=== PATIENT | male | born 1990 | race Caucasian/White ===

== ENCOUNTER 2020-02-26 11:14 | Emergency (ER) | payer SELFPAY ==
--- NOTE | 2020-02-26 12:04 | RAD REPORT ---
EXAM DESCRIPTION: RAD - Chest Pa And Lat (2 Views) - 02/26/2020 11:51 am CLINICAL HISTORY: DYSPNEA Chest pain. COMPARISON: No comparisons FINDINGS: The lungs are clear. The heart is upper limit of normal in size. No displaced fractures. IMPRESSION: No acute finding suspected.
[2020-02-26 12:24] LABS: Absolute Lymphocytes (CBC) 1.3 K/uL (0.7-4.9); Basophils % 0.6 % (0-1.3); Hematocrit 45.1 % (39.6-49.0); Lymphocytes % 15.8 % (15.3-44.8); MPV 8.8 fL (7.6-11.3); RBC Red Blood Cell Count 5.66 M/uL (4.33-5.43)
[2020-02-26 12:46] LABS: BUN Blood Urea Nitrogen 15 mg/dL (7-18); Bicarbonate 32 mmol/L (21-32); Glucose Level 98 mg/dL (74-106); Sodium Level 141 mmol/L (136-145)
[2020-02-26 12:47] LABS: Potassium 2.8 mmol/L (3.5-5.1)
[2020-02-26] MEDS ORDERED: POTASSIUM 25 MEQ EFFERV TAB ONE (13:39)
[2020-02-26] MEDS ORDERED: KCL 20 MEQ/100 mL IVPB 20 MEQ/100 ML BAG IV ONE (13:40)
[2020-02-26] MEDS ORDERED: NA CHLORIDE 0.9% 1,000 ML ONE (13:40)
[2020-02-26] MEDS ORDERED: cloNIDine HCL 0.1 MG TAB ONE (13:55)
--- NOTE | 2020-02-26 14:41 | ER ---
Nurse's Notes [facility] Name: Jameel Patel Age: 29 yrs Sex: Male : 1990 Arrival Date: 02/26/2020 Time: 11:19 Bed 20 Private MD: Randy Bermudez Diagnosis: Essential (primary) hypertension;Hypokalemia Presentation: 02/25 11:23 Chief complaint: "My whole body has been cramped up for the last 2 days.". Coronavirus hb screen: Proceed with normal triage. Ebola Screen: No symptoms or risks identified at this time. Initial Sepsis Screen: Does the patient meet any 2 criteria? No. Patient's initial sepsis screen is negative. Does the patient have a suspected source of infection? No. Patient's initial sepsis screen is negative. Risk Assessment: Do you want to hurt yourself or someone else? Patient reports no desire to harm self or others. Onset of symptoms was February 24, 2020. 11:23 Method Of Arrival: Ambulatory hb 11:23 Acuity: PAT 3 hb Historical: - Allergies: 11:29 No Known Allergies; hb - Home Meds: 11:28 metoprolol tartrate 100 mg Oral tab 1 tab once daily [Active]; hb - PMHx: 11:28 Hypertension; hb - PSHx: 11:29 Aneurysm; hb - Immunization history:: Adult Immunizations up to date. - Social history:: Smoking status: Patient denies any tobacco usage or history of. Screenin:58 Abuse screen: Denies threats or abuse. Denies injuries from another. Nutritional ph screening: No deficits noted. Tuberculosis screening: No symptoms or risk factors identified. Fall Risk None identified. Assessment: 12:20 General: Appears in no apparent distress. comfortable, obese, well groomed, Behavior is ph calm, cooperative, appropriate for age, Denies fever, feeling ill. Pain: Complains of pain in buttocks, right arm, left arm, right leg and left leg Quality of pain is described as crampy, Is intermittent. Neuro: Level of Consciousness is awake, alert, obeys commands, Oriented to person, place, time, situation. Cardiovascular: Denies chest pain, lightheadedness, shortness of breath. Respiratory: Airway is patent Respiratory effort is even, unlabored, Respiratory pattern is regular, symmetrical, Denies cough, shortness of breath. GI: Patient currently denies abdominal pain, diarrhea, nausea, vomiting. Derm: Skin is intact, is healthy with good turgor, Skin is pink, warm \\T\\ dry. Musculoskeletal: Circulation, motion, and sensation intact. Range of motion: intact in all extremities. 14:00 Reassessment: Patient appears in no apparent distress at this time. Patient and/or ph family updated on plan of care and expected duration. Pain level reassessed. Patient is alert, oriented x 3, equal unlabored respirations, skin warm/dry/pink. 15:00 Reassessment: Patient appears in no apparent distress at this time. Patient and/or ph family updated on plan of care and expected duration. Pain level reassessed. Patient is alert, oriented x 3, equal unlabored respirations, skin warm/dry/pink. D/C pending completion of IV potassium. Vital Signs: 11:24 BP 191 / 135; Pulse 74; Resp 20; Temp 98(TE); Pulse Ox 96% ; Weight 197.31 kg; Height 6 hb ft. (182.88 cm); Pain 5/10; 12:44 BP 194 / 111; Pulse 79; Resp 18; Pulse Ox 98% on R/A; ph 14:00 BP 198 / 123; Pulse 82; Resp 18; Pulse Ox 98% on R/A; ph 15:00 BP 176 / 111; Pulse 78; Resp 18; Pulse Ox 98% on R/A; ph 11:24 Body Mass Index 59.00 (197.31 kg, 182.88 cm) hb ED Course: 11:19 Patient arrived in ED. mr 11:19 [facility] De Le[facility]-C [facility]. kb 11:19 Priyank Forte MD is Attending Physician. kb 11:19 Randy eBrmudez is Private Physician. mr 11:24 Triage completed. hb 11:29 Arm band placed on. hb 11:43 Graciela Graham, JUANY is Primary Nurse. ph 11:49 Chest Pa And Lat (2 Views) XRAY In Process Unspecified. EDMS 11:59 Patient has correct armband on for positive identification. Bed in low position. Call ph light in reach. Side rails up X 1. Pulse ox on. NIBP on. Door closed. Noise minimized. Warm blanket given. 12:15 Initial lab(s) drawn, by me, sent to lab. Inserted saline lock: 20 gauge in right jp3 forearm, using aseptic technique. Blood collected. 12:15 Patient maintains SpO2 saturation greater than 95% on room air. jp3 15:03 No provider procedures requiring assistance completed. ph Administered Medications: 13:45 Drug: Potassium Effervescent Tablet 50 mEq Route: PO; ph 14:00 Follow up: Response: No adverse reaction ph 13:45 Drug: NS 0.9% 1000 ml Route: IV; Rate: 1000 ml; Site: right forearm; ph 15:30 Follow up: Response: No adverse reaction; IV Status: Completed infusion ph 13:46 Drug: Potassium Chloride 20 mEq Route: IV; Rate: 1 calculated rate; Site: right forearm;ph 15:30 Follow up: Response: No adverse reaction; IV Status: Completed infusion ph 13:57 Drug: cloNIDine 0.2 mg Route: PO; ph 14:45 Follow up: Response: No adverse reaction; Blood pressure is lowered ph Outcome: 14:40 Discharge ordered by . kb 15:37 Patient left the ED. bd Signatures: Dispatcher [employer] EDMS Ana De León, PET STYLIST-C PET STYLIST-CkRosario Sousa, Vicki mr Graciela Graham RN RN Jossie Malhotra, JUANY RN Terrell Alvarez 3
--- NOTE | 2020-02-26 14:41 | EDPHYS ---
Physician Documentation [facility] Name: Jameel Patel Age: 29 yrs Sex: Male : 1990 Arrival Date: 02/26/2020 Time: 11:19 Bed 20 Private MD: Randy Bermudez ED Physician Priyank Forte HPI: 02/25 14:38 This 29 yrs old Male presents to ER via Ambulatory with complaints of Body kb aches. 14:38 Pt reports muscle cramps that started this morning. States he drank a lot of water and kb took some potassium supplements, but it didn't improve. . Onset: The symptoms/episode began/occurred today. Severity of symptoms: At their worst the symptoms were moderate in the emergency department the symptoms are unchanged. The patient has experienced similar episodes in the past. The patient has not recently seen a physician. Pt is asymptomatic of BP. States 180/120-130 is normal for him. 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 Historical: - Allergies: 11:29 No Known Allergies; hb - Home Meds: 11:28 metoprolol tartrate 100 mg Oral tab 1 tab once daily [Active]; hb - PMHx: 11:28 Hypertension; hb - PSHx: 11:29 Aneurysm; hb - Immunization history:: Adult Immunizations up to date. - Social history:: Smoking status: Patient denies any tobacco usage or history of. ROS: 14:35 Constitutional: Negative for fever, chills, and weight loss, Neck: Negative for injury, kb pain, and swelling, Cardiovascular: Negative for chest pain, palpitations, and edema, Abdomen/GI: Negative for abdominal pain, nausea, vomiting, diarrhea, and constipation, Back: Negative for injury and pain, Skin: Negative for injury, rash, and discoloration, Neuro: Negative for headache, weakness, numbness, tingling, and seizure. 14:35 Respiratory: Positive for shortness of breath, on exertion. Negative for cough, dyspnea on exertion, hemoptysis, orthopnea, pleurisy, sputum production, wheezing. 14:35 MS/extremity: Positive for muscle cramps. Exam: 14:35 Constitutional: This is a well developed, well nourished patient who is awake, alert, kb and in no acute distress. Head/Face: Normocephalic, atraumatic. ENT: Nares patent. No nasal discharge, no septal abnormalities noted. Tympanic membranes are normal and external auditory canals are clear. Oropharynx with no redness, swelling, or masses, exudates, or evidence of obstruction, uvula midline. Mucous membranes moist. Neck: Trachea midline, no thyromegaly or masses palpated, and no cervical lymphadenopathy. Supple, full range of motion without nuchal rigidity, or vertebral point tenderness. No Meningismus. Chest/axilla: Normal chest wall appearance and motion. Nontender with no deformity. No lesions are appreciated. Cardiovascular: Regular rate and rhythm with a normal S1 and S2. No gallops, murmurs, or rubs. Normal PMI, no JVD. No pulse deficits. Abdomen/GI: Soft, non-tender, with normal bowel sounds. No distension or tympany. No guarding or rebound. No evidence of tenderness throughout. Back: No spinal tenderness. No costovertebral tenderness. Full range of motion. Skin: Warm, dry with normal turgor. Normal color with no rashes, no lesions, and no evidence of cellulitis. MS/ Extremity: Pulses equal, no cyanosis. Neurovascular intact. Full, normal range of motion. Neuro: Awake and alert, GCS 15, oriented to person, place, time, and situation. Cranial nerves II-XII grossly intact. Motor strength 5/5 in all extremities. Sensory grossly intact. Cerebellar exam normal. Normal gait. 14:35 Respiratory: mild respiratory distress is noted, Respirations: labored breathing, that is mild, Breath sounds: are clear throughout. Vital Signs: 11:24 BP 191 / 135; Pulse 74; Resp 20; Temp 98(TE); Pulse Ox 96% ; Weight 197.31 kg; Height 6 hb ft. (182.88 cm); Pain 5/10; 12:44 BP 194 / 111; Pulse 79; Resp 18; Pulse Ox 98% on R/A; ph 14:00 BP 198 / 123; Pulse 82; Resp 18; Pulse Ox 98% on R/A; ph 15:00 BP 176 / 111; Pulse 78; Resp 18; Pulse Ox 98% on R/A; ph 11:24 Body Mass Index 59.00 (197.31 kg, 182.88 cm) hb MDM: 11:30 Patient medically screened. kb 14:37 Data reviewed: vital signs, nurses notes. Data interpreted: Pulse oximetry: on room air kb is 98 %. Interpretation: normal. Counseling: I had a detailed discussion with the patient and/or guardian regarding: the historical points, exam findings, and any diagnostic results supporting the discharge/admit diagnosis, lab results, the need for outpatient follow up, a family practitioner, to return to the emergency department if symptoms worsen or persist or if there are any questions or concerns that arise at home. 14:41 ED course: Pt did not c/o shortness of breath, but appeared to be short of breath so I kb asked him about it. States he had to walk down stairs and then walk when he got here so he got winded. 02/25 11:29 Order name: CBC with Diff; Complete Time: 12:47 kb 02/25 11:29 Order name: Basic Metabolic Panel; Complete Time: 12:49 kb 02/25 11:29 Order name: Chest Pa And Lat (2 Views) XRAY; Complete Time: 12:10 kb 02/25 11:29 Order name: EKG; Complete Time: 11:31 kb 02/25 11:29 Order name: EKG - Nurse/Tech; Complete Time: 11:58 kb 02/25 11:29 Order name: IV Start; Complete Time: 12:21 kb Administered Medications: 13:45 Drug: Potassium Effervescent Tablet 50 mEq Route: PO; ph 14:00 Follow up: Response: No adverse reaction ph 13:45 Drug: NS 0.9% 1000 ml Route: IV; Rate: 1000 ml; Site: right forearm; ph 15:30 Follow up: Response: No adverse reaction; IV Status: Completed infusion ph 13:46 Drug: Potassium Chloride 20 mEq Route: IV; Rate: 1 calculated rate; Site: right forearm;ph 15:30 Follow up: Response: No adverse reaction; IV Status: Completed infusion ph 13:57 Drug: cloNIDine 0.2 mg Route: PO; ph 14:45 Follow up: Response: No adverse reaction; Blood pressure is lowered ph Disposition: 19:10 Co-signature as Attending Physician, Priyank Forte MD Available for consultation in ps1 the ED. . Disposition: 02/26/20 14:40 Discharged to Home. Impression: Essential (primary) hypertension, Hypokalemia. - Condition is Stable. - Discharge Instructions: Hypertension, [place], Hypokalemia. - Medication Reconciliation Form, Thank You Letter, Antibiotic Education, Prescription Opioid Use, Work release form form. - Follow up: Emergency Department; When: As needed; Reason: Worsening of condition. Follow up: Private Physician; When: 2 - 3 days; Reason: Recheck today's complaints, Continuance of care, Re-evaluation by your physician. Signatures: Dispatcher [employer] EDMS Ana De León, PHARMACY COORDINATOR-C PHARMACY COORDINATOR-Ckpatricia Clemente RosarioGraciela Willett, RN RN Jossie Anderson, JUANY RN Priyank Forte MD MD ps1 Corrections: (The following items were deleted from the chart) 15:37 14:40 02/26/2020 14:40 Discharged to Home. Impression: Essential (primary) bd hypertension; Hypokalemia. Condition is Stable. Forms are Medication Reconciliation Form, Thank You Letter, Antibiotic Education, Prescription Opioid Use. Follow up: Emergency Department; When: As needed; Reason: Worsening of condition. Follow up: Private Physician; When: 2 - 3 days; Reason: Recheck today's complaints, Continuance of care, Re-evaluation by your physician. kb
[2020-02-26 16:18] VITALS: TEMP 98
[2020-02-26 16:25] VITALS: O2SAT 98
[2020-02-26 16:28] VITALS: BP 176/111
--- NOTE | 2020-02-27 16:20 | EKG ---
Test Date: 2020-02-26 Test Time: 11:58:47 Outpatient Receptionist: AIMEE MEASUREMENT RESULTS: Intervals: Rate: 82 MS: 192 QRSD: 132 QT: 406 QTc: 474 Heppner: P: 46 MS: 192 QRS: -37 T: 92 INTERPRETIVE STATEMENTS: Sinus rhythm with premature supraventricular complexes Left axis deviation Left ventricular hypertrophy with QRS widening and repolarization abnormality Abnormal ECG No previous ECG available for comparison Electronically Signed On 02-27-20 16:18:11 CDT by Martinez Goyal
== END 2020-02-26 15:37 | disposition home or self-care (01) ==
LOC: ER 11:14
DX: E87.6 Hypokalemia (principal); I10 Essential (primary) hypertension
CPT/HCPCS: 36415; 71046; 80048; 85025; 93005; 96365; 96366; 99284; J7030

== ENCOUNTER 2021-07-27 10:27 | Emergency (ER) | payer SELFPAY ==
[2021-07-27 11:30] LABS: BUN Blood Urea Nitrogen 11 mg/dL (7-18); Bicarbonate 32 mmol/L (21-32); Glucose Level 104 mg/dL (74-106); Magnesium 1.9 mg/dL (1.8-2.4); Sodium Level 139 mmol/L (136-145)
[2021-07-27 11:31] LABS: Absolute Lymphocytes (CBC) 1.4 K/uL (0.7-4.9); Basophils % 0.5 % (0-1.3); Hematocrit 43.7 % (39.6-49.0); Lymphocytes % 17.7 % (15.3-44.8); MPV 8.5 fL (7.6-11.3); RBC Red Blood Cell Count 5.47 M/uL (4.33-5.43)
[2021-07-27] MEDS ORDERED: CYCLOBENZAPRINE 10 MG TAB ONE (11:31)
[2021-07-27 11:32] LABS: Potassium 2.7 mmol/L (3.5-5.1)
[2021-07-27] MEDS ORDERED: POTASSIUM CL 40 MEQ in NA CHLORIDE 0.9% 1,000 ML IV ONE (12:00)
[2021-07-27] MEDS ORDERED: MAGNESIUM SULFATE 1 gm IVPB 1 GM/100 ML BAG IV ONE (12:24)
[2021-07-27] MEDS ORDERED: NA CHLORIDE 0.9% 500 ML ONE (12:29)
[2021-07-27] MEDS ORDERED: POTASSIUM CL SA 10 MEQ TAB PO ONE (13:18)
--- NOTE | 2021-07-27 13:31 | EDPHYS ---
Physician Documentation [facility] Name: Jameel Patel Age: 30 yrs Sex: Male : 1990 Arrival Date: 07/27/2021 Time: 10:29 Bed 6 Private MD: ED Physician Mando Durán HPI: 07/27 11:28 This 30 yrs old Male presents to ER via Ambulatory with complaints of Body kb Cramps. 11:29 Pt reports muscle cramps in legs that started Homero. States it feels the same as when kb his potassium has been low in the past. . Onset: The symptoms/episode began/occurred 4 day(s) ago. Severity of symptoms: At their worst the symptoms were moderate in the emergency department the symptoms are unchanged. The patient has experienced similar episodes in the past, several times. The patient has not recently seen a physician. Historical: - Allergies: 10:40 No Known Allergies; hb - Home Meds: 10:40 metoprolol tartrate 100 mg Oral tab 1 tab once daily [Active]; amlodipine oral hb [Active]; spironolactone Oral [Active]; Potassium Chloride Oral [Active]; - PMHx: 10:40 Hypertension; hb - Immunization history:: Immunization history: Client reports receiving the 2nd dose of the Covid vaccine. - Social history:: Smoking status: Patient reports use of chewing tobacco. ROS: 11:27 Constitutional: Negative for fever, chills, and weight loss. kb 11:27 MS/extremity: Positive for muscle cramps. 11:27 All other systems are negative. Exam: 11:27 Constitutional: This is a well developed, well nourished patient who is awake, alert, kb and in no acute distress. Head/Face: Normocephalic, atraumatic. ENT: Moist Mucous membranes Respiratory: Respirations even and unlabored. No increased work of breathing, no retractions or nasal flaring. Skin: Warm, dry with normal turgor. Normal color. MS/ Extremity: Pulses equal, no cyanosis. Neurovascular intact. Full, normal range of motion. Neuro: Awake and alert, GCS 15, oriented to person, place, time, and situation. Moves all extremities. Normal gait. Psych: Awake, alert, with orientation to person, place and time. Behavior, mood, and affect are within normal limits. Vital Signs: 10:39 BP 223 / 98; Pulse 93; Resp 24; Temp 98.3; Pulse Ox 95% on R/A; Weight 172.37 kg; hb Height 6 ft. (182.88 cm); Pain 8/10; 12:16 BP 197 / 124 LA (auto/lg); Pulse 73; Resp 21; Pulse Ox 100% on R/A; ap3 14:15 BP 163 / 97; Pulse 76; Pulse Ox 100% on R/A; ap3 10:39 Body Mass Index 51.54 (172.37 kg, 182.88 cm) hb MDM: 10:42 Patient medically screened. kb 11:26 Data reviewed: vital signs, nurses notes. Data interpreted: Pulse oximetry: on room air kb is 95 %. Interpretation: normal. 11:27 ED course: Pt is asymptomatic of BP. States his BP is always high and he needs to get kb his medications adjusted by PCP. 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 12:14 Counseling: I had a detailed discussion with the patient and/or guardian regarding: the kb historical points, exam findings, and any diagnostic results supporting the discharge/admit diagnosis, lab results, the need for outpatient follow up, a family practitioner, to return to the emergency department if symptoms worsen or persist or if there are any questions or concerns that arise at home. 17:29 Differential Diagnosis hypokalemia, muscle spasm. kb 07/27 10:42 Order name: CBC with Diff; Complete Time: 11:34 kb 07/27 10:42 Order name: Basic Metabolic Panel; Complete Time: 11:34 kb 07/27 10:42 Order name: Magnesium; Complete Time: 11:34 kb Administered Medications: 11:06 Drug: Flexeril (cyclobenzaprine) 10 mg Route: PO; ap3 14:15 Follow up: Response: No adverse reaction ap3 12:10 Drug: NS 0.9% with KCl 40 mEq/L 1000 ml Route: IV; Rate: 500 ml/hr; Site: right hand; ll1 13:02 Drug: Potassium Chloride 40 mEq Route: PO; ap3 14:15 Follow up: Response: No adverse reaction ap3 Disposition: 15:27 Co-signature as Attending Physician, Mando Durán MD I agree with the assessment and rn plan of care. Attestation: The patient's history, exam findings, diagnostics, and a summary of any interventions or procedures was reviewed in detail with Ana LILLY. Disposition Summary: 07/27/21 13:31 Discharge Ordered Location: Home kb Condition: Stable kb Diagnosis - Essential (primary) hypertension kb - Hypokalemia kb Followup: kb - With: Emergency Department - When: As needed - Reason: Worsening of condition Followup: kb - With: Private Physician - When: 2 - 3 days - Reason: Recheck today's complaints, Continuance of care, Re-evaluation by your physician Discharge Instructions: - Discharge Summary Sheet kb - Hypertension, Adult, [id number] kb - Hypokalemia kb - Managing Your Hypertension kb Forms: - Medication Reconciliation Form kb - Thank You Letter kb - Antibiotic Education kb - Prescription Opioid Use kb - Work release form ap3 Signatures: Dispatcher [employer] EDAna Jose FNP-C FNP-Mando Coyle MD MD rn Baxter, Heather RN JUANY Bridgette Khan RN RN ap3 Rajni Crawford RN RN ll1
--- NOTE | 2021-07-27 13:31 | ER ---
Nurse's Notes [facility] Name: Jameel Patel Age: 30 yrs Sex: Male : 1990 Arrival Date: 07/27/2021 Time: 10:29 Bed 6 Private MD: Diagnosis: Essential (primary) hypertension;Hypokalemia Presentation: 07/27 10:39 Chief complaint: Bilateral leg cramping x 2 days. Coronavirus screen: At this time, the hb client does not indicate any symptoms associated with coronavirus-19. Ebola Screen: No symptoms or risks identified at this time. Initial Sepsis Screen: Does the patient meet any 2 criteria? No. Patient's initial sepsis screen is negative. Does the patient have a suspected source of infection? No. Patient's initial sepsis screen is negative. Risk Assessment: Do you want to hurt yourself or someone else? Patient reports no desire to harm self or others. Onset of symptoms was July 26, 2021. 10:39 Method Of Arrival: Ambulatory hb 10:39 Acuity: PAT 3 hb Historical: - Allergies: 10:40 No Known Allergies; hb - Home Meds: 10:40 metoprolol tartrate 100 mg Oral tab 1 tab once daily [Active]; amlodipine oral hb [Active]; spironolactone Oral [Active]; Potassium Chloride Oral [Active]; - PMHx: 10:40 Hypertension; hb - Immunization history:: Immunization history: Client reports receiving the 2nd dose of the Covid vaccine. - Social history:: Smoking status: Patient reports use of chewing tobacco. Screenin:51 Abuse screen: Denies threats or abuse. Nutritional screening: No deficits noted. ap3 Tuberculosis screening: No symptoms or risk factors identified. Fall Risk No fall in past 12 months (0 pts). No secondary diagnosis (0 pts). IV access (20 points). Ambulatory Aid- Crutches/Cane/Walker (15 pts). Gait- Weak (10 pts.). Mental Status- Oriented to own ability (0 pts). Total Peters Fall Scale indicates Low Risk Score (25-44 pts). Fall prevention measures have been instituted. Side Rails Up X 2 Frequent Obs/Assesments occuring Family Present and informed to notify staff if they need to leave bedside As available Patient and Family Educated on Fall Prevention Program and strategies. Assessment: 10:50 General: Appears in no apparent distress. comfortable, Behavior is calm, cooperative, ap3 appropriate for age. Pain: Denies pain. Neuro: Level of Consciousness is awake, alert, obeys commands, Oriented to person, place, time, situation, Appropriate for age Moves all extremities. Cardiovascular: Capillary refill < 3 seconds Patient's skin is warm and dry. Respiratory: Airway is patent Respiratory effort is even, unlabored, Respiratory pattern is regular, symmetrical. Musculoskeletal: Reports off and on cramping in legs and upper body. 13:06 Reassessment: Patient and/or family updated on plan of care and expected duration. Pain ap3 level reassessed. Patient is alert, oriented x 3, equal unlabored respirations, skin warm/dry/pink. Vital Signs: 10:39 BP 223 / 98; Pulse 93; Resp 24; Temp 98.3; Pulse Ox 95% on R/A; Weight 172.37 kg; hb Height 6 ft. (182.88 cm); Pain 8/10; 12:16 BP 197 / 124 LA (auto/lg); Pulse 73; Resp 21; Pulse Ox 100% on R/A; ap3 14:15 BP 163 / 97; Pulse 76; Pulse Ox 100% on R/A; ap3 10:39 Body Mass Index 51.54 (172.37 kg, 182.88 cm) hb ED Course: 10:29 Patient arrived in ED. mr 10:35 Sarthak Ana, VIJAYA [facility]. kb 10:35 Mando Durán MD is Attending Physician. kb 10:40 Triage completed. hb 10:40 Arm band placed on. hb 10:50 Bridgette Khan, JUANY is Primary Nurse. ap3 10:51 Patient has correct armband on for positive identification. Call light in reach. Side ap3 rails up X 1. Adult w/ patient. efficiency manager on. Pulse ox on. NIBP on. Door closed. Noise minimized. 11:04 Inserted saline lock: 20 gauge in right hand, using aseptic technique. ap3 14:16 No provider procedures requiring assistance completed. IV discontinued, intact, ap3 bleeding controlled, No redness/swelling at site. Pressure dressing applied. Administered Medications: 11:06 Drug: Flexeril (cyclobenzaprine) 10 mg Route: PO; ap3 14:15 Follow up: Response: No adverse reaction ap3 12:10 Drug: NS 0.9% with KCl 40 mEq/L 1000 ml Route: IV; Rate: 500 ml/hr; Site: right hand; ll1 13:02 Drug: Potassium Chloride 40 mEq Route: PO; ap3 14:15 Follow up: Response: No adverse reaction ap3 Outcome: 13:31 Discharge ordered by MD. guillen 14:16 Discharged to home ambulatory. ap3 14:16 Condition: good 14:16 Discharge instructions given to patient, Instructed on discharge instructions, follow up and referral plans. Demonstrated understanding of instructions, follow-up care. 14:16 Patient left the ED. ap3 Signatures: Ana De León, VIJAYA UTILITY OPERATOR-Vicki Jones mr Jossie Anderson RN RN hb Prokisch, Amanda, RN RN ap3 Rajni Crawford RN RN ll1
[2021-07-27 14:29] VITALS: TEMP 98.3
[2021-07-27 14:31] VITALS: O2SAT 100
[2021-07-27 14:32] VITALS: BP 163/97
== END 2021-07-27 14:16 | disposition home or self-care (01) ==
LOC: ER 10:27
DX: E87.6 Hypokalemia (principal); I10 Essential (primary) hypertension; F17.220 Nicotine dependence, chewing tobacco, uncomplicated
CPT/HCPCS: 36415; 80048; 83735; 85025; 99284; J3475; J3480; J7030; J7040

== ENCOUNTER 2021-10-12 21:56 | Inpatient (IN) | payer SELFPAY ==
--- OUTSIDE RECORDS SUMMARY | 2021-10-12 21:59 | XMS REPORT | Continuity of Care Document ---
:1990 Author Organization [facility] t Address [address] Dutta [address] [place] [id number] Care Team Providers Name Role Phone Unavailable Unavailable Unavailable Problems This patient has no known problems. Allergies, Adverse Reactions, Alerts This patient has no known allergies or adverse reactions. Medications This patient has no known medications. Procedures This patient has no known procedures. Results This patient has no known results.
[2021-10-12 23:02] LABS: Absolute Lymphocytes (CBC) 0.7 K/uL (0.7-4.9); Protime INR 1.04
[2021-10-12] MEDS ORDERED: ASPIRIN 81 MG CHEWABLE TABLET ONE ×2 (23:11→23:14)
[2021-10-12 23:20] LABS: Basophils % 0.4 % (0-1.3); Hematocrit 43.7 % (39.6-49.0); Lymphocytes % 11.3 % (15.3-44.8); RBC Red Blood Cell Count 5.41 M/uL (4.33-5.43)
[2021-10-12] MEDS ORDERED: METOPROLOL TAR 50 MG TAB ONE (23:41)
[2021-10-12 23:48] LABS: Albumin 4.4 g/dL (3.4-5.0); Bilirubin Direct 0.2 mg/dL (0-0.2); Bilirubin Total 0.8 mg/dL (0.2-1.0); Magnesium 2.1 mg/dL (1.8-2.4); Protein, Total 8.8 g/dL (6.4-8.2); Troponin (Emerg Dept Use Only) 0.14 ng/mL (0.0-0.045)
[2021-10-12 23:49] LABS: Potassium 2.7 mmol/L (3.5-5.1)
[2021-10-12] MEDS ORDERED: METOPROLOL TARTRATE 5 MG/5 ML INJ IV ONE (23:50)
[2021-10-13] MEDS ORDERED: POTASSIUM 25 MEQ EFFERV TAB ONE (00:03)
[2021-10-13] MEDS ORDERED: ENOXAPARIN 100 MG/ML SYR SQ ONE (00:04)
[2021-10-13] MEDS ORDERED: KCL 20 MEQ/100 mL IVPB 100 ML IV ONE (00:04)
--- NOTE | 2021-10-13 00:04 | EDPHYS ---
Physician Documentation [facility] Name: Jameel Patel Age: 30 yrs Sex: Male : 1990 Arrival Date: 10/12/2021 Time: 22:00 Bed 16 Private MD: ED Physician Mehdi Fernandez HPI: 10/12 22:59 This 30 yrs old Male presents to ER via Ambulatory with complaints of Chest pm1 Pain > 30 y/o. 22:59 The patient or guardian reports chest pain that is located primarily in the mid-sternal pm1 area. The pain does not radiate. Associated signs and symptoms: Pertinent positives: shortness of breath, occasional cough, Pertinent negatives: abdominal pain, diaphoresis, dizziness, headache, nausea, vomiting. The chest pain is described as discomfort. Duration: The patient or guardian reports multiple episodes, that have now resolved. Modifying factors: The symptoms are alleviated by rest, the symptoms are aggravated by activity. Severity of pain: in the emergency department the pain has improved. The patient has not experienced similar symptoms in the past. The patient has not recently seen a physician. Patient presenting to the ER with complaints of chest pain started last night at work. Located in the midsternal area without radiation. His chest pain and shortness of breath is exacerbated by light activity, walking, and relieved with rest. Patient reports this chest pain and shortness of breath are worse today with exertion than yesterday. Symptoms all relieved with rest. 22:59 Patient's brother at age 33 from [place]. pm1 Historical: - Home Meds: 22:20 Spironolactone Oral [Active]; Potassium Chloride Oral [Active]; amlodipine oral kd3 [Active]; metoprolol tartrate 100 mg Oral tab 1 tab once daily [Active]; - PMHx: 22:20 Hypertension; kd3 - Immunization history:: Adult Immunizations up to date, Client reports receiving the Pepito \\T\\ Pepito single-dose vaccine. Note received in January 2021. - Social history:: Smoking status: Patient reports the use of cigarette tobacco products, denies chronic smoking, but will smoke occasionally, Patient reports use of chewing tobacco. ROS: 22:59 Constitutional: Negative for fever, chills, and weight loss. pm1 22:59 Abdomen/GI: Negative for abdominal pain, nausea, vomiting, diarrhea, and constipation, Back: Negative for injury and pain, MS/Extremity: Negative for injury and deformity, Skin: Negative for injury, rash, and discoloration, Neuro: Negative for headache, weakness, numbness, tingling, and seizure. 22:59 Cardiovascular: Positive for chest pain, with exertion, Negative for palpitations. 22:59 Respiratory: Positive for shortness of breath, on exertion. 22:59 All other systems are negative. Exam: 22:59 Constitutional: This is a well developed, well nourished patient who is awake, alert, pm1 and in no acute distress. Head/Face: Normocephalic, atraumatic. 22:59 Back: No spinal tenderness. No costovertebral tenderness. Full range of motion. Skin: Warm, dry with normal turgor. Normal color with no rashes, no lesions, and no evidence of cellulitis. MS/ Extremity: Pulses equal, no cyanosis. Neurovascular intact. Full, normal range of motion. 22:59 Eyes: Exam is negative for acute changes, Extraocular movements: no acute changes, Conjunctiva: no acute changes, no injection, Sclera: no acute changes, icterus, is not appreciated. 22:59 ENT: Exam is negative for acute changes, Mouth: no acute changes, Lips: normal, moist, Oral mucosa: normal, pink and intact, moist. 22:59 Chest/axilla: Exam negative for acute changes, Inspection: normal, Palpation: is normal. 22:59 Cardiovascular: Exam negative for acute changes, Rate: normal, Rhythm: regular, Pulses: no pulse deficits are appreciated, Heart sounds: normal. 22:59 Respiratory: Exam negative for acute changes, respiratory distress, shortness of breath, Breath sounds: are clear throughout. 22:59 Abdomen/GI: Inspection: obese Palpation: abdomen is soft and non-tender, in all quadrants. 22:59 Neuro: Exam negative for acute changes, Orientation: is normal, Mentation: is normal, Motor: is normal, moves all fours. Vital Signs: 22:10 BP 172 / 98; Pulse 98; Resp 18; Temp 99.2; Pulse Ox 98% on R/A; Pain 5/10; kd3 23:30 BP 195 / 131; Pulse 93; Resp 17; Pulse Ox 100% on R/A; kd3 23:57 Weight 165.56 kg; kd3 10/13 00:31 BP 147 / 100; Pulse 86; Resp 16; Pulse Ox 100% on R/A; kd3 01:27 BP 161 / 99; Pulse 75; Resp 18; Pulse Ox 99% on R/A; kd3 MDM: 10/12 22:24 Patient medically screened. pm1 10/13 00:00 ED course: CT chest PE protocol due to patient presented to ER with chest pain and pm1 shortness of breath with exertion, elevated troponin, elevated D-dimer. 00:15 Data reviewed: vital signs. Data interpreted: Pulse oximetry: on room air is 100 %. pm1 Interpretation: normal. 10/12 22:50 Order name: Basic Metabolic Panel pm1 10/12 22:50 Order name: CBC with Diff; Complete Time: 23:26 pm1 10/12 22:50 Order name: LFT's; Complete Time: 23:50 pm1 10/12 22:50 Order name: Magnesium; Complete Time: 23:50 pm1 10/12 22:50 Order name: NT PRO-BNP; Complete Time: 23:50 pm1 10/12 22:50 Order name: PT-INR; Complete Time: 00:16 pm1 10/12 22:50 Order name: Troponin (emerg Dept Use Only); Complete Time: 23:50 pm1 10/12 22:50 Order name: XRAY Chest (1 view) pm1 10/12 22:50 Order name: COVID-19/FLU A+B (Document "Date of Onset" if Symptomatic); Complete Time: pm1 00:24 10/12 22:50 Order name: Basic Metabolic Panel; Complete Time: 23:50 EDMS 10/12 23:50 Order name: D-Dimer; Complete Time: 00:16 EDMS 10/12 23:58 Order name: CT Chest For PE Angio pm1 10/12 22:50 Order name: EKG; Complete Time: 22:51 pm1 10/12 22:50 Order name: Cardiac monitoring; Complete Time: 22:52 pm1 10/12 22:50 Order name: EKG - Nurse/Tech; Complete Time: 22:52 pm1 10/12 22:50 Order name: IV Saline Lock; Complete Time: 23:28 pm1 10/12 22:50 Order name: Labs collected and sent; Complete Time: 23:09 pm1 10/12 22:50 Order name: O2 Per Protocol; Complete Time: 22:52 pm1 10/12 22:50 Order name: O2 Sat Monitoring; Complete Time: 22:52 pm1 Administered Medications: 10/12 23:29 Drug: Aspirin Chewable Tablet 324 mg Route: PO; kd3 23:46 Drug: Metoprolol TARTRATE 50 mg Route: PO; kd3 10/13 00:26 Drug: Potassium Effervescent Tablet 50 mEq Route: PO; kd3 00:27 Drug: Lopressor (metoprolol) 5 mg Route: IVP; Site: right antecubital; kd3 00:27 Drug: Lovenox (enoxaparin) 1 mg/kg Route: Sub-Q; Site: left lower abdomen; kd3 00:45 Drug: Potassium Chloride 20 mEq Route: IV; Rate: calculated rate; Site: right kd3 antecubital; Disposition: 02:19 Co-signature as Attending Physician, Mehdi Fernandez MD I agree with the assessment and kdr plan of care. Disposition Summary: 10/13/21 00:03 Hospitalization Ordered Hospitalization Status: Inpatient Admission pm1 Provider: Jose G Durán pm1 Location: Telemetry/MedSur (Inpatient) pm1 Condition: Stable pm1 Problem: new pm1 Symptoms: have improved pm1 Bed/Room Type: Standard pm1 Room Assignment: [facility](10/13/21 00:27) Diagnosis - NSTEMI pm1 - Coronavirus infection, unspecified pm1 Forms: - Medication Reconciliation Form pm1 - SBAR form pm1 Signatures: Dispatcher [employer] [facility] Michelle Pulliam RN RN mw Rittger, Kevin, MD MD kdr Marinas, Patrick, NP QUALITY ASSURANCE PROJECT MANAGER pm1 Maine Keenan RN RN kd3 Corrections: (The following items were deleted from the chart) 10/12 23:50 23:28 D-DIMER+COAG.LAB.BRZ ordered. [facility] 10/13 00:27 00:03 pm1 neli
--- NOTE | 2021-10-13 00:04 | ER ---
Nurse's Notes [facility] Name: Jameel Patel Age: 30 yrs Sex: Male : 1990 Arrival Date: 10/12/2021 Time: 22:00 Bed 16 Private MD: Diagnosis: NSTEMI;Coronavirus infection, unspecified Presentation: 10/12 22:10 Chief complaint: Patient states: pt states he has non radiating chest pain with kd3 inspiration and nausea pt states that he "struggles to breathe when he ambulates". he denies direct contact with sick persons but he does work with the public. Coronavirus screen: chills, difficulty breathing, fatigue, nausea. Ebola Screen: Patient negative for fever greater than or equal to 101.5 degrees Fahrenheit, and additional compatible Ebola Virus Disease symptoms Patient denies exposure to infectious person. Patient denies travel to an Ebola-affected area in the 21 days before illness onset. No symptoms or risks identified at this time. Initial Sepsis Screen: Does the patient meet any 2 criteria? No. Patient's initial sepsis screen is negative. Does the patient have a suspected source of infection? No. Patient's initial sepsis screen is negative. Risk Assessment: Do you want to hurt yourself or someone else? Patient reports no desire to harm self or others. Onset of symptoms was October 11, 2021. 22:10 Method Of Arrival: Ambulatory kd3 22:25 Acuity: PAT 3 kd3 Triage Assessment: 22:20 General: Appears in no apparent distress. Behavior is calm, cooperative, appropriate kd3 for age. Pain: Complains of pain in chest. Cardiovascular: Reports chest pain. Respiratory: Reports shortness of breath on exertion since yesterday. 22:20 Neuro: No deficits noted. Level of Consciousness is awake, alert, obeys commands, kd3 Oriented to person, place, time, situation, Appropriate for age. GI: Reports diarrhea. : No deficits noted. Derm: No deficits noted. Musculoskeletal: No deficits noted. Historical: - Home Meds: 22:20 Spironolactone Oral [Active]; Potassium Chloride Oral [Active]; amlodipine oral kd3 [Active]; metoprolol tartrate 100 mg Oral tab 1 tab once daily [Active]; - PMHx: 22:20 Hypertension; kd3 - Immunization history:: Adult Immunizations up to date, Client reports receiving the Pepito \\T\\ Pepito single-dose vaccine. Note received in January 2021. - Social history:: Smoking status: Patient reports the use of cigarette tobacco products, denies chronic smoking, but will smoke occasionally, Patient reports use of chewing tobacco. Screenin:24 Abuse screen: Denies threats or abuse. Denies injuries from another. Nutritional kd3 screening: No deficits noted. Tuberculosis screening: No symptoms or risk factors identified. Fall Risk IV access (20 points). Assessment: 22:25 Pain: Pain does not radiate. Pain began 1 day ago. kd3 23:29 Reassessment: No changes from previously documented assessment. Patient is alert, kd3 oriented x 3, equal unlabored respirations, skin warm/dry/pink. Vital Signs: 22:10 BP 172 / 98; Pulse 98; Resp 18; Temp 99.2; Pulse Ox 98% on R/A; Pain 5/10; kd3 23:30 BP 195 / 131; Pulse 93; Resp 17; Pulse Ox 100% on R/A; kd3 23:57 Weight 165.56 kg; kd3 12 00:31 BP 147 / 100; Pulse 86; Resp 16; Pulse Ox 100% on R/A; kd3 01:27 BP 161 / 99; Pulse 75; Resp 18; Pulse Ox 99% on R/A; kd3 ED Course: 10/12 22:00 Patient arrived in ED. bp1 22:02 Maine Keenan RN is Primary Nurse. kd3 22:12 Myke Flores NP is PHCP. pm1 22:12 Mehdi Fernandez MD is Attending Physician. pm1 22:20 Arm band placed on right wrist. kd3 22:24 Patient has correct armband on for positive identification. Bed in low position. Call 3 light in reach. monitoring engineer on. Pulse ox on. NIBP on. 22:24 Patient maintains SpO2 saturation greater than 95% on room air. kd3 22:25 Triage completed. kd3 22:54 Missed attempt(s): 22 gauge in right hand. 24 gauge in right antecubital area. Bleeding ds4 controlled, band aid applied, catheter tip intact. 23:10 COVID-19/FLU A+B (Document "Date of Onset" if Symptomatic) Sent. kd3 23:36 XRAY Chest (1 view) In Process Unspecified. EDMS 23:56 Notified Nurse Practitioner and/or Physician Machine Farmworker of a critical lab result(s), lp1 D-Dimer 795. 10/13 00:03 Jose G Durán MD is Hospitalizing Provider. pm1 Administered Medications: 10/12 23:29 Drug: Aspirin Chewable Tablet 324 mg Route: PO; kd3 23:46 Drug: Metoprolol TARTRATE 50 mg Route: PO; kd3 10/13 00:26 Drug: Potassium Effervescent Tablet 50 mEq Route: PO; kd3 00:27 Drug: Lopressor (metoprolol) 5 mg Route: IVP; Site: right antecubital; kd3 00:27 Drug: Lovenox (enoxaparin) 1 mg/kg Route: Sub-Q; Site: left lower abdomen; kd3 00:45 Drug: Potassium Chloride 20 mEq Route: IV; Rate: calculated rate; Site: right kd3 antecubital; Outcome: 00:03 Decision to Hospitalize by Provider. pm1 02:17 Patient left the ED. ds4 Signatures: Dispatcher [employer] EDMS Shayla Valencia RN RN lp1 Kush Richards ds4 Myke Flores NP DRILLER OPERATOR pm1 Sharee Stevens Kyli, RN RN kd3 Corrections: (The following items were deleted from the chart) 10/12 23:50 23:46 D-DIMER+COAG.LAB.BRZ drawn and sent. kd3 EDMS
[2021-10-13] MEDS ORDERED: ENOXAPARIN 60 MG/0.6 ML SQ ONE (00:05)
[2021-10-13 00:19] LABS: SARS-COV-2 RT PCR POSITIVE (NEGATIVE)
[2021-10-13] MEDS ORDERED: NA CHLORIDE 0.9% 250 ML ONE (00:36)
--- NOTE | 2021-10-13 00:39 | P.HP ---
Certification for Inpatient Patient admitted to: Inpatient With expected LOS: >2 Midnights Patient will require the following post-hospital care: None Practitioner: I am a practitioner with admitting privileges, knowledge of patient current condition, hospital course, and medical plan of care. Services: Services provided to patient in accordance with Admission requirements found in Title 42 Section 412.3 of the Code of Federal Regulations <Dave Amezquita - Last Filed: 10/13/21 00:38> Patient History Date of Service: 10/13/21 Primary Care Provider: Dr. Montesinos Reason for admission: NSTEMI History of Present Illness: 30-year-old male with history of hypertension presents emergency depa rtment for dyspnea on exertion and chest pain. Patient reports that he is noted increasing shortness of breath with exertion over the course of last few months significantly worse this evening along with having some substernal nonradiating pressure-like chest pain that started yesterday. Patient was evaluated in the emergency department labs were significant for potassium 2.7 troponin 0.14 BNP 1 114, EKG with frequent PACs/PVCs and occasional runs of SVT but no ST elevation. Patient given full dose Lovenox, aspirin, beta-liane in the ER and emergency department provider wishes to admit for further evaluation and management. - Past Medical/Surgical History -: Hypertension -: Brain aneurysm with coiling Psychosocial/ Personal History: Patient sells cell phones, lives at home with family - Family History Father -: Heart disease Brother -: Heart disease - Social History Smoking Status: Never smoker Alcohol use: No CD- Drugs: No Caffeine use: Yes Place of Residence: Home <Dave Amezquita - Last Filed: 10/13/21 00:38> Date of Service: 10/13/21 <Jose G Durán - Last Filed: 10/13/21 12:54> Allergies No Known Allergies Allergy (Verified 10/13/21 02:09) Review of Systems 10-point ROS is otherwise unremarkable Respiratory: SOB with Excertion, As per HPI Cardiovascular: Chest Pain <Dave Amezquita - Last Filed: 10/13/21 00:38> Physical Examination - Physical Exam General: Alert, In no apparent distress, Obese HEENT: Atraumatic, PERRLA, Mucous membr. moist/pink, EOMI, Sclerae nonicteric Neck: Supple, 2+ carotid pulse no bruit, No LAD, Without JVD or thyroid abnormality Respiratory: Clear to auscultation bilaterally, Diminished Cardiovascular: Regular rate/rhythm, Irregular heart rate/rhythm (Sinus rhythm with frequent PAC/PVC and occasional runs of SVT up to 150) Gastrointestinal: Normal bowel sounds, No tenderness Musculoskeletal: No tenderness Integumentary: No rashes Neurological: Normal speech, Normal strength at 5/5 x4 extr, Normal tone, Normal affect Lymphatics: No axilla or inguinal lymphadenopathy - Studies Laboratory Data (last 24 hrs) 10/12/21 22:45: PT 12.0, INR 1.04 10/12/21 22:45: WBC 6.50, Hgb 14.9, Hct 43.7, Plt Count 256 10/12/21 22:45: Sodium 138, Potassium 2.7 L*, BUN 11, Creatinine 1.08, Glucose 87, Magnesium 2.1, Total Bilirubin 0.8, AST 47 H, ALT 74, Alkaline Phosphatase 49 <Dave Amezquita - Last Filed: 10/13/21 00:38> - Studies Laboratory Data (last 24 hrs) 10/12/21 22:45: PT 12.0, INR 1.04 10/12/21 22:45: WBC 6.50, Hgb 14.9, Hct 43.7, Plt Count 256 10/12/21 22:45: Sodium 138, Potassium 2.7 L*, BUN 11, Creatinine 1.08, Glucose 87, Magnesium 2.1, Total Bilirubin 0.8, AST 47 H, ALT 74, Alkaline Phosphatase 49 <Jose G Durán - Last Filed: 10/13/21 12:54> Assessment and Plan - Plan Assessment: NSTEMI Uncontrolled primary hypertension Hypokalemia COVID-19 positivevaccinated with [facility] Plan: NSTEMI: Monitor on telemetry, trend troponins, obtain echocardiogram, cardiology consult continue with aspirin, beta-liane, ARB, statin therapy. Appreciate further input from cardiology, patient is n.p.o. also on full dose Lovenox. Uncontrolled primary hypertension: Patient reports taking metoprolol, spironolactone and amlodipine at home, unsure of doses have initiated therapy with metoprolol 50 mg p.o. twice daily, spironolactone 50 mg daily and amlodipine 10 mg p.o. daily. As needed hydralazine as well, may need to adjust doses once verified. Hypokalemia: Protocol in place, replaced in the emergency department. COVID-19 positivevaccinated with [facility] Pepito: Patient on room air at this time, afebrile. Will obtain CRP level and continue to monitor. DVT PPX: Full dose Lovenox Code status: Full code Discharge Plan: Home Plan to discharge in: 48 Hours - Advance Directives Does patient have a Living Will: No Does patient have a Durable POA for Healthcare: No - Code Status/Comfort Care Code Status Assessed: Yes (Full code) Critical Care: No Time Spent Managing Pts Care (In Minutes): 55 <Dave Amezquita - Last Filed: 10/13/21 00:38> - Plan Patient seen and examined on rounds this morning Denies any chest pain/pressure currently. Stable on room air. hasn't gotten out of bed Troponin increased to 0.15. On therapeutic Lovenox Covid positive Cardiology consulted Echocardiogram nuclear stress test ordered per cardiology recommendations <Jose G Durán - Last Filed: 10/13/21 12:54>
[2021-10-13] MEDS ORDERED: ACETAMINOPHEN 500 MG TAB PO PRN (02:11)
[2021-10-13] MEDS ORDERED: ONDANSETRON 4 MG/2 ML VIAL IV PRN (02:11)
[2021-10-13 03:01] VITALS: BMI 49.5
[2021-10-13 03:59] LABS: Absolute Lymphocytes (CBC) 0.9 K/uL (0.7-4.9); Basophils % 0.3 % (0-1.3); Hematocrit 40.1 % (39.6-49.0); Lymphocytes % 14.6 % (15.3-44.8); MPV 9.1 fL (7.6-11.3)
[2021-10-13 04:15] LABS: ALT/SGPT 65 U/L (12-78); AST/SGOT 37 U/L (15-37); Albumin 3.7 g/dL (3.4-5.0); Alkaline Phosphatase 41 U/L (45-117); BUN Blood Urea Nitrogen 11 mg/dL (7-18); Bicarbonate 30 mmol/L (21-32); Bilirubin Total 0.8 mg/dL (0.2-1.0); Glucose Level 93 mg/dL (74-106); HDL Cholesterol 34 mg/dL (40-60); LDL Cholesterol, Calculated 98 (<130); Magnesium 1.9 mg/dL (1.8-2.4); Potassium 3.2 mmol/L (3.5-5.1); Protein, Total 7.4 g/dL (6.4-8.2); Sodium Level 138 mmol/L (136-145); Troponin I 0.15 ng/mL (0.0-0.045)
[2021-10-13] MEDS: HYDRALAZINE HCL 20 MG/ML VIAL IV PRN ×3 (04:16→22:35)
[2021-10-13] MEDS ORDERED: POTASSIUM CL SA 10 MEQ TAB PO ONE ×2 (05:21→15:00)
--- NOTE | 2021-10-13 07:35 | EKG ---
Test Date: 2021-10-12 Test Time: 22:10:30 Java Consultant: SABIHA MEASUREMENT RESULTS: Intervals: Rate: 96 TN: 180 QRSD: 118 QT: 404 QTc: 510 [place]: P: 67 TN: 180 QRS: -40 T: 60 INTERPRETIVE STATEMENTS: Sinus rhythm with premature atrial complexes with aberrant conduction Possible Left atrial enlargement Left axis deviation Left ventricular hypertrophy with QRS widening and repolarization abnormality Prolonged QT Abnormal ECG Compared to ECG 02/26/2020 11:58:47 Aberrant conduction of supraventricular beat(s) now present Prolonged QT interval now present Electronically Signed On 10-13-21 07:34:14 BUILDING SUPERINTENDENT by Martinez Goyal
--- NOTE | 2021-10-13 08:29 | RAD REPORT ---
EXAM DESCRIPTION: Uriel Single View10/12/2021 11:36 pm CLINICAL HISTORY: Chest pain COMPARISON: 2019 FINDINGS: The lungs appear clear of acute infiltrate. The heart is mildly to moderately enlarged IMPRESSION: No acute abnormalities displayed
[2021-10-13] MEDS: BENZONATATE 100 MG CAP PO PRN ×2 (08:38→17:24)
[2021-10-13] MEDS: ASPIRIN EC 81 MG TAB PO SCH (08:38)
[2021-10-13] MEDS: SPIRONOLACTONE 25 MG TABLET PO SCH (08:38)
[2021-10-13] MEDS: AMLODIPINE 10 MG TAB PO SCH (08:39)
[2021-10-13 08:56] LABS: C-Reactive Protein 11.4 mg/L (<3.00); Ferritin 137.3 ng/mL (26-388)
[2021-10-13] MEDS ORDERED: METOPROLOL TAR 50 MG TAB PO SCH (09:00)
[2021-10-13 11:57] VITALS: O2SAT 100
--- NOTE | 2021-10-13 11:57 | CON ---
Date of Consultation: 10/13/2021 Reason For Consultation: Chest pain, shortness of breath. History Of Present Illness: A 30-year-old male with history of hypertension, brain aneurysm coiling, presented with chest pain and shortness of breath on exertion, started yesterday and shortness of br eath is worsening. Pain is substernal. No radiation. No relieving or exacerbating factors. Evalua tion by bedside, appears to be comfortable with a little shortness of breath and mild orthopnea. Past Medical History: Hypertension and brain aneurysm, status post coiling. Medications: Refer to reconciliation sheet for detailed list. Allergies: NO KNOWN DRUG ALLERGIES. Family History: Significant for coronary artery disease. Brother of heart attack at age 30. Social History: He is an ex-smoker. Does not drink or use any drugs. Review of Systems: All systems reviewed and they were negative except for what mentioned in HPI. Physical Examination: Vital Signs: Reviewed. Head and Neck: Pupils are equal, reactive to light. Intact eye movements. No JVD. No cervical lym phadenopathy. Neck: Supple. Thyroid is not enlarged. Lungs: Clear to auscultation bilaterally. No rhonchi, rales, or crackles. No accessory muscle use. Heart: Regular rate and rhythm. No extra sounds. Abdomen: Soft, nontender. Bowel sounds positive. No organomegaly. No masses or hernia. No rigidi ty or rebound. Extremities: No edema, clubbing, or cyanosis. Intact pulses. Skin: No rash. Neurologic: Alert, awake, oriented x3. No acute focal deficits appreciated. Investigations: White blood cell count is 5.9, hemoglobin is 13.5. Sodium 138, potassium 3.2, creat inine 0.15. NT-proBNP is 1114. Echos were normal ejection fraction. Assessment And Recommendations: 1.Hypertensive crisis with acute congestive heart failure symptoms due to uncontrolled malignant hyp ertension. Continue the current medications and replace metoprolol with Coreg start at 12.5 mg twice a day and adjust further as needed. Continue Norvasc and spironolactone and plan to add lisinopril. Titrate up as needed. 2.Borderline elevated troponin and diastolic heart failure exacerbation due to hypertensive emergenc y and there were reports about possibility of COVID being positive. Thus, the patient has confirmed COVID-19 and then at this point, I recommend blood pressure control, aspirin and anticoagulation and we will plan for a nuclear stress test to further evaluate for cardiac ischemia. If COVID is negativ e, then I would recommend to go directly to coronary angiogram. SR/MODL Voice ID: [id number] Report ID: [id number]
[2021-10-13] MEDS ORDERED: lisinopriL 10 MG TAB PO ONE (12:57)
[2021-10-13 13:30] LABS: Urine Appearance CLEAR (Clear); Urine Bilirubin NEGATIVE (Negative); Urine Blood NEGATIVE (Negative); Urine Color YELLOW (Yellow); Urine Glucose NEGATIVE (Negative); Urine Protein TRACE (Negative); Urine Specific Gravity 1.015 (1.005-1.030)
--- NOTE | 2021-10-13 13:40 | ECHO ---
HEIGHT: 6 ft 0 in WEIGHT: 365 lb 0 oz DATE OF STUDY: 10/13/[address]: Jose G Durán MD 2-DIMENSIONAL: YES M.MODE: YES DOPPLER: YES COLOR FLOW: YES TDS: PORTABLE: DEFINITY: BUBBLE STUDY: DIAGNOSIS: NON ST ELEVATION MYOCARDIAL INFARCTION, DYSPNEA ON EXERTION, ELEVATED BLOOD PRESSURE CARDIAC HISTORY: CATHERIZATION: NO SURGERY: NO PROSTHETIC VALVE: NO PACEMAKER: NO MEASUREMENTS (cm) DIASTOLIC (NORMALS) SYSTOLIC (NORMALS) IVSd 1.5 (0.6-1.2) LA Diam 3.3 (1.9-4.0) LVEF 58% LVIDd 7.1 (3.5-5.7) LVIDs 4.9 (2.0-3.5) %FS 31% LVPWd 1.6 (0.6-1.2) Ao Diam 3.5 (2.0-3.7) 2 DIMENSIONAL ASSESSMENT: RIGHT ATRIUM: LEFT ATRIUM: RIGHT VENTRICLE: LEFT VENTRICLE: TRICUSPID VALVE: MITRAL VALVE: PULMONIC VALVE: AORTIC VALVE: PERICARDIAL EFFUSION: AORTIC ROOT: LEFT VENTRICULAR WALL MOTION: DOPPLER/COLOR FLOW: COMMENTS: NORMAL 2-DIMENSIONAL ECHOCARDIOGRAM WITH DOPPLER. NO WALL MOTION ABNORMALITY. NO EFFUSION. TECHNOLOGIST: MARVIN DE LA CRUZ
[2021-10-13 13:48] LABS: Urine Microscopic Reflex ORDER UMIC
[2021-10-13 13:59] LABS: Urine Bacteria NONE SEEN /HPF (NONE SEEN); Urine RBC <5 /HPF (NONE SEEN)
--- NOTE | 2021-10-13 14:36 | RAD REPORT ---
EXAM DESCRIPTION: CT - Chest For Pe Angio - 10/13/2021 6:43 am CLINICAL HISTORY: 30 years, Male, CHEST PAIN COMPARISON: None TECHNIQUE: Multiple transaxial tomograms of the chest were obtained from the lung apices through the lung bases utilizing 2 mm slice thickness at 2 mm interval reconstruction after the administration o f large bolus of IV contrast for complete opacification of the pulmonary arteries. Subsequent 3-D maximum intensity projection images were generated in the coronal and sagittal plane f or review. This exam was performed according to our departmental dose-optimization protocol, which includes auto mated exposure control, adjustment of the mA and/or kV according to patient size and/or use of iterat huey reconstruction technique. FINDINGS: The lungs parenchyma demonstrate to be clear. No masses, nodules and/or consolidations are identified. The trachea mainstem bronchus demonstrate to be normal. There is no significant perica rdial or pleural effusions. The thoracic aorta demonstrate to be unremarkable. The heart is increased in size. No evidence for ri ght ventricular strain. There is very minimal coronary artery calcification. There is no significant mediastinal and/or hilar lymphadenopathy. The axillary regions demonstrate to be clear. Pulmonary arteries demonstrate to be within normal limits. There is suboptimal opacification of the p ulmonary arteries due to time of enhancement. No significant major intraluminal defect could be seen within the central pulmonary arteries. The bone windows demonstrate no significant skeletal lesions . The visualized portions of the upper abdomen demonstrate to be unremarkable. IMPRESSION: Suboptimal opacification of the pulmonary arteries due to time of enhancement. No signif icant major intraluminal defect could be seen within the central pulmonary arteries. Cardiomegaly. Electronically signed by: Osmin Coyle MD 10/13/2021 1:57 AM PAINTER ROUGH Due to temporary technical issues with the PACS/Fluency reporting system, reports are being signed by the in house radiologists without review as a courtesy to insure prompt reporting. The interpreting radiologist is fully responsible for the content of the report.
[2021-10-13] MEDS ORDERED: carvediloL 12.5 MG TAB PO SCH (18:00)
[2021-10-13] MEDS ORDERED: ATORVASTATIN 40 MG TAB PO SCH (21:00)
[2021-10-14 04:10] LABS: Absolute Lymphocytes (CBC) 1.3 K/uL (0.7-4.9); Basophils % 0.6 % (0-1.3); Hematocrit 41.2 % (39.6-49.0); Lymphocytes % 27.3 % (15.3-44.8); MPV 8.8 fL (7.6-11.3); RBC Red Blood Cell Count 5.08 M/uL (4.33-5.43)
[2021-10-14 04:24] LABS: ALT/SGPT 53 U/L (12-78); AST/SGOT 30 U/L (15-37); Albumin 3.5 g/dL (3.4-5.0); Alkaline Phosphatase 36 U/L (45-117); BUN Blood Urea Nitrogen 11 mg/dL (7-18); Bicarbonate 27 mmol/L (21-32); Bilirubin Total 0.8 mg/dL (0.2-1.0); Glucose Level 98 mg/dL (74-106); Magnesium 2.2 mg/dL (1.8-2.4); Sodium Level 137 mmol/L (136-145)
[2021-10-14 04:25] LABS: Potassium 2.9 mmol/L (3.5-5.1)
[2021-10-14] MEDS ORDERED: POTASSIUM CL SA 10 MEQ TAB PO ONE ×2 (04:50→07:30)
[2021-10-14] MEDS ORDERED: REGADENOSON 0.4 MG/5 ML SYR IV ONE ×2 (08:24→08:30)
[2021-10-14] MEDS ORDERED: carvediloL 12.5 MG TAB PO SCH (09:00)
[2021-10-14] MEDS ORDERED: lisinopriL 10 MG TAB PO SCH (09:00)
--- NOTE | 2021-10-14 09:31 | RAD REPORT ---
EXAM DESCRIPTION: NM - Rest Stress Cardiac Imaging - 10/14/2021 9:05 am CLINICAL HISTORY: nuclear stress per Dr. Torres Chest pain. COMPARISON: Chest For Pe Angio dated 10/13/2021 TECHNIQUE: The patient was administered approximately 10mCi of Tc 99m Sestamibi prior to resting SPE CT imaging of the heart. The patient was then administered approximately 30 mCi of Tc 99m Sestamibi f ollowing exercise or pharmacologic stress. Multiplanar SPECT images were reviewed. FINDINGS: There is an overall increased size of the left ventricular cavity. There is diminished rad iopharmaceutical accumulation seen particularly along the lateral wall with the rest and stress, sugg esting prior infarction. No definitive stress-induced ischemia defect. The end diastolic volume is 291 ml, the end systolic volume is 205 ml, and the ejection fraction is 2 9 %. IMPRESSION: Enlarged left ventricular cavity on rest and stress with mildly diminished EF. Diminished radiopharmaceutical accumulation involving the lateral wall on both rest and stress sugges ts prior infarction. No stress-induced ischemia defect seen.
[2021-10-14] MEDS: SPIRONOLACTONE 25 MG TABLET PO SCH (09:39)
[2021-10-14] MEDS: ASPIRIN EC 81 MG TAB PO SCH (09:40)
[2021-10-14] MEDS: AMLODIPINE 10 MG TAB PO SCH (09:41)
[2021-10-14 11:48] VITALS: BP 142/75; TEMP 98.1
--- NOTE | 2021-10-14 12:51 | P.DS ---
Admission Date: 10/13/21 Discharge Date: 10/14/21 Primary Care Provider: Dr. Montesinos Disposition: ROUTINE DISCHARGE Discharge Condition: GOOD Reason for Admission: NSTEMI Consultations: Cardiology - Dr. Torres Procedures: CXR (10/12): IMPRESSION: No acute abnormalities displayed CTA Chest (10/12): FINDINGS: The lungs parenchyma demonstrate to be clear. No masses, nodules and/or consolidations are identified. The trachea mainstem bronchus demonstrate to be normal. There is no significant pericardial or pleural effusions. The thoracic aorta demonstrate to be unremarkable. The heart is increased in size. No evidence for right ventricular strain. There is very minimal coronary artery calcification. There is no significant mediastinal and/or hilar lymphadenopathy. The axillary regions demonstrate to be clear. Pulmonary arteries demonstrate to be within normal limits. There is suboptimal opacification of the pulmonary arteries due to time of enhancement. No significant major intraluminal defect could be seen within the central pulmonary arteries. The bone windows demonstrate no significant skeletal lesions. The visualized portions of the upper abdomen demonstrate to be unremarkable. IMPRESSION: Suboptimal opacification of the pulmonary arteries due to time of enhancement. No significant major intraluminal defect could be seen within the central pulmonary arteries. Cardiomegaly. Echo (10/13): normal 2D echo w/ doppler no wall motionn abnormality. no effusion Stress Test (10/14): FINDINGS: There is an overall increased size of the left ventricular cavity. There is diminished radiopharmaceutical accumulation seen particularly along the lateral wall with the rest and stress, suggesting prior infarction. No definitive stress-induced ischemia defect. The end diastolic volume is 291 ml, the end systolic volume is 205 ml, and the ejection fraction is 29 %. IMPRESSION: Enlarged left ventricular cavity on rest and stress with mildly diminished EF. Diminished radiopharmaceutical accumulation involving the lateral wall on both rest and stress suggests prior infarction. No stress-induced ischemia defect seen. Problem List NSTEMI Uncontrolled primary hypertension Hypokalemia COVID-19 positivevaccinated with AMVONET Brief History of Present Illness: 30-year-old male with history of hypertension presents emergency department for dyspnea on exertion and chest pain. Patient reports that he is noted increasing shortness of breath with exertion over the course of last few months significantly worse this evening along with having some substernal nonradiating pressure-like chest pain that started yesterday. Patient was evaluated in the emergency department labs were significant for potassium 2.7 troponin 0.14 BNP 1114, EKG with frequent PACs/PVCs and occasional runs of SVT but no ST elevation. Patient given full dose Lovenox, aspirin, beta-liane in the ER and emergency department provider wishes to admit for further evaluation and management. Hospital Course: Patient's troponin was trended and remained stable at 0.16. Cardiology was consulted, echocardiogram was obtained and normal. Cardiac stress test was performed, which noted EF 29%, the fixed possible defect. These results were reviewed with cardiology who felt these were more artifact/not true results, given his normal EF on echocardiogram. Patient's blood pressure medications were changed/increased. He had much improved and stable blood pressure over the last 24 hours. He is discharged with new prescriptions for his blood pressure medications as he was taking in the hospital. Throughout his hospitalization, patient was breathing comfortably on room air, with oxygen saturations greater than 97% Follow-up with cardiology in the next few weeks Vital Signs/Physical Exam: Temp Pulse Resp BP Pulse Ox 98.1 F 82 16 142/75 H 100 10/14/21 11:46 10/14/21 11:46 10/14/21 11:46 10/14/21 11:46 10/14/21 11:46 General: Alert, In no apparent distress, Oriented x3 HEENT: Mucous membr. moist/pink, Sclerae nonicteric Neck: Supple, No LAD Respiratory: Clear to auscultation bilaterally Cardiovascular: No edema, Regular rate/rhythm, No murmurs Gastrointestinal: Soft and benign, Non-distended, No tenderness Musculoskeletal: No erythema, No tenderness Integumentary: No rashes, No significant lesion Neurological: Normal speech, Normal strength at 5/5 x4 extr, Normal affect Laboratory Data at Discharge: WBC 4.60 K/uL (4.3-10.9) D 10/14/21 03:00 Hgb 14.0 g/dL (13.6-17.9) 10/14/21 03:00 Hct 41.2 % (39.6-49.0) 10/14/21 03:00 Plt Count 232 K/uL (152-406) 10/14/21 03:00 PT 12.0 SECONDS (9.5-12.5) 10/12/21 22:45 INR 1.04 10/12/21 22:45 Sodium 137 mmol/L (136-145) 10/14/21 03:00 Potassium 2.9 mmol/L (3.5-5.1) L* 10/14/21 03:00 BUN 11 mg/dL (7-18) 10/14/21 03:00 Creatinine 0.86 mg/dL (0.55-1.3) 10/14/21 03:00 Glucose 98 mg/dL (74-106) 10/14/21 03:00 Magnesium 2.2 mg/dL (1.8-2.4) 10/14/21 03:00 Total Bilirubin 0.8 mg/dL (0.2-1.0) 10/14/21 03:00 AST 30 U/L (15-37) 10/14/21 03:00 ALT 53 U/L (12-78) 10/14/21 03:00 Alkaline Phosphatase 36 U/L (45-117) L 10/14/21 03:00 Troponin I 0.16 ng/mL (0.0-0.045) H 10/13/21 13:04 Triglycerides 114 mg/dL (<150) 10/13/21 03:32 Cholesterol 155 mg/dL (<200) 10/13/21 03:32 HDL Cholesterol 34 mg/dL (40-60) L 10/13/21 03:32 Cholesterol/HDL Ratio 4.56 10/13/21 03:32 Home Medications: Potassium Chloride 20 meq PO BID 10/13/21 Amlodipine [Norvasc*] 10 mg PO DAILY 30 Days #30 tab 10/14/21 Spironolactone [Aldactone] 50 mg PO DAILY 30 Days #30 tablet 10/14/21 carvediloL [Coreg*] 12.5 mg PO BID 30 Days #60 tab 10/14/21 lisinopriL [Prinivil*] 10 mg PO DAILY 30 Days #30 tab 10/14/21 New Medications: Spironolactone [Aldactone] 50 mg PO DAILY 30 Days #30 tablet carvediloL [Coreg*] 12.5 mg PO BID 30 Days #60 tab Amlodipine [Norvasc*] 10 mg PO DAILY 30 Days #30 tab lisinopriL [Prinivil*] 10 mg PO DAILY 30 Days #30 tab Physician Discharge Instructions: You were found to be positive for COVID-19 and had mildly elevated troponin levels (cardiac enzyme). You underwent echocardiogram and a stress test per Cardiology recommendations. There were no acute findings for a heart attack or coronary artery disease. You were also noted to have severe high blood pressure which is likely the cause of your troponin being mildly elevated. Your blood pressure medications were increased and lisinopril was added. Continue new prescriptions. Follow up with your PCP within 1-2 weeks Follow up with Dr. Torers (Cardiology) in a few weeks. Recommend quarantining for 7 more days Diet: AHA Activity: Ad marlyn Followup: Randy Bermudez PA [Primary Care Provider] - Khurram Torres MD [ACTIVE - CAN ADMIT] - Time spent managing pt's care (in minutes): 45
--- NOTE | 2021-10-15 11:35 | TREADMILL ---
70% H.R.: 132 85% H.R.: 161 90% H.R.: 170 100% H.R.: 189 DX: NON ST ELEVATION MYOCARDIAL INFARCTION Date of Study: 10/14/2021 Ht: 6' 0 " Wt: 365 lb 0 oz Consulting Physician: BARRY MEDICATIONS: NORVASC, LIPITOR, COREG, ASPIRIN, LOVENOX, LOPRESSOR HISTORY: HYPERTENSION, HIGH CHOLESTEROL PHYSICIAL EXAMINATION: RESTING B.P.: 116/89 RESTING H.R.: 129 RESTING EKG: NORMAL PROTOCOL: PHARMACOLOGIC EXERCISE TIME: 3:30 MAXIMUM HEART RATE: % OF PREDICTED B.P. AT PEAK STRESS: 110/73 H.R. AT 1 MINUTE POST EXERCISE: IMPRESSION: NO EKG CHANGES WITH LEXISCAN. TREADMILL STRESS TEST STARTED (HEART RATE 133). PATIENT DID NOT TOLERATE IT. LEXISCAN INJECTED. CARDIOLITE INJECTED (SEE NUCLEAR MEDICINE REPORT). NO CHEST PAIN. NO SUPRAVENTRICULAR TACHYCARDIA/ VENTRICULAR TACHYCARDIA. NO ARRHYTHMIAS. COMPAINTS OF SHORTNESS OF BREATH.
== END 2021-10-14 18:45 | disposition home or self-care (01) | DRG 177 ==
LOC: ER 21:56 → ERHOLD 10-13 00:26 → 4TH 10-13 01:35
PROVIDERS: ADMIT Hospitalist; ATTEND Hospitalist
DX: U07.1 COVID-19 (principal); I50.33 Acute on chronic diastolic (congestive) heart failure; I16.1 Hypertensive emergency; Z68.42 Body mass index [BMI] 45.0-49.9, adult; E66.9 Obesity, unspecified; I11.0 Hypertensive heart disease with heart failure; E87.6 Hypokalemia; F17.210 Nicotine dependence, cigarettes, uncomplicated; F17.220 Nicotine dependence, chewing tobacco, uncomplicated; Z79.899 Other long term (current) drug therapy
CPT/HCPCS: 0240U; 36415; 71045; 71275; 78452; 80048; 80053; 80061; 80076; 81003; 81015; 82728; 83735; 83880; 84132; 84439; 84443; 84484; 85025; 85379; 85610; 86140; 93005; 93017; 93306; 96372; 96374; 96375; 99285; A9500; J0360; J1650; J2785; J3480; J7050; Q9967

== ENCOUNTER 2022-07-06 23:28 | Emergency (ER) | payer OTHER, SELFPAY ==
[~2022-07-06 23:28] MED LIST: NA CHLORIDE 0.9% 1,000 ML ONE; RSI MEDICATION KIT IV ONE; propofoL 1,000 MG/100 ML VIAL IV ONE
[2022-07-06] MEDS ORDERED: ETOMIDATE 20 MG/10 ML VIAL IV ONE (23:29)
[2022-07-06] MEDS ORDERED: ROCURONIUM 50 MG/5 ML VIAL IV ONE (23:29)
[2022-07-06] MEDS ORDERED: EPINEPHrine 1 MG/10 ML SYR IV ONE (23:29)
[2022-07-06] MEDS ORDERED: SUCCINYLCHOLINE 20 MG/ML (10 ML) IV ONE (23:29)
--- OUTSIDE RECORDS SUMMARY | 2022-07-06 23:31 | XMS REPORT | Continuity of Care Document ---
:1990 Author Organization [facility] t Address [address] [place] [address] Care Team Providers Name Role Phone MARIXA CASTILLO Primary Care Physician Unavailable JAMIA CHI Attending Clinician Unavailable Jamia Chi MD Attending Clinician Problems Condition Condition Condition Status Onset Resolution Last Treating Co mments Source Name Details Category Date Date Treatment Clinician Date NSTEMI NSTEMI Disease Active Univers (non-ST (non-ST 3-18 ity of elevated elevated 00:00: [place] myocardial myocardial 00 Me dical infarction infarction Br anch ) ) Morbid Morbid Disease Active Univers obesity obesity 3-18 [place] of with body [place] mass index mass index 00 [place] dical of 50 or of 50 or Branch higher higher Allergies, Adverse Reactions, Alerts Allergy Allergy Status Severity Reaction(s) Onset Inactive Treating Comm ents Source Name Type Date Date Clinician NO KNOWN Drug Active Univers ALLERGIE Class ity of S [place] [facility] Social History Social Habit Start Date Stop Date Quantity Comments Source History of tobacco Snuff User Univer sity of use [place] [facility] History SDOH University o f Alcohol Frequency [place] edical Branch History SDNV University o f Alcohol Std Drinks [place] [facility] History SDNV University o f Alcohol Binge [place] [facility] Exposure to 2022-02-19 2022-03-01 Not sure University SARS-CoV-2 (event) 00:00:00 14:15:00 [facility] Alcohol intake 2022-03-01 2022-03-01 Current drinker Unive rsity of 00:00:00 00:00:00 of alcohol [facility] (finding) Branch Alcohol Comment 2022-01-08 2022-01-08 socially. Drink Univ ersity of 00:00:00 00:00:00 2-3 mixed drinks [place] Ma dical once a month. Branch Education 2022-01-08 2022-01-08 12 University of 00:00:00 00:00:00 [facility] Tobacco Comment 2022-01-08 2022-01-08 used about 17 Univer sity of 00:00:00 00:00:00 years [facility] Cigarettes smoked 2018-07-10 2018-07-10 Univers ity of current (pack per 00:00:00 00:00:00 [facility] ) - Reported Branch Cigarette 2018-07-10 2018-07-10 University of pack-years 00:00:00 00:00:00 [facility] Tobacco use and 2018-07-10 2018-07-10 Current user Univers ity of exposure 00:00:00 00:00:00 [facility] Sex Assigned At [birth year] Universit y of 00:00:00 00:00:00 [facility] Smoking Status Start Date Stop Date Source Former smoker 2018-07-10 00:00:00 2018-07-10 00:00:00 Universi ty of [facility] Medications Ordered Filled Start Stop Current Ordering Indication Dosage Frequency Signature Comments Components Source Medication Medication Date Date Medication? Clinician (SIG) Name Name amLODIPine 2021- No 10mg Take 10 mg Univers 10 mg 03-01 by mouth ity of tablet 14:51: 00:00 daily. [place] 58 :00 [facility] spironolact Yes 50mg Take 50 mg Univers one 03-01 by mouth ity of (ALDACTONE) 14:28[place]. [place] 50 mg 54 Medical tablet Branch carvediloL Yes [id number] 25mg Take 1 U nivers 25 mg 5-09 tablet by ity of tablet 00:00: mouth 2 [place] 00 (two) Medical times Branch daily with meals. amLODIPine Yes [id number] 10mg Take 1 U nivers 10 mg 5-09 tablet by ity of tablet 00:00: mouth [place] 00 daily. Medical Branch lisinopriL Yes [id number] 40mg Take 1 U nivers 40 mg 5-09 tablet by ity of tablet 00:00: mouth [place] 00 daily. Medical Branch aspirin 81 Yes [id number] 81mg Take 1 U nivers mg chewable 3-23 tablet by ity of tablet 00:00: mouth [place] 00 daily. Medical Branch lisinopriL 2021- No [id number] 40mg Take 1 Univers 40 mg 3-23 05-09 tablet by ity of tablet 00:00: 00:00 mouth [place] 00 :00 daily. Medical Branch KCL 20 mEq Yes [id number] 40meq Take 2 Univers tablet 3-22 tablets by ity of 00:00: mouth 2 [place] 00 (two) Medical times Branch daily. furosemide Yes [id number] 80mg Take 1 U nivers 80 mg 3-22 tablet by ity of tablet 00:00: mouth [place] 00 every Medical morning Branch and evening. carvediloL 2021- No [id number] 25mg Take 1 Univers 25 mg 3-22 05-09 tablet by ity of tablet 00:00: 00:00 mouth 2 [place] 00 :00 (two) Medical times Branch daily with meals. atorvastati 2021- No [id number] 40mg Take 1 Univers n 40 mg 3-22 05-09 tablet by ity of tablet 00:00: 00:00 mouth at [place] 00 :00 bedtime. Medical Branch Immunizations Ordered Filled Immunization Date Status Comments [facility] e Immunization Name Name Pneumococcal 2022-01-12 Completed [place] o f Polysaccharide, 00:00:00 [place] Med ical PPSV23 (PNEUMOVAX) Branch Vital Signs Vital Name Observation Time Observation Value Comments Source Systolic blood 2022-03-01 19:37:00 164 mm[Hg] Univer sity of pressure [facility] Diastolic blood 2022-03-01 19:37:00 105 mm[Hg] Unive rsity of pressure [facility] Heart rate 2022-03-01 19:37:00 75 /min [facility] Respiratory rate 2022-03-01 19:25:00 22 /min [facility] Body height 2022-03-01 19:25:00 182.9 cm [facility] Body weight 2022-03-01 19:25:00 190.42 kg [facility] BMI 2022-03-01 19:25:00 56.94 kg/m2 [facility] Oxygen saturation in 2022-03-01 19:25:00 95 /min [facility] Arterial blood by [facility] [place] Pulse oximetry Branch Procedures This patient has no known procedures. Encounters Start End Encounter Admission Attending Care Care Encounter Source Date/Time Date/Time Type Type Clinicians Facility Department ID 2022-03-15 2022-03-15 Outpatient R [facility] [id number] Univers 16:30:00 [facility]-04 2022-03-04 Outpatient R ALON [facility] [id number] Univers 08:15:00 08:15:00 JAMIA [id number] ity o f [facility] 2022-03-01 2022-03-01 [facility] [id number] Univers 14:20:00 15:01:31 Visit Jamia THOMAS [id number] [facility] [id number] Renee white PROFESSIO [id number] Ma dical NAL 059 Branch BUILDING Results This patient has no known results.
[2022-07-06] MEDS ORDERED: FUROSEMIDE 100 MG/10 ML VIAL IV ONE (23:50)
[2022-07-06] MEDS ORDERED: NITROGLYCERIN 1 GM PKT TD ONE (23:54)
[2022-07-07] MEDS ORDERED: NITROGLYCERIN/D5W 50 MG/250 ML BTL IV ONE (00:14)
[2022-07-07 00:15] LABS: Protime INR 1.14
[2022-07-07 00:20] LABS: Hematocrit 46.7 % (39.6-49.0); Lymphocytes % 36.8 % (15.3-44.8); MCV 81.4 fL (80-100); MPV 9.1 fL (7.6-11.3); RBC Red Blood Cell Count 5.74 M/uL (4.33-5.43)
[2022-07-07 00:59] LABS: Arterial Blood Carboxyhemoglob 0.8 % (0-1.5); Blood Gas Oxyhemoglobin 87.7 % (94-97); Blood O2 Saturation 89.4 % (92-98.5)
[2022-07-07 01:12] LABS: Potassium 2.6 mmol/L (3.5-5.1); Troponin High Sensitivity 464.4 pg/mL (<58.9)
[2022-07-07] MEDS ORDERED: ACETAMINOPHEN 650MG/RECT SUPP PR ONE (01:21)
[2022-07-07] MEDS ORDERED: KCL 20 MEQ/100 mL IVPB 100 ML IV ONE (01:27)
[2022-07-07] MEDS ORDERED: MIDAZOLAM HCL 2 MG/2 ML INJ ONE ×3 (01:38→02:34)
[2022-07-07 02:04] LABS: SARS-CoV-2 Antigen Rapid Res Negative (Negative)
[2022-07-07] MEDS ORDERED: FENTANYL CITR 100 MCG/2 ML ONE (03:12)
[2022-07-07] MEDS ORDERED: propofoL 1,000 MG/100 ML VIAL IV ONE ×2 (03:18→06:12)
--- NOTE | 2022-07-07 03:41 | EDPHYS ---
Physician Documentation [facility] Name: Jameel Patel Age: 31 yrs Sex: Male : 1990 Arrival Date: 07/06/2022 Time: 23:33 Bed 4 Private MD: ED Physician Mehdi Fernandez HPI: 07/07 03:44 This 31 yrs old Male presents to ER via EMS with complaints of Altered mental status kdr shortness of breath. 03:44 Patient was seen here for an NSTEMI approximately a year ago. Subsequently he followed kdr up with the physicians at [facility]. He had an echo which showed diminished cardiac function and was diagnosed with congestive heart failure. He may have been put on Lasix for period of time and then about 2 months ago was taken off the Lasix. Today he apparently was involved in some exertional activity and became acutely short of breath and collapsed. EMS brought the patient to the ED with nasal trumpet in place and bagging the patient.. Onset: The symptoms/episode began/occurred suddenly, today. Severity of symptoms: At their worst the symptoms were incapacitating in the emergency department the symptoms are unchanged. The patient has not experienced similar symptoms in the past. The patient has not recently seen a physician. Historical: - Allergies: 00:12 Unable to obtain; aa9 - Home Meds: 00:12 Unable to obtain [Active]; aa9 - PMHx: 00:12 Hypertension; aa9 - PSHx: 00:12 Unable to Obtain; aa9 - Social history:: Smoking status: unknown. ROS: 03:44 Constitutional: Unable to assess due to the patient's altered mental status and there kdr is no family present Eyes: Negative for injury, pain, redness, and discharge. 03:44 Unable to obtain ROS due to altered mental status, obtunded state. Exam: 03:44 Constitutional: This is a well developed, well nourished patient who is obtunded with kdr a nasal trumpet in place and being bagged by EMS and respiratory therapy Head/Face: Normocephalic, atraumatic. Eyes: Pupils equal round and reactive to light, extra-ocular motions intact. Lids and lashes normal. Conjunctiva and sclera are non-icteric and not injected. Cornea within normal limits. Periorbital areas with no swelling, redness, or edema. Neck: Trachea midline, no thyromegaly or masses palpated, and no cervical lymphadenopathy. Supple, full range of motion without nuchal rigidity, or vertebral point tenderness. No Meningismus. Chest/axilla: Normal chest wall appearance and motion. Nontender with no deformity. No lesions are appreciated. Cardiovascular: Regular rate and rhythm with a normal S1 and S2. No gallops, murmurs, or rubs. Normal PMI, no JVD. No pulse deficits. 03:44 Respiratory: severe repiratory distress is noted, Respirations: labored breathing, that is severe, Breath sounds: rales, that are mild. Vital Signs: 07/06 23:24 BP 162 / 129; Pulse 109; as6 23:30 BP 169 / 129; Pulse 109; Resp 26; Pulse Ox 97% on ETT ambu; aa 23:30 BP 203 / 174; Pulse 131; Resp 26; Pulse Ox 74% on 15% BVM; as6 23:35 BP 178 / 132; Pulse 59; Resp 13; Pulse Ox 62% on 15% BVM; as6 23:49 BP 228 / 169; Pulse 123; Resp 17; Pulse Ox 89% on 15% BVM; as6 23:52 BP 258 / 190; Pulse 124; Resp 25 A; Pulse Ox 81% on 100% FiO2 ETT vent; as6 07/07 00:00 BP 263 / 233; Pulse 122; Temp 100.3(C); Pulse Ox 91% on 100% FiO2 ETT vent; as6 00:09 BP 175 / 129; Pulse 111; Resp 19 A; Temp 100.3(C); Pulse Ox 91% on 100% FiO2 ETT vent; as6 00:30 BP 169 / 120; Pulse 145; Resp 22 A; Temp 100.2(C); Pulse Ox 83% on 100% FiO2 ETT vent; as6 00:44 BP 149 / 124; Pulse 138; Resp 43 A; Temp 100.2(C); Pulse Ox 87% on 100% FiO2 ETT vent; as6 00:51 BP 147 / 109; Pulse 95; Resp 19 A; Temp 100.1(C); Pulse Ox 92% on 100% FiO2 ETT vent; 00:53 Weight 181.44 kg; as6 01:02 BP 127 / 82; Pulse 90; Resp 25 A; Temp 100.1(C); Pulse Ox 94% on 100% FiO2 ETT vent; as6 01:08 BP 82 / 59; Pulse 93; Resp 25 A; Temp 100.1(C); Pulse Ox 88% on 100% FiO2 ETT vent; as6 01:20 BP 85 / 51; Pulse 87; Resp 22 A; Temp 100.0(C); Pulse Ox 97% on 100% FiO2 ETT vent; as6 01:34 BP 97 / 33; Pulse 88; Resp 25 A; Temp 99.8(C); Pulse Ox 100% on 100% FiO2 ETT vent; as6 01:43 BP 109 / 54; Pulse 93; Resp 19 A; Temp 99.7(C); Pulse Ox 88% on 100% FiO2 ETT vent; as6 01:54 BP 154 / 75; Pulse 87; Temp 99.2(C); Pulse Ox 96% on 100% FiO2 ETT vent; as6 02:00 BP 162 / 63; Pulse 87; Resp 14 A; Temp 99.2(C); Pulse Ox 96% on 100% FiO2 ETT vent; as6 02:10 BP 196 / 112; Pulse 98; Resp 30 A; Temp 99.6(C); Pulse Ox 93% on 100% FiO2 ETT vent; as6 02:17 BP 197 / 175; Pulse 94; Temp 100.0(C); Pulse Ox 88% on 100% FiO2 ETT vent; as6 02:46 BP 124 / 114; Pulse 133; Resp 37 A; Temp 101.9(C); Pulse Ox 72% on 100% FiO2 ETT vent; as6 02:50 BP 88 / 56; Pulse 135; Resp 16 A; Temp 102.1(C); Pulse Ox 69% on 100% FiO2 ETT vent; as6 02:55 BP 118 / 84; Pulse 123; Resp 50 A; Temp 102.1(C); Pulse Ox 74% on 100% FiO2 ETT vent; as6 03:00 BP 139 / 97; Pulse 125; Resp 27 A; Temp 102.2(C); Pulse Ox 76% on 100% FiO2 ETT vent; as6 03:06 BP 139 / 97; Pulse 110; Resp 25 A; Temp 100.2(C); Pulse Ox 82% on 100% FiO2 ETT vent; as6 03:12 BP 106 / 69; Pulse 99; Resp 16 A; Temp 102.2(C); Pulse Ox 92% on 100% FiO2 ETT vent; as6 03:16 BP 83 / 40; Pulse 96; Resp 25 A; Temp 102.2(C); Pulse Ox 90% on 100% FiO2 ETT vent; as6 03:20 BP 86 / 48; Pulse 93; Resp 25 A; Temp 102.2(C); Pulse Ox 91% on 100% FiO2 ETT vent; as6 03:25 BP 87 / 53; Pulse 91; Resp 25 A; Temp 102.2(C); Pulse Ox 93% on 100% FiO2 ETT vent; as6 03:30 BP 64 / 24; Pulse 91; Resp 24 A; Temp 102.2(C); Pulse Ox 94% on 100% FiO2 ETT vent; as6 03:35 BP 76 / 57; Pulse 90; Resp 25 A; Temp 102.2(C); Pulse Ox 94% on 100% FiO2 ETT vent; as6 03:45 BP 79 / 24; Pulse 93; Resp 22 A; Temp 102.2(C); Pulse Ox 92% on 100% FiO2 ETT vent; as6 03:55 BP 116 / 78; Pulse 98; Resp 27 A; Temp 102.2(C); Pulse Ox 85% on 100% FiO2 ETT vent; as6 04:10 BP 105 / 91; Pulse 92; Resp 25 A; Temp 101.8(C); Pulse Ox 95% on 100% FiO2 ETT vent; as6 04:30 BP 139 / 96; Pulse 90; Resp 24 A; Temp 101.7(C); Pulse Ox 98% on 100% FiO2 ETT vent; as6 04:45 BP 115 / 69; Pulse 89; Resp 25 A; Temp 100.6(C); Pulse Ox 99% on 100% FiO2 ETT vent; as6 05:00 BP 154 / 126; Pulse 84; Resp 16 S; Temp 100.8(C); Pulse Ox 26% on R/A; as6 05:12 BP 97 / 50; Pulse 114; Resp 25; Pulse Ox 80% ; as6 05:31 BP 112 / 68; Pulse 100; Pulse Ox 98% on 100% FiO2 ETT vent; as6 05:50 BP 106 / 55; Pulse 116; Pulse Ox 100% on 100% FiO2 ETT vent; as6 Procedures: 03:48 Intubation: Ventilated with 100% NRB prior to procedure. O2 saturation prior to kdr procedure was 90 %. Intubated orally using Dawson scope with 7.5 mm ETT. Successful on third attempt. Ventilated with Ambu bag. ventilator. Tube secured with ETT friedman Placement verified by CXR, CO2 detector with (+) color change, auscultating bilateral breath sounds, O2 saturation after procedure was 85 %. Patient tolerated well. 03:48 Central Line: the site was prepped with Betadine, in sterile fashion, a triple lumen kdr catheter was inserted, in the right femoral vein, in 1 attempts. placement was verified, by blood return, the site was dressed with using sterile technique, the patient tolerated the procedure, well. MDM: 03:40 Patient medically screened. kdr 03:48 Data reviewed: vital signs, nurses notes, lab test result(s), radiologic studies. kdr Counseling: I had a detailed discussion with the patient and/or guardian regarding: the historical points, exam findings, and any diagnostic results supporting the discharge/admit diagnosis, lab results, radiology results, the need to transfer to another facility. 03:48 ED course: The patient was intubated on the third attempt on arrival. Patient had kdr copious emesis in the oral airway. This made visualization of the vallecula and the cords initially difficult. He had waves of emesis requiring suction that only transiently cleared the fluid from the airway. His saturations did dip into the 20s for a minute or 2. He was able to be bagged back up to 60% to 80% in between attempts. Once the tube was passed, it remained in place. Proper placement was confirmed by auscultation and chest x-ray. In addition the CO2 detector immediately change color indicating appropriate placement. Due to the patient's pulmonary edema and hypertension patient was given Nitropaste and started on an IV nitroglycerin drip. The patient responded well to this and his blood pressure is normalized. Eventually, his pressure started to diminish. Given this new trend, a central line was placed in the right groin. It was passed on the first attempt. Patient tolerated well.. 07/06 23:50 Order name: Basic Metabolic Panel; Complete Time: 01:13 kdr 07/06 23:50 Order name: CBC with Diff; Complete Time: 00:49 kdr 07/06 23:50 Order name: D-Dimer; Complete Time: 00:49 kdr 07/06 23:50 Order name: NT PRO-BNP; Complete Time: 01:13 kdr 07/06 23:50 Order name: PT-INR; Complete Time: 00:49 kdr 07/06 23:50 Order name: Troponin HS; Complete Time: 01:13 kdr 07/06 23:50 Order name: XRAY Chest (1 view) [facility] 07/07 01:01 Order name: ABG Arterial Blood Gas; Complete Time: 01:04 EDLA 07/07 01:21 Order name: SARS RAPID; Complete Time: 03:53 as 07/07 02:04 Order name: Blood Culture Adult (2) la1 07/07 02:04 Order name: Lactate la1 07/07 03:07 Order name: Chest Single View XRAY as 07/07 04:20 Order name: ABG Arterial Blood Gas EDLA 07/07 05:11 Order name: Chest Single View XRAY as 07/06 23:50 Order name: EKG; Complete Time: 23:51 kdr 07/06 23:50 Order name: Cardiac monitoring; Complete Time: 23:58 [facility] 07/06 23:50 Order name: EKG - Nurse/Tech; Complete Time: 23:58 [facility] 07/06 23:50 Order name: IV Saline Lock; Complete Time: 23:58 kdr 07/06 23:50 Order name: Labs collected and sent; Complete Time: 23:58 [facility] 07/06 23:50 Order name: O2 Per Protocol; Complete Time: 23:58 kdr 07/06 23:50 Order name: O2 Sat Monitoring; Complete Time: 23:58 kdr 07/06 23:51 Order name: Mayer; Complete Time: 23:58 [facility] 07/07 07:05 Order name: EKG Electrocardiogram EDLA 07/07 07:05 Order name: EKG Electrocardiogram EDLA Administered Medications: 07/06 23:34 Drug: Etomidate 20 mg Route: IVP; Site: right hand; as6 07/07 06:55 Follow up: Response: No adverse reaction as07/06 23:34 Drug: Rocuronium 50 mg Route: IVP; Site: right hand; as07/07 07:00 Follow up: Response: No adverse reaction 07/06 23:42 Drug: Lasix (furosemide) 100 mg Route: IVP; Site: right hand; 07/07 06:54 Follow up: Response: No adverse reaction 07/06 23:45 Drug: Nitro-Bid (nitroglycerin) Ointment 2 % 2 inches Route: Transdermal; Site: as anterior chest wall; 07/07 01:08 Follow up: Response: Blood pressure is lowered as6 06:54 Follow up: Response: No adverse reaction 07/06 23:50 Drug: Propofol 5 mcg/kg/min {Note: starting rate 20. RASS +2.} Route: IV; Rate: as6 calculated rate; Site: right hand; 07/07 00:20 Follow up: Response: RASS: Restless (+1); Rate change 20 mcg/kg/min as6 00:30 Follow up: Response: RASS: Restless (+1); Rate change 30 mcg/kg/min as6 00:40 Follow up: Response: RASS: Restless (+1); Rate change 40 mcg/kg/min as6 00:50 Follow up: Response: RASS: Restless (+1); Rate change 50 mcg/kg/min as6 02:30 Follow up: Response: No adverse reaction; Blood pressure is lowered; IV Status: IV as6 converted to saline lock 03:30 Follow up: Response: RASS: Agitated (+2); Rate change 20 mcg/kg/min as6 07:06 Follow up: IV Status: Infusion continued upon transfer as6 00:29 Drug: Nitro Drip 5 mcg/min - (Nitroglycerin 50 mg, D5W 250 ml) Route: IV; Rate: 5 as6 mcg/min; Site: left hand; 00:35 Follow up: Response: No adverse reaction; Blood pressure is lowered; IV Status: Order as6 to discontinue infusion 01:23 Drug: Potassium Chloride 20 mEq Route: IV; Rate: calculated rate; Site: left hand; as6 03:30 Follow up: Response: No adverse reaction; IV Status: Completed infusion; IV Intake: as6 100ml 01:25 Drug: Tylenol Suppository 650 mg Route: IA; as6 07:08 Follow up: Response: No adverse reaction as6 01:29 Drug: NS 0.9% 500 ml Route: IV; Rate: bolus; Site: right hand; as6 07:11 Follow up: Response: No adverse reaction; IV Status: Completed infusion; IV Intake: as6 500ml 01:31 Drug: Midazolam 2 mg Route: IVP; Site: right hand; as6 07:11 Follow up: Response: RASS: Drowsy (-1) as6 01:50 Drug: Midazolam 2 mg Route: IVP; Site: right hand; as6 07:11 Follow up: Response: No adverse reaction as6 02:40 Drug: Midazolam 2 mg Route: IVP; Site: right hand; as6 07:09 Follow up: Response: No adverse reaction; RASS: Drowsy (-1) as6 02:55 Drug: fentaNYL (PF) 50 mcg Route: IVP; Site: left hand; as6 07:09 Follow up: Response: No adverse reaction as6 03:00 Drug: Succinylcholine 100 mg Route: IVP; Site: left hand; as6 07:08 Follow up: Response: No adverse reaction as6 03:48 Drug: Levophed (norepinephrine) 0.1 mcg/kg/min Route: IV; Rate: calculated rate; Site: as6 right femoral; 07:06 Follow up: IV Status: Infusion continued upon transfer as6 03:54 Drug: Zosyn (piperacillin-tazobactam) 3.375 grams Route: IVPB; Infused Over: 60 mins; as6 Site: right femoral; 07:10 Follow up: Response: No adverse reaction as6 07:10 Follow up: Response: No adverse reaction as6 05:10 Drug: Succinylcholine 100 mg Route: IVP; Site: right femoral; as6 07:15 Follow up: Response: No adverse reaction as6 05:10 Drug: Rocuronium 50 mg Route: IVP; Site: right femoral; as6 07:15 Follow up: Response: No adverse reaction as6 06:30 Drug: Rocuronium 50 mg Route: IVP; Site: right femoral; as6 07:15 Follow up: Response: No adverse reaction as6 06:53 Not Given (pt transfered before able to get med from ICU): Aspirin Suppository 300 mg as6 IA once Disposition Summary: 07/07/22 03:40 Transfer Ordered Transfer Location: [facility] kdr Reason: Higher level of care kdr Condition: Critical kdr Problem: new kdr Symptoms: have improved kdr Accepting Physician: [facility](07/07/22 07:07) tw2 Diagnosis - Hypertensive crisis, unspecified kdr - Acute pulmonary edema kdr - Heart failure, unspecified kdr - Subsequent non-ST elevation (NSTEMI) myocardial infarction kdr Forms: - Medication Reconciliation Form kdr - SBAR form kdr Critical care time excluding procedures: 03:48 Critical care time: Bedside Care: 60 minutes, Consultation: 15 minutes, Family kdr Intervention: 10 minutes. Total time: 85 minutes Signatures: Dispatcher [employer] EDJuliet Torres RN Mehdi Paulino MD MD kdr Dave Amezquita, SYSTEM VALIDATION ENGINEER-C SYSTEM VALIDATION ENGINEER-Cla1 Sandy Hi RN RN tw2 Sukumar Martinez RN RN as6 Shelly Wheeler RN RN aa9 Corrections: (The following items were deleted from the chart) 04:06 03:40 [facility] kdr kdr 07:07 04:06 [facility] kdr tw2
--- NOTE | 2022-07-07 03:41 | ER ---
Nurse's Notes [facility] Name: Jameel Patel Age: 31 yrs Sex: Male : 1990 Arrival Date: 07/06/2022 Time: 23:33 Bed 4 Private MD: Diagnosis: Hypertensive crisis, unspecified;Acute pulmonary edema;Heart failure, unspecified;Subsequent non-ST elevation (NSTEMI) myocardial infarction Presentation: 07/06 23:30 Initial Sepsis Screen: Does the patient meet any 2 criteria? Altered Mental Status. No. aa9 Patient's initial sepsis screen is negative. Does the patient have a suspected source of infection? No. Patient's initial sepsis screen is negative. Risk Assessment: Do you want to hurt yourself or someone else? Unable to obtain. Onset of symptoms is unknown. 23:59 Acuity: PAT 1 as6 07/07 00:00 Chief complaint: EMS states: called out for SOB, on arrival to ER pt was being bagged, aa9 nasal [address]. Coronavirus screen:. 00:00 Method Of Arrival: EMS: [facility] aa9 00:32 Ebola Screen: No symptoms or risks identified at this time. as6 Triage Assessment: 07/06 23:00 General: Appears distressed, obese, Behavior is unresponsive. Pain: Unable to use pain aa9 scale. Patient is unresponsive. Respiratory: Airway via nasal trumpet Trachea midline Respiratory effort is gasping. Historical: - Allergies: 07/07 00:12 Unable to obtain; aa9 - Home Meds: 00:12 Unable to obtain [Active]; aa9 - PMHx: 00:12 Hypertension; aa9 - PSHx: 00:12 Unable to Obtain; aa9 - Social history:: Smoking status: unknown. Screenin:33 Abuse screen: Denies threats or abuse. Denies injuries from another. Nutritional as6 screening: No deficits noted. Tuberculosis screening: No symptoms or risk factors identified. Fall Risk None identified. Assessment: 07/06 23:30 General: Appears distressed. General: Behavior is agitated. Pain: Denies pain. as6 Respiratory: Respiratory effort is labored, Respiratory pattern is agonal. Derm: Skin is diaphoretic. 23:50 Neuro: Ring Agitation-Sedation Scale (RASS): +2 Agitated. as6 07/07 00:51 Respiratory: Ventilator assessment: ET Tube: 7.5 at lip. Ventilator Mode: Assist as6 Control (AC) Respiratory Rate: 24 FiO2: 100%. PEEP: 15 HOB > 30 degrees. 01:35 General: at bedside. [place] [phone]. as 01:41 General: pt dx with CHF in December, . as 07:16 General:. as6 07:17 General: 0230 RASS +2, pt agitated, restless 0500 pt restless, combative, RASS +4, pt as6 pulled out ETT, OG tube, Dr. Fernandez re intubated pt with 7.5 tube, 25 at the lip, positive color change, osiel breath sounds, 16 fr OG tube reinserted . Vital Signs: 07/06 23:24 BP 162 / 129; Pulse 109; as6 23:30 BP 169 / 129; Pulse 109; Resp 26; Pulse Ox 97% on ETT ambu; aa9 23:30 BP 203 / 174; Pulse 131; Resp 26; Pulse Ox 74% on 15% BVM; as6 23:35 BP 178 / 132; Pulse 59; Resp 13; Pulse Ox 62% on 15% BVM; as6 23:49 BP 228 / 169; Pulse 123; Resp 17; Pulse Ox 89% on 15% BVM; as6 23:52 BP 258 / 190; Pulse 124; Resp 25 A; Pulse Ox 81% on 100% FiO2 ETT vent; 07/07 00:00 BP 263 / 233; Pulse 122; Temp 100.3(C); Pulse Ox 91% on 100% FiO2 ETT vent; 00:09 BP 175 / 129; Pulse 111; Resp 19 A; Temp 100.3(C); Pulse Ox 91% on 100% FiO2 ETT vent; as 00:30 BP 169 / 120; Pulse 145; Resp 22 A; Temp 100.2(C); Pulse Ox 83% on 100% FiO2 ETT vent; as 00:44 BP 149 / 124; Pulse 138; Resp 43 A; Temp 100.2(C); Pulse Ox 87% on 100% FiO2 ETT vent; 00:51 BP 147 / 109; Pulse 95; Resp 19 A; Temp 100.1(C); Pulse Ox 92% on 100% FiO2 ETT vent; as6 00:53 Weight 181.44 kg; as6 01:02 BP 127 / 82; Pulse 90; Resp 25 A; Temp 100.1(C); Pulse Ox 94% on 100% FiO2 ETT vent; as6 01:08 BP 82 / 59; Pulse 93; Resp 25 A; Temp 100.1(C); Pulse Ox 88% on 100% FiO2 ETT vent; as6 01:20 BP 85 / 51; Pulse 87; Resp 22 A; Temp 100.0(C); Pulse Ox 97% on 100% FiO2 ETT vent; as6 01:34 BP 97 / 33; Pulse 88; Resp 25 A; Temp 99.8(C); Pulse Ox 100% on 100% FiO2 ETT vent; :43 BP 109 / 54; Pulse 93; Resp 19 A; Temp 99.7(C); Pulse Ox 88% on 100% FiO2 ETT vent; :54 BP 154 / 75; Pulse 87; Temp 99.2(C); Pulse Ox 96% on 100% FiO2 ETT vent; 6 02:00 BP 162 / 63; Pulse 87; Resp 14 A; Temp 99.2(C); Pulse Ox 96% on 100% FiO2 ETT vent; 6 02:10 BP 196 / 112; Pulse 98; Resp 30 A; Temp 99.6(C); Pulse Ox 93% on 100% FiO2 ETT vent; 02:17 BP 197 / 175; Pulse 94; Temp 100.0(C); Pulse Ox 88% on 100% FiO2 ETT vent; 6 02:46 BP 124 / 114; Pulse 133; Resp 37 A; Temp 101.9(C); Pulse Ox 72% on 100% FiO2 ETT vent; as6 02:50 BP 88 / 56; Pulse 135; Resp 16 A; Temp 102.1(C); Pulse Ox 69% on 100% FiO2 ETT vent; as6 02:55 BP 118 / 84; Pulse 123; Resp 50 A; Temp 102.1(C); Pulse Ox 74% on 100% FiO2 ETT vent; 6 03:00 BP 139 / 97; Pulse 125; Resp 27 A; Temp 102.2(C); Pulse Ox 76% on 100% FiO2 ETT vent; as6 03:06 BP 139 / 97; Pulse 110; Resp 25 A; Temp 100.2(C); Pulse Ox 82% on 100% FiO2 ETT vent; as6 03:12 BP 106 / 69; Pulse 99; Resp 16 A; Temp 102.2(C); Pulse Ox 92% on 100% FiO2 ETT vent; as6 03:16 BP 83 / 40; Pulse 96; Resp 25 A; Temp 102.2(C); Pulse Ox 90% on 100% FiO2 ETT vent; as6 03:20 BP 86 / 48; Pulse 93; Resp 25 A; Temp 102.2(C); Pulse Ox 91% on 100% FiO2 ETT vent; as6 03:25 BP 87 / 53; Pulse 91; Resp 25 A; Temp 102.2(C); Pulse Ox 93% on 100% FiO2 ETT vent; as6 03:30 BP 64 / 24; Pulse 91; Resp 24 A; Temp 102.2(C); Pulse Ox 94% on 100% FiO2 ETT vent; as6 03:35 BP 76 / 57; Pulse 90; Resp 25 A; Temp 102.2(C); Pulse Ox 94% on 100% FiO2 ETT vent; as6 03:45 BP 79 / 24; Pulse 93; Resp 22 A; Temp 102.2(C); Pulse Ox 92% on 100% FiO2 ETT vent; as6 03:55 BP 116 / 78; Pulse 98; Resp 27 A; Temp 102.2(C); Pulse Ox 85% on 100% FiO2 ETT vent; as6 04:10 BP 105 / 91; Pulse 92; Resp 25 A; Temp 101.8(C); Pulse Ox 95% on 100% FiO2 ETT vent; as6 04:30 BP 139 / 96; Pulse 90; Resp 24 A; Temp 101.7(C); Pulse Ox 98% on 100% FiO2 ETT vent; as6 04:45 BP 115 / 69; Pulse 89; Resp 25 A; Temp 100.6(C); Pulse Ox 99% on 100% FiO2 ETT vent; as6 05:00 BP 154 / 126; Pulse 84; Resp 16 S; Temp 100.8(C); Pulse Ox 26% on R/A; as6 05:12 BP 97 / 50; Pulse 114; Resp 25; Pulse Ox 80% ; as6 05:31 BP 112 / 68; Pulse 100; Pulse Ox 98% on 100% FiO2 ETT vent; as6 05:50 BP 106 / 55; Pulse 116; Pulse Ox 100% on 100% FiO2 ETT vent; as6 ED Course: 07/06 23:33 Patient arrived in ED. wm 23:35 Inserted saline lock: 20 gauge in right hand, using aseptic technique. as6 23:40 Assisted provider with intubation using 7.5 mm ETT via oral route. ET tube secured at as6 27cm at the lips. Set up intubation tray. Intubated by Mehdi Fernandez MD Placement verified by CO2 detector w/ + color change, auscultating bilateral breath sounds, CXR, Patient tolerated well. 23:42 Inserted saline lock: 18 gauge in left hand, using aseptic technique. Blood collected. as6 23:42 Mayer cath inserted, using sterile technique, 16 Fr., by ED staff, balloon inflated, to as6 gravity drainage. 23:47 NGT: inserted 16 Fr. other oral verified placement of air over stomach, verified return as6 of gastric contents, Placement verified by X-ray, Patient tolerated well. 23:50 Mehdi Fernandez MD is Attending Physician. kdr 23:58 Sukumar Martinez, JUANY is Primary Nurse. as6 23:59 Triage completed. as6 0914 00:13 XRAY Chest (1 view) In Process Unspecified. EDMS 00:14 Arm band placed on. aa9 00:33 Bed in low position. Call light in reach. Side rails up X2. as6 03:20 Assisted provider with central line placement. Set up central line tray. Triple lumen as6 line placed in right femoral. Line placed by Mehdi Fernandez MD Placement verified by blood return, Dressed with Tegaderm, Patient tolerated well. 03:[address] [facility], since Pt's Doctors are there, spoke with Zuleyka. wm 03:45 Chest Single View XRAY In Process Unspecified. EDMS 04:[address] [facility] at capacity. wm 04:15 Initiated transfer to [facility], spoke with Sharif. wm 04:39 Patient transferred, IV remains in place. as6 04:47 Pt accepted for transfer by Dr. Maria Ines Bajwa per Sharif Araiza. wm 05:43 Chest Single View XRAY In Process Unspecified. EDMS Administered Medications: 07/06 23:34 Drug: Etomidate 20 mg Route: IVP; Site: right hand; 07/07 06:55 Follow up: Response: No adverse reaction as6 07/06 23:34 Drug: Rocuronium 50 mg Route: IVP; Site: right hand; 07/07 07:00 Follow up: Response: No adverse reaction 07/06 23:42 Drug: Lasix (furosemide) 100 mg Route: IVP; Site: right hand; 07/07 06:54 Follow up: Response: No adverse reaction 07/06 23:45 Drug: Nitro-Bid (nitroglycerin) Ointment 2 % 2 inches Route: Transdermal; Site: as6 anterior chest wall; 07/07 01:08 Follow up: Response: Blood pressure is lowered as6 06:54 Follow up: Response: No adverse reaction 07/06 23:50 Drug: Propofol 5 mcg/kg/min {Note: starting rate 20. RASS +2.} Route: IV; Rate: as6 calculated rate; Site: right hand; 07/07 00:20 Follow up: Response: RASS: Restless (+1); Rate change 20 mcg/kg/min as6 00:30 Follow up: Response: RASS: Restless (+1); Rate change 30 mcg/kg/min as6 00:40 Follow up: Response: RASS: Restless (+1); Rate change 40 mcg/kg/min as6 00:50 Follow up: Response: RASS: Restless (+1); Rate change 50 mcg/kg/min as6 02:30 Follow up: Response: No adverse reaction; Blood pressure is lowered; IV Status: IV as6 converted to saline lock 03:30 Follow up: Response: RASS: Agitated (+2); Rate change 20 mcg/kg/min as6 07:06 Follow up: IV Status: Infusion continued upon transfer as6 00:29 Drug: Nitro Drip 5 mcg/min - (Nitroglycerin 50 mg, D5W 250 ml) Route: IV; Rate: 5 as6 mcg/min; Site: left hand; 00:35 Follow up: Response: No adverse reaction; Blood pressure is lowered; IV Status: Order as6 to discontinue infusion 01:23 Drug: Potassium Chloride 20 mEq Route: IV; Rate: calculated rate; Site: left hand; as6 03:30 Follow up: Response: No adverse reaction; IV Status: Completed infusion; IV Intake: as6 100ml 01:25 Drug: Tylenol Suppository 650 mg Route: ND; as6 07:08 Follow up: Response: No adverse reaction as6 01:29 Drug: NS 0.9% 500 ml Route: IV; Rate: bolus; Site: right hand; as6 07:11 Follow up: Response: No adverse reaction; IV Status: Completed infusion; IV Intake: as6 500ml 01:31 Drug: Midazolam 2 mg Route: IVP; Site: right hand; as6 07:11 Follow up: Response: RASS: Drowsy (-1) as6 01:50 Drug: Midazolam 2 mg Route: IVP; Site: right hand; as6 07:11 Follow up: Response: No adverse reaction as6 02:40 Drug: Midazolam 2 mg Route: IVP; Site: right hand; as6 07:09 Follow up: Response: No adverse reaction; RASS: Drowsy (-1) as6 02:55 Drug: fentaNYL (PF) 50 mcg Route: IVP; Site: left hand; as6 07:09 Follow up: Response: No adverse reaction as6 03:00 Drug: Succinylcholine 100 mg Route: IVP; Site: left hand; as6 07:08 Follow up: Response: No adverse reaction as6 03:48 Drug: Levophed (norepinephrine) 0.1 mcg/kg/min Route: IV; Rate: calculated rate; Site: as6 right femoral; 07:06 Follow up: IV Status: Infusion continued upon transfer as6 03:54 Drug: Zosyn (piperacillin-tazobactam) 3.375 grams Route: IVPB; Infused Over: 60 mins; as6 Site: right femoral; 07:10 Follow up: Response: No adverse reaction as6 07:10 Follow up: Response: No adverse reaction as6 05:10 Drug: Succinylcholine 100 mg Route: IVP; Site: right femoral; as6 07:15 Follow up: Response: No adverse reaction as6 05:10 Drug: Rocuronium 50 mg Route: IVP; Site: right femoral; as6 07:15 Follow up: Response: No adverse reaction as6 06:30 Drug: Rocuronium 50 mg Route: IVP; Site: right femoral; as6 07:15 Follow up: Response: No adverse reaction as6 06:53 Not Given (pt transfered before able to get med from ICU): Aspirin Suppository 300 mg as6 ND once Medication: 04:39 VIS not applicable for this client. as6 Intake: 03:30 IV: 100ml; Total: 100ml. as6 07:11 IV: 500ml; Total: 600ml. as6 Output: 03:40 Urine: 2400ml (Mayer); Total: 2400ml. ll3 Outcome: 03:40 ER care complete, transfer ordered by . kdr 04:39 Transferred as6 04:39 critical 04:39 Instructed on the need for transfer. 07:07 Patient left the ED. tw2 Signatures: Dispatcher [employer] EDMS Mehdi Fernandez MD MD kdr Sandy Hi RN RN tw2 Iris Holbrook Ashby, RN RN as6 Bhavik Uribe RN RN ll3 Shelly Wheeler, JUANY RN aa9 Corrections: (The following items were deleted from the chart) 04:24 03:[address] [facility], spoke with Zuleyka mario 07:01 07:00 Response: RASS: Restless (+1); Rate change 40 mcg/kg/min as6 as6
[2022-07-07] MEDS ORDERED: NOREPINEPHRINE BITARTRATE/D5W 4 MG/250 ML BAG IV ONE (03:46)
[2022-07-07] MEDS ORDERED: NA CHLORIDE 0.9% 100 ML ONE (03:59)
[2022-07-07] MEDS ORDERED: PIPERACIL/TAZO 3.375 GM VIAL IV ONE (03:59)
[2022-07-07 04:20] LABS: Arterial Blood Carboxyhemoglob 1.2 % (0-1.5); Blood Gas Oxyhemoglobin 87.4 % (94-97); Blood O2 Saturation 89.5 % (92-98.5)
[2022-07-07] MEDS ORDERED: ROCURONIUM 50 MG/5 ML VIAL IV ONE ×2 (05:12→06:02)
[2022-07-07] MEDS ORDERED: NA CHLORIDE 0.9% 1,000 ML ONE (06:18)
--- NOTE | 2022-07-07 11:10 | RAD REPORT ---
EXAM DESCRIPTION: RAD - Chest Single View - 07/07/2022 5:41 am CLINICAL HISTORY: POST ETT COMPARISON: 07/07/2022. TECHNIQUE: XR CHEST 1 VIEW 07/07/2022 5:11 AM CDT FINDINGS: The heart is enlarged. There is extensive airspace disease throughout essentially the enti re right lung. There may be left basilar airspace disease. Difficult to exclude small pleural effusio ns. There is no pneumothorax. There are no acute osseous findings. Endotracheal tube tip is in the lo wer third of the trachea. NG tube tip is below the diaphragm. IMPRESSION: Improved aeration of the left lung. Electronically signed by: Anthony Curry MD 07/07/2022 6:44 AM CDT Due to temporary technical issues with the PACS/Fluency reporting system, reports are being signed by the in house radiologists without review as a courtesy to insure prompt reporting. The interpreting radiologist is fully responsible for the content of the report.
--- NOTE | 2022-07-07 11:14 | RAD REPORT ---
EXAM DESCRIPTION: RAD - Chest Single View - 07/07/2022 3:43 am CLINICAL HISTORY: 31 years Male, POST ETT COMPARISON: 07/07/2022 at 12:03 AM TECHNIQUE: Single portable x-ray view of the chest performed on 07/07/2022 at 3:33 AM FINDINGS: The lungs are well-expanded. There is ongoing moderate diffuse bilateral airspace disease worse in the right hemithorax similar when compared to the earlier study. Findings may be due to kelly a, ARDS or extensive multifocal pneumonia. There is no evidence of a pneumothorax. The cardiac silhouette is stable and is prominent. The mediastinal contours are normal. No acute osseous abnormality is identified. No acute soft tissue abnormalities are seen. Lines and tubes: The endotracheal tube terminates approximately 5.2 cm above the shaylee. The feedin g tube extends below the diaphragm. The tip is not confirmed on this study. There are multiple overly ing threat monitoring analyst leads. A defibrillator pad projects over the left hemithorax. Free air: None IMPRESSION: 1. Ongoing moderate diffuse bilateral airspace disease worse in the right hemithorax sim ilar when compared to the earlier study. Findings may be due to edema, ARDS or extensive multifocal p neumonia. 2. Life support lines and tubes present as described above. Electronically signed by: Edilia Olmos DO 07/07/2022 4:08 AM CDT Due to temporary technical issues with the PACS/Fluency reporting system, reports are being signed by the in house radiologists without review as a courtesy to insure prompt reporting. The interpreting radiologist is fully responsible for the content of the report.
--- NOTE | 2022-07-07 11:21 | RAD REPORT ---
EXAM DESCRIPTION: RAD - Chest Single View - 07/07/2022 12:11 am CLINICAL HISTORY: DYSPNEA COMPARISON: None. TECHNIQUE: AP Chest. FINDINGS: Endotracheal tube is in the mid trachea. Feeding tube extends into the left upper abdomen in the region of the stomach. There is marked cardiac enlargement. Diffuse airspace opacities through out the right lung are present. Left lung appears grossly clear although evaluation is limited due to external monitoring device. No pneumothorax or pleural fluid. Unremarkable soft tissues and bones. IMPRESSION: 1. Cardiomegaly. Diffuse right lung pneumonia and/or asymmetric edema. 2. Endotracheal tube and feeding tube are appropriately positioned. Electronically signed by: Alfreda Morales DO 07/07/2022 12:40 AM CDT Due to temporary technical issues with the PACS/Fluency reporting system, reports are being signed by the in house radiologists without review as a courtesy to insure prompt reporting. The interpreting radiologist is fully responsible for the content of the report.
--- NOTE | 2022-07-07 17:08 | EKG ---
Test Date: 2022-07-06 Test Time: 23:30:39 Business Job Titles: MEASUREMENT RESULTS: Intervals: Rate: 129 DC: 174 QRSD: 120 QT: 280 QTc: 410 [place]: P: 47 DC: 174 QRS: -26 T: 99 INTERPRETIVE STATEMENTS: Sinus tachycardia Left atrial enlargement Left ventricular hypertrophy with QRS widening and repolarization abnormality Cannot rule out Septal infarct, age undetermined Abnormal ECG Compared to ECG 07/06/2022 23:30:13 Myocardial infarct finding now present Atrial premature complex(es) no longer present Electronically Signed On 07-07-22 17:06:38 CDT by Martinez Goyal
--- NOTE | 2022-07-07 17:08 | EKG ---
Test Date: 2022-07-06 Test Time: 23:33:26 Athletic Agent: MEASUREMENT RESULTS: Intervals: Rate: 72 AL: 184 QRSD: 122 QT: 384 QTc: 420 [place]: P: -16 AL: 184 QRS: 8 T: 22 INTERPRETIVE STATEMENTS: Sinus rhythm with frequent premature ventricular complexes and premature atrial complexes Left ventricular hypertrophy with QRS widening and repolarization abnormality Abnormal ECG Compared to ECG 07/06/2022 23:30:13 Ventricular premature complex(es) now present Sinus tachycardia no longer present Atrial abnormality no longer present Electronically Signed On 07-07-22 17:06:38 CDT by Martinez Goyal
--- NOTE | 2022-07-07 17:08 | EKG ---
Test Date: 2022-07-06 Test Time: 23:30:13 Gis Programmer: MEASUREMENT RESULTS: Intervals: Rate: 138 HI: 176 QRSD: 118 QT: 274 QTc: 415 [place]: P: 43 HI: 176 QRS: -28 T: 103 INTERPRETIVE STATEMENTS: Sinus tachycardia with premature atrial complexes Left atrial enlargement Left ventricular hypertrophy with QRS widening and repolarization abnormality Abnormal ECG Compared to ECG 10/12/2021 22:10:30 Sinus rhythm no longer present Aberrant conduction of supraventricular beat(s) no longer present Left-axis deviation no longer present Prolonged QT interval no longer present Electronically Signed On 07-07-22 17:06:39 CDT by Martinez Goyal
[2022-07-07 21:58] VITALS: TEMP 100.8
[2022-07-07 22:39] VITALS: BP 106/55; O2SAT 100
== END 2022-07-07 07:07 | disposition short-term general hospital (02) ==
LOC: ER 23:28
DX: I16.9 Hypertensive crisis, unspecified (principal); I50.1 Left ventricular failure, unspecified; I22.2 Subsequent non-ST elevation (NSTEMI) myocardial infarction; I21.9 Acute myocardial infarction, unspecified
CPT/HCPCS: 31500; 36415; 51702; 71045; 80048; 82805; 83605; 83880; 84484; 85025; 85379; 85610; 87040; 87205; 87811; 93005; 94002; 99291; 99292; J0171; J0330; J2250; J2543; J2704; J3010; J3480; J7030

== ENCOUNTER 2022-07-20 19:47 | Inpatient (IN) | payer SELFPAY ==
--- OUTSIDE RECORDS SUMMARY | 2022-07-20 19:52 | XMS REPORT | Continuity of Care Document ---
:1990 Author Organization [facility] t Address [address] [place] [address] Care Team Providers Name Role Phone MARIXA CASTILLO Primary Care Physician Unavailable Garett AVELAR, Rabia Kirkland Attending Clinician Jose L AVELAR, Ramiro Reyes Attending Clinician Kolton AVELAR, Fabi Landeros Attending Clinician Jeremiah AVELAR, Cherelle Live Attending Clinician Alexia Sahu MD Attending Clinician Stan AVELAR, Maxine Lundberg Attending Clinician [phone] ALEXIA SAHU Attending Clinician Unavailable RABIA BAJWA Attending Clinician Unavailable LILIANA [facility] Attending Clinician Unavailable Conor AVELAR, Liliana Attending Clinician RABIA BAJWA Admitting Clinician Unavailable Problems Condition Condition Condition Status Onset Resolution Last Treating Co mments Source Name Details Category Date Date Treatment Clinician Date Shock Shock Disease Active [facility] patient financial counselor patient financial counselor 07-08 Delia kes y y [facility]:00: [facility] NSTEMI NSTEMI Disease Active Univers (non-ST (non-ST 3-18 ity of elevated elevated 00:00: [place] myocardial myocardial 00 Me dical infarction infarction [...] Active Univers ALLERGIE Class ity of S [facility] NO KNOWN [facility] Social [facility] Social Habit Start Date Stop Date Quantity Comments Source History of tobacco Snuff User Univer sity of use [facility] History SDID University o f Alcohol Frequency [facility] Branch History SDID University o f Alcohol Std Drinks [facility] History [facility] University o f Alcohol Binge [facility] al Branch Exposure to 2022-02-19 2022-03-01 Not sure University of SARS-CoV-2 (event) 00:00:00 14:15:00 [facility] Alcohol intake 2022-03-01 2022-03-01 Current drinker Unive rsity of 00:00:00 00:00:00 of alcohol [facility] (finding) Branch Alcohol Comment 2022-01-08 2022-01-08 socially. Drink Univ ersity of 00:00:00 00:00:00 2-3 mixed drinks [facility] dical once a month. Branch Education 2022-01-08 2022-01-08 12 University of 00:00:00 00:00:00 [facility] Tobacco Comment 2022-01-08 2022-01-08 used about 17 Univer sity of 00:00:00 00:00:00 years [facility] Cigarettes smoked 2018-07-10 2018-07-10 Univers ity of current (pack per 00:00:00 00:00:00 [facility] ) - Reported Branch Cigarette 2018-07-10 2018-07-10 University of pack-years 00:00:00 00:00:00 [facility] Tobacco use and 2018-07-10 2018-07-10 Current user Univers ity of exposure 00:00:00 00:00:00 [facility] Sex Assigned At [address] [address] Delia kes 00:00:00 00:00:00 Medical Center Smoking Status Start Date Stop Date Source Former smoker 2018-07-10 00:00:00 2018-07-10 00:00:00 [facility] Medications Ordered Filled Start Stop Current Ordering Indication Dosage Frequency Signature Comments Components Source Medication Medication Date Date Medication? Clinician (SIG) Name Name losartan 2022- Yes 50mg QD Take [address] [facility] (COZAAR) 50 07-15 tablet (50 L ukes MG tablet 00:00: 23:59 mg total) Me dical 00 :00 by mouth Center daily. spironolact 2022- Yes 25mg QD Take [address] [facility] one 07-15 tablet (25 [facility] (ALDACTONE) 00:00: 23:59 mg total) Medical 25 MG 00 :00 by mouth Center tablet daily. furosemide 2022- Yes 40mg Q.5D Take [address] [facility] (LASIX) 40 07-14 tablet (40 Delia kes MG tablet 00:00: 23:59 mg total) Me dical 00 :00 by mouth 2 Center (two) times daily. metoprolol 2022- Yes 100mg Q.5D Take [address] [facility] [address] succinate 07-14 tablet [facility] (TOPROL-XL) 00:00: 23:59 (100 mg Me dical 100 MG 24 00 :00 total) by Cente r hr tablet mouth 2 (two) times daily. clindamycin 2021- No 300mg Q.[id number] Take [address] [address] (CLEOCIN) 07-14 [id number] capsule [facility] 300 MG 00:00: 23:59 3D (300 mg Medical capsule 00 :00 total) by Center mouth 3 (three) times daily for 2 days. amLODIPine 2021- No 10mg Take 10 mg Univers 10 mg 03-01 05 by mouth ity of tablet 14:51: 00:00 daily. [place] 58 :00 [facility] spironolact Yes 50mg Take 50 mg Univers one 03-01 by mouth ity of (ALDACTONE) 14:28: [place]. [place] 50 mg 54 Medical tablet Branch carvediloL Yes [id number] 25mg Take 1 U nivers 25 mg 5-09 tablet by ity of tablet 00:00: mouth 2 [place] 00 (two) Medical times Branch daily with meals. amLODIPine Yes [id number] 10mg Take 1 U nivers 10 mg 5-09 tablet by ity of tablet 00:00: mouth [place] 00 daily. Medical Branch lisinopriL Yes [id number] 40mg Take 1 U nivers 40 mg 5-09 tablet by ity of tablet 00:00: mouth [place] 00 daily. Medical Branch aspirin 81 Yes [id number] 81mg Take 1 U nivers mg chewable 3-23 tablet by ity of tablet 00:00: mouth [place] 00 daily. Medical Branch lisinopriL 2021- No [id number] 40mg Take 1 Univers 40 mg 3-23 05-09 tablet by ity of tablet 00:00: 00:00 mouth [place] 00 :00 daily. Medical Branch KCL 20 mEq Yes [id number] 40meq Take 2 Univers tablet 3-22 tablets by ity of 00:00: mouth 2 [place] 00 (two) Medical times Branch daily. furosemide Yes [id number] 80mg Take 1 U nivers 80 mg 3-22 tablet by ity of tablet 00:00: mouth [place] 00 every Medical morning Branch and evening. carvediloL 2021- No [id number] 25mg Take 1 Univers 25 mg 3-22 05-09 tablet by ity of tablet 00:00: 00:00 mouth 2 [place] 00 :00 (two) Medical times Branch daily with meals. atorvastati 2021- No [id number] 40mg Take 1 Univers n 40 mg 3-22 05-09 tablet by ity of tablet 00:00: 00:00 mouth at [place] 00 :00 bedtime. Medical Branch Immunizations Ordered Filled Immunization Date Status Comments [facility] e Immunization Name Name Pneumococcal 2022-01-12 [facility] o f Polysaccharide, 00:00:00 [place] Med ical PPSV23 (PNEUMOVAX) Branch Vital Signs Vital Name Observation Time Observation Value Comments Source WEIGHT 2022-07-14 05:00:00 181.666 kg WEIGHT 2022-07-13 05:24:00 181.666 kg WEIGHT 2022-07-12 03:33:00 182.573 kg WEIGHT 2022-07-08 07:00:00 196 kg HEIGHT 2022-07-07 09:00:00 182.9 cm WEIGHT 2022-07-07 07:00:00 196 kg WEIGHT 2022-07-14 05:00:00 181.666 kg WEIGHT 2022-07-13 05:24:00 181.666 kg WEIGHT 2022-07-12 03:33:00 182.573 kg WEIGHT 2022-07-08 07:00:00 196 kg HEIGHT 2022-07-07 09:00:00 182.9 cm WEIGHT 2022-07-07 07:00:00 196 kg WEIGHT 2022-07-14 05:00:00 181.666 kg WEIGHT 2022-07-13 05:24:00 181.666 kg WEIGHT 2022-07-12 03:33:00 182.573 kg WEIGHT 2022-07-08 07:00:00 196 kg HEIGHT 2022-07-07 09:00:00 182.9 cm WEIGHT 2022-07-07 07:00:00 196 kg Systolic blood 2022-03-01 19:37:00 164 mm[Hg] Univer sity of pressure [facility] Diastolic blood 2022-03-01 19:37:00 105 mm[Hg] Unive rsity of [facility] Heart rate 2022-03-01 19:37:00 75 /min Universi ty [facility] Respiratory rate 2022-03-01 19:25:00 22 /min Univ ersity of [facility] Body height 2022-03-01 19:25:00 182.9 cm Universi ty [facility] Body weight 2022-03-01 19:25:00 190.42 kg Universi [facility] BMI 2022-03-01 19:25:00 56.94 kg/m2 [facility] Oxygen saturation in 2022-03-01 19:25:00 95 /min [facility] Arterial blood by [facility] Pulse oximetry Branch Heart rate 2022-07-14 12:29:00 76 /min [facility] Respiratory rate 2022-07-14 12:29:00 18 /min [place] Oxygen saturation in 2022-07-14 12:29:00 93 /min [facility] Arterial blood by Medical Ce nter Pulse oximetry Systolic blood 2022-07-14 07:23:00 148 mm[Hg] [facility] Diastolic blood 2022-07-14 07:23:00 82 mm[Hg] [facility] Body temperature 2022-07-14 07:23:00 37 Rosa [place] Body weight 2022-07-14 05:00:00 181.666 kg [facility] BMI 2022-07-14 05:00:00 54.32 kg/m2 [facility] Body height 2022-07-07 09:00:00 182.9 cm [facility] Procedures Procedure Date / Time Performed Performing Clinician [facility] BASIC METABOLIC PANEL (7) 2022-07-14 04:45:00 Rhianna Ackerman [facility] MAGNESIUM 2022-07-14 04:45:00 Sudhakar Montelongo [place] ECG 12-LEAD 2022-07-14 04:18:[address] [facility] ECG 12-LEAD 2022-07-14 04:18:16 Unknown, Hl7 Doctor [facility] SARS-COV2/RT-PCR ([facility] & 2022-07-13 23:31:00 [facility] ECG 12-LEAD 2022-07-13 05:16:34 [facility] 2022-07-13 05:16:34 Unknown, Hl7 Doctor [facility] BASIC METABOLIC PANEL (7) 2022-07-13 03:39:00 Rhianna Ackerman [facility] MAGNESIUM 2022-07-13 03:39:00 Sudhakar Montelongo [place] BASIC METABOLIC PANEL (7) 2022-07-12 17:49:00 Rhianna Ackerman [facility] BASIC METABOLIC PANEL (7) 2022-07-12 04:44:00 Rhianna Ackerman [facility] MAGNESIUM 2022-07-12 04:44:00 JeremiahCherelle gonzalescaryn [place] PHOSPHORUS 2022-07-12 04:44:00 Taye Danielsll Nickcaryn [place] APTT 2022-07-12 04:44:[address] [facility] ECG 12-LEAD 2022-07-12 04:32:[address] [facility] ECG 12-LEAD 2022-07-12 04:32:40 Unknown, Hl7 Doctor [facility] APTT 2022-07-11 22:31:[address] [facility] BASIC METABOLIC PANEL (7) 2022-07-11 16:23:00 Rhianna Ackerman [facility] APTT 2022-07-11 13:52:00 [facility] BASIC METABOLIC PANEL (7) 2022-07-11 06:32:00 Rhianna Ackerman [facility] CBC W/PLT COUNT & AUTO 2022-07-11 06:32:00 KoltonFabi solano C [facility] APTT 2022-07-11 06:32:[address] [facility] CBC W/PLT COUNT & AUTO 2022-07-11 06:32:00 KoltonFabi solanoif C [facility] APTT 2022-07-11 00:08:[address] [facility] BASIC METABOLIC PANEL (7) 2022-07-10 15:55:00 Rhianna Ackerman [facility] MAGNESIUM 2022-07-10 15:55:00 Rhianna Ackerman [place] APTT 2022-07-10 15:55:[address] [facility] POCT-GLUCOSE METER 2022-07-10 12:39:00 Fabi Hi [facility] APTT 2022-07-10 08:56:[address] [facility] POCT-GLUCOSE METER 2022-07-10 06:33:00 Ramiro Domingo Eric [place] POCT-GLUCOSE METER 2022-07-10 02:09:00 Ramiro Domingo [place] APTT 2022-07-10 02:03:[address] [facility] CBC W/PLT COUNT & AUTO 2022-07-10 02:02:00 Itzel [facility] PHOSPHORUS 2022-07-10 02:02:[address] [facility] HEPATIC FUNCTION PANEL 2022-07-10 02:02:00 Itzel [facility] MAGNESIUM 2022-07-10 02:02:[address] [facility] CALCIUM, IONIZED 2022-07-10 02:02:00 [facility] COMPREHENSIVE METABOLIC 2022-07-10 02:02:00 [facility] CBC W/PLT COUNT & AUTO 2022-07-10 02:02:00 Itzel [facility] US RENAL COMPLETE 2022-07-09 23:34:00 [facility] BASIC [facility]OLIC PANEL (7) 2022-07-09 20:17:00 Rhianna Ackerman CH, I [facility] MAGNESIUM 2022-07-09 20:17:[address] [facility] APTT 2022-07-09 18:53:[address] [facility] POCT-GLUCOSE METER 2022-07-09 12:10:00 Ramiro Domingo [place] STREP PNEUMONIAE ANTIGEN 2022-07-09 12:01:00 Rhianna Ackerman [place] MAGNESIUM 2022-07-09 12:01:[address] [facility] BASIC METABOLIC PANEL (7) 2022-07-09 12:01:00 Rhianna Ackerman CH, I [facility] APTT 2022-07-09 12:01:[address] [facility] POCT-GLUCOSE METER 2022-07-09 05:40:00 Ramiro Domingo [place] CBC W/PLT COUNT & AUTO 2022-07-09 04:05:00 Itzel [facility] DIFFERENTIAL [facility] CBC W/PLT COUNT & AUTO 2022-07-09 04:05:00 Itzel [facility] DIFFERENTIAL [facility] PHOSPHORUS 2022-07-09 04:05:[address] [facility] HEPATIC FUNCTION PANEL 2022-07-09 04:05:00 Itzel [facility] BLOOD GAS, ARTERIAL 2022-07-09 04:05:00 Itzel [facility] MAGNESIUM 2022-07-09 04:05:[address] [facility] CALCIUM, IONIZED 2022-07-09 04:05:00 [facility] CREATINE KINASE (CK) 2022-07-09 04:05:00 [facility] IRON, TIBC, % SAT. 2022-07-09 04:05:00 Rhianna Ackerman [facility] (WITHOUT FERRITIN) [facility] RETICULOC[facility] 2022-07-09 04:05:00 [facility] 2022-07-09 04:05:00 Rhianna Ackerman [place] APTT 2022-07-09 04:05:[address] [facility] XR CHEST 1 VIEW PORTABLE 2022-07-09 03:44:00 Rhianna Ackerman [facility] POCT-GLUCOSE METER 2022-07-09 02:19:00 Ramiro Domingo Eric [place] BASIC METABOLIC PANEL (7) 2022-07-09 00:54:00 Gustavo Kuldeep [facility] POCT-GLUCOSE METER 2022-07-08 23:31:00 Jose L Ramiro Reyes [place] BLOOD GAS, ARTERIAL 2022-07-08 21:18:00 Gustavo Kuldeep [facility] POCT-GLUCOSE METER 2022-07-08 21:09:00 Rabia Bajwa [place] MAGNESIUM 2022-07-08 19:38:[address] [facility] BASIC METABOLIC PANEL (7) 2022-07-08 19:38:00 Rhianna Ackerman [facility] APTT 2022-07-08 19:38:[address] [facility] POCT-GLUCOSE METER 2022-07-08 17:52:00 Rabia Bjawa [place] ALDOSTERONE/PLASMA RENIN 2022-07-08 16:36:00 Sudhakar Montelongo [facility] XR ABDOMEN / KUB 1 VIEW 2022-07-08 12:15:00 Rhianna Ackerman [place] POCT-GLUCOSE METER 2022-07-08 12:11:00 Rabia Bajwa [place] APTT 2022-07-08 12:07:[address] [facility] URINE CULTURE 2022-07-08 11:58:00 Liz Acosta [place] URINALYSIS W/ REFLEX 2022-07-08 11:58:00 Liz Acosta [facility] URINE CULTURE [facility] VENOUS DOPPLER LEGS 2022-07-08 11:31:00 [facility] 2022-07-08 09:55:[address] [facility] BASIC METABOLIC PANEL (7) 2022-07-08 09:55:00 Rhianna Ackerman [facility] CREATINE KINASE (CK) 2022-07-08 09:55:00 iLz Acosta [place] POCT-GLUCOSE METER 2022-07-08 09:16:00 Rabia Bajwa [place] PROCALCITONIN 2022-07-08 09:15:00 Ramiro Domingo [place] APTT 2022-07-08 06:17:00 [facility] HIGH SENSITIVITY TROPONIN 2022-07-08 04:56:[address] [facility] Capo, C [facility] I [facility] B-TYPE NATRIURETIC FACTOR 2022-07-08 04:56:00 Wetmaria [facility] Capo, C [facility] (BNP) [facility] CBC W/PLT COUNT & AUTO 2022-07-08 04:55:00 Itzel [facility] DIFFERENTIAL [facility] CBC W/PLT COUNT & AUTO 2022-07-08 04:55:00 Itzel [facility] PHOSPHORUS 2022-07-08 04:55:[address] [facility] HEPATIC FUNCTION PANEL 2022-07-08 04:55:00 Itzel [facility] VANCOMYCIN LEVEL, RANDOM 2022-07-08 04:55:00 Osmin Emery [place] MAGNESIUM 2022-07-08 04:55:[address] [facility] BASIC METABOLIC PANEL (7) 2022-07-08 04:55:00 Rhianna Ackerman [facility] TRIGLYCERIDES 2022-07-08 04:55:00 Rhianna Ackerman [place] BASIC METABOLIC PANEL (7) 2022-07-08 00:04:00 Beth Robbins [facility] APTT 2022-07-08 00:04:00 [facility] POCT-GLUCOSE METER 2022-07-07 23:40:00 Rabia Bajwa [place] BLOOD GAS, ARTERIAL 2022-07-07 22:16:00 Wettrevor [facility] MAGNESIUM 2022-07-07 19:43:00 [facility] APTT 2022-07-07 18:18:00 Rabia Bajwa [place] POCT-GLUCOSE METER 2022-07-07 17:57:00 Garett Bridgtonriddhi Kirkland [place] BLOOD GAS, ARTERIAL 2022-07-07 15:42:00 Itzel [facility] RESPIRATORY PANEL [facility] 2022-07-07 15:28:00 Itzel [facility] APTT 2022-07-07 15:28:00 [facility] BASIC METABOLIC PANEL (7) 2022-07-07 15:28:00 Beth Robbins [facility] HEMOGLOBIN A1C 2022-07-07 15:28:00 [facility] LIPID PANEL 2022-07-07 15:28:00 [facility] POCT-GLUCOSE METER 2022-07-07 12:32:00 [facility]tt [facility] BLOOD C[facility]URE 2022-07-07 11:25:[address] [facility] SPUTUM CULTURE + GRAM 2022-07-07 11:25:[address] [facility] STAIN [facility] 2D ECHO W/ DOPPLER 2022-07-07 11:18:17 Ngozi [facility] (CW[facility]PW[facility] BLOOD CULTURE 2022-07-07 11:08:[address] [facility] MRSA SCREEN 2022-07-07 10:10:[address] [facility] RAPID DRUG SCREEN, URINE 2022-07-07 08:57:00 Ngozi Robbinsolette [facility] ECG 12-LEAD 2022-07-07 08:29:[address] [facility] ECG 12-LEAD 2022-07-07 08:29:39 Unknown, Hl7 Doctor [facility] BLOOD GAS, VENOUS 2022-07-07 08:28:00 Rabia Bajwa [facility] CALCIUM, IONIZED 2022-07-07 08:21:00 Itzel [facility] CBC W/PLT COUNT & AUTO 2022-07-07 08:20:00 Itzel [facility] DIFFERENTIAL [facility] (CELLAVISION MANUAL DIFF) 2022-07-07 08:20:00 Beth Robbins [facility] COMPREHENSIVE METABOLIC 2022-07-07 08:20:00 Ngozi Robbinsolette [facility] PANEL [facility] CBC W/PLT COUNT & AUTO 2022-07-07 08:20:00 Itzel [facility] DIFFERENTIAL [facility] PROTHROMBIN TIME/INR 2022-07-07 08:20:00 Itzel [facility] B-TYPE NATRIURETIC FACTOR 2022-07-07 08:20:00 Beth Robbins [facility] (BNP) [facility] TSH/FREE T4 IF INDICATED 2022-07-07 08:20:00 Beth Robbins [facility] CORTISOL 2022-07-07 08:20:[address] [facility] HIGH SENSITIVITY TROPONIN 2022-07-07 08:20:00 Beth Robbins [facility] LACTIC ACID, VENOUS 2022-07-07 08:20:00 Itzel [facility] MAGNESIUM 2022-07-07 08:20:[address] [facility] PHOSPHORUS 2022-07-07 08:20:[address] [facility] XR ABDOMEN / KUB 1 VIEW 2022-07-07 08:10:[address] [facility] XR CHEST 1 VIEW PORTABLE 2022-07-07 08:09:[address] [facility] / BEDSIDE [facility] EKG-SCANNED 2022-07-07 00:00:00 Provider, Default St Gypsy es Scanning [facility] Plan of Care Planned Activity Planned Date Details Comments Source Future Scheduled 2025-07-[address] [facility] 00:00:00 (procedure) [code = Medical Center [id number]] Future Scheduled 2023-01-[address] [facility] Test 00:00:00 0-64 YRS (2 - PCV) Medical C enter [code = PNEUMOCOCCAL VACCINE 0-64 YRS (2 - PCV)] Future Scheduled 2022-06-24 INFLUENZA VACCINE (#1) [facility] 00:00:00 [code = INFLUENZA Medical Ce nter VACCINE (#1)] Future Scheduled 2021-10-[address] [facility] Test 00:00:00 (12+) [code = Medical Center DEPRESSION SCREENING (12+)] Future Scheduled 2008 DTAP/TDAP/TD VACCINES [facility] Test 00:00:00 (1 - Tdap) [code = Medical C enter DTAP/TDAP/TD VACCINES (1 - Tdap)] Future Scheduled 2007 HEPATITIS C SCREENING [facility] Test 00:00:00 [code = HEPATITIS C Medical Center SCREENING] Future Scheduled 1990-04-20 COVID-19 VACCINE (#1) [facility] Test 00:00:00 [code = COVID-[address] VACCINE (#1)] Encounters Start End Encounter Admission Attending Care Care Encounter Source Date/Time Date/Time Type Type Clinicians Facility Department ID 2022-07-07 2022-07-14 [facility] Rabia Bajwa [facility] [id number] 07:25:00 14:13:00 Encounter Ramiro Domingo [facility] Alexia Sahu Muhammad [facility] 2022-07-07 2022-07-14 Inpatient ER ASHLIE SAHU [facility] Med 2 [id number] [facility] 07:25:00 14:13:00 ALEXIA 2022-07-07 2022-07-07 [id number] 00:00:00 23:59:00 [facility] 2022-07-07 2022-07-07 Orders [facility] [id number] 00:00:00 00:00:00 Only [facility] 2022-03-15 2022-03-15 Outpatient R [facility] [id number] Univers 16:30:00 [facility]:30[facility] 2022-03-04 2022-03-04 [facility] [id number] Univers 08:15:00 08:15:00 LILIANA [id number] it o f [facility] 2022-03-01 2022-03-01 Office [facility] [id number] Univers 14:20:00 15:01:31 Visit Liliana THOMAS [id number] [facility] [place] [id number] Renee SAULIO [id number] Wy dical [facility] 059 [facility] Results Test Description Test Time Test Comments Results Result Comments Source SARS-CoV2/RT-PCR (Asymptomatic ONLY) 2022-07-14 12:35:41 Test Item Value Reference Range Interpretation Comme nts SARS-COV2/RT-PCR (test code = Negative Not Detected, 02995-0) Negative, See external report for linked test SARS-COV-2 PERFORMING LAB [facility] SANG (test code = 49427-3) GRACIA (test code = GRACIA) Negative result for this test determines that SARS-CoV-2 RNA was not present in the specimen above the Limit of Detection (LOD). However, Negative results do not preclude SARS-CoV-2 infection and should not be used as the sole basis for treatment or patient management decisions. Negative results must be combined with clinical observations, patient history, and epidemiological information. A false negative result may occur if a specimen is improperly collected, transported or handled. A false negative result should be considered if patient's recent exposures or clinical presentation indicate that COVID-19 (SARS-CoV-2) is likely and diagnostic tests for other causes of illness are negative. Re-testing should be considered in cases of suspected false negatives. The limit of detection for this assay is 800 copies/mL. This SARS CoV-2 test is a real-time RT-PCR test intended for the qualitative detection of nucleic acid from SARS-CoV-2 in a nasopharyngeal swab specimen collected from individuals suspected of COVID-19 by their healthcare provider. This test has not been Food and Drug Administration (FDA) cleared or approved. This is a modified version of an approved Emergency Use Authorization (EUA) and is in the process of review by the FDA. Once authorized by the FDA, the issued EUA will be effective until the declaration that circumstances exist justifying the authorization of the emergency use of in vitro diagnostic tests for detection and/or diagnosis of COVID-19 is terminated under Section 564(b)(2) of the Act or the EUA is revoked under Section 564(g) of the Act. Fact Sheet for Healthcare Providers:https://www.[employer]. [employer]/sites/default/files/produ ct/documents/Fact_Sheet_HC_Pr pwtmplc_Zwqa_FHEG-QsP-0.pdf Fact Sheet for Healthcare Patients:https://www.[employer] om/sites/default/files/produc t/documents/Fact_Sheet_Patien wo_Eohy_LDKT-MhO-8.pdf Performing Laboratory:[facility], [place] [id number] [place], [place] [address]ARS-COV2/RT-PCR ([facility])2022-07-14 12:35:41 Test Item Value Reference Range Interpretation Comments SARS-COV2/RT-PCR (test Negative Not Detected, Negative, code = [id number]) See external report for linked test SARS-COV-2 PERFORMING LAB [facility] SANG (test code = 3241127) Negative result for this test determines that SARS-CoV-2 RNA was not present in the specimen above the Limit of Detection (LOD). However, Negative results do not preclude SARS-CoV-2 infection and should not be used as the sole basis for treatment or patient management decisions. Negative results must be combined with clinical observations, patient history, and epidemiological information. A false negative result may occur if a specimen is improperly collected, transported or handled. A false negative result should be considered if patient's recent exposures or clinical presentation indicate that COVID-19 (SARS-CoV-2) is likely and diagnostic tests for other causes of illness are negative. Re-testing should be considered in cases of suspected false negatives.The limit of detection for this assay is 800 copies/mL.This SARS CoV-2 test is a real-time RT-PCR test intended for the qualitative detection of nucleic acid from SARS-CoV-2 in a nasopharyngeal swab specimen collected from individuals suspected of COVID-19 by their healthcare provider.This test has not been Food and Drug Administration (FDA) cleared or approved. This is a modified version of an approved Emergency Use Authorization (EUA) and is in the process of review by the FDA. Once authorized by the FDA, the issued EUA will be effective until the declaration that circumstances exist justifying the authorization of the emergency use ofin vitro diagnostic tests for detection and/or diagnosis of COVID-19 is terminated under Section 564(b)(2) of the Act or the EUA is revoked under Section 564(g) of the Act.Fact Sheet for Healthcare Prov iders:https://www.[employer]/sites/default/files/product/documents/Fact_Sheet_HC _Dqzdttpbu_Opkj_PAAS-AdH-8.pdfFact Sheet for Healthcare Patients:https://www.[employer]/sites/default/files/product/docume nts/Ejgt_Ohyke_Dnqmlomt_Arrd_XXKF-NkC-7.pdfPerforming Laboratory:[facility] [facility], [place], [place] [id number] 06:14:46 Test Item Value Reference Range Interpretation Comments MAGNESIUM (BEAKER) (test code = 1.8 mg/dL 1.6-2.6 627) Group Supervisor Yard ID - CHANTELL MBASIC METABOLIC [id number] 06:14:45 Test Item Value Reference Range Interpretation Comments SODIUM (BEAKER) 140 meq/L 136-145 (test code = 381) POTASSIUM 3.7 meq/L 3.5-5.1 (BEAKER) (test code = 379) CHLORIDE (BEAKER) 100 meq/L 98-107 (test code = 382) CO2 (BEAKER) 31 meq/L 22-29 H (test code = 355) BLOOD UREA 22 mg/dL 7-21 H NITROGEN (BEAKER) (test code = 354) CREATININE 1.00 mg/dL 0.57-1.25 (BEAKER) (test code = 358) GLUCOSE RANDOM 85 mg/dL 70-105 (BEAKER) (test code = 652) CALCIUM (BEAKER) 9.8 mg/dL 8.4-10.2 (test code = 697) EGFR (BEAKER) 104 Interpretatio n of eGFR (test code = mL/min/1.73 values Stage De scription 1092) sq m Result G1 Kelly l or high >=90 G2 Mildly decreased 60-89 G3a Mildl y to moderately 45-5 9 G3b Moderately to s everely 30-44 G4 Severl y decreased 15-29 G5 Kidney failure <15Reported eGF R is based on the CKD-EPI 2020 equation that d oes not use a race coefficientEsti mated GFR is not as accur ate as Creatinine Noelle lj in predicting glom erular filtration rate . Estimated GFR is not appl icable for dialysis patien ts Group Supervisor Yard ID - CHANTELL [id number] 04:40:16 Test Item Value Reference Range Interpretation Comments MAGNESIUM (BEAKER) (test code = 1.8 mg/dL 1.6-2.6 627) Group Supervisor Yard ID - DEBRA LBASIC METABOLIC [id number] 04:40:15 Test Item Value Reference Range Interpretation Comments SODIUM (BEAKER) 141 meq/L 136-145 (test code = 381) POTASSIUM 3.4 meq/L 3.5-5.1 L (BEAKER) (test code = 379) CHLORIDE (BEAKER) 98 meq/L 98-107 (test code = 382) CO2 (BEAKER) 31 meq/L 22-29 H (test code = 355) BLOOD UREA 23 mg/dL 7-21 H NITROGEN (BEAKER) (test code = 354) CREATININE 1.12 mg/dL 0.57-1.25 (BEAKER) (test code = 358) GLUCOSE RANDOM 90 mg/dL 70-105 (BEAKER) (test code = 652) CALCIUM (BEAKER) 10.1 mg/dL 8.4-10.2 (test code = 697) EGFR (BEAKER) 91 Interpretatio n of eGFR (test code = mL/min/1.73 values Stage De scription 1092) sq m Result G1 Kelly l or high >=90 G2 Mildly decreased 60-89 G3a Mildl y to moderately 45-5 9 G3b Moderately to s everely 30-44 G4 Severl y decreased 15-29 G5 Kidney failure <15Reported eGF R is based on the CKD-EPI 2021 equation that d oes not use a race coefficientEsti mated GFR is not as accur ate as Creatinine Noelle lj in predicting glom erular filtration rate . Estimated GFR is not appl icable for dialysis patien ts Group Supervisor Yard ID - PIAYA LBASIC METABOLIC [id number] 18:24:56 Test Item Value Reference Range Interpretation Comments SODIUM (BEAKER) 141 meq/L 136-145 (test code = 381) POTASSIUM 3.6 meq/L 3.5-5.1 Specimen slight ly (BEAKER) (test hemolyzed code = 379) CHLORIDE (BEAKER) 99 meq/L 98-107 (test code = 382) CO2 (BEAKER) 34 meq/L 22-29 H (test code = 355) BLOOD UREA 24 mg/dL 7-21 H NITROGEN (BEAKER) (test code = 354) CREATININE 1.12 mg/dL 0.57-1.25 Specimen slight ly (BEAKER) (test hemolyzed code = 358) GLUCOSE RANDOM 95 mg/dL 70-105 (BEAKER) (test code = 652) CALCIUM (BEAKER) 10.2 mg/dL 8.4-10.2 (test code = 697) EGFR (BEAKER) 91 Interpretati on of eGFR (test code = mL/min/1.73 values Stage De scription 1092) sq m Result G1 Kelly l or high >=90 G2 Mildly decreased 60-89 G3a Mildl y to moderately 45-5 9 G3b Moderately to s everely 30-44 G4 Severl y decreased 15-29 G5 Kidney failure <15Reported eGF R is based on the CKD-EPI 2021 equation that d oes not use a race coefficientEsti mated GFR is not as accur ate as Creatinine Noelle calhoun in predicting glom erular filtration rate . Estimated GFR is not appl icable for dialysis patien ts Group Supervisor Yard ID - BSBLOOD [id number] 14:00:43 Test Item Value Reference Range Interpretation Comments CULTURE (BEAKER) (test No growth in 5 days code = 1095) BLOOD [id number] 14:00:43 Test Item Value Reference Range Interpretation Comments CULTURE (BEAKER) (test No growth in 5 days code = 1095) [id number] 06:36:09 Test Item Value Reference Range Interpretation Comments PHOSPHORUS (BEAKER) (test code = 3.2 mg/dL 2.3-4.7 604) Group Supervisor Yard ID - DEBRA [id number] 06:36:08 Test Item Value Reference Range Interpretation Comments MAGNESIUM (BEAKER) (test code = 1.8 mg/dL 1.6-2.6 627) Group Supervisor Yard ID - PIFLO LBASIC METABOLIC [id number] 06:36:08 Test Item Value Reference Range Interpretation Comments SODIUM (BEAKER) 141 meq/L 136-145 (test code = 381) POTASSIUM 3.2 meq/L 3.5-5.1 L (BEAKER) (test code = 379) CHLORIDE (BEAKER) 101 meq/L 98-107 (test code = 382) CO2 (BEAKER) 30 meq/L 22-29 H (test code = 355) BLOOD UREA 24 mg/dL 7-21 H NITROGEN (BEAKER) (test code = 354) CREATININE 1.00 mg/dL 0.57-1.25 (BEAKER) (test code = 358) GLUCOSE RANDOM 89 mg/dL 70-105 (BEAKER) (test code = 652) CALCIUM (BEAKER) 9.5 mg/dL 8.4-10.2 (test code = 697) EGFR (BEAKER) 104 Interpretatio n of eGFR (test code = mL/min/1.73 values Stage De scription 1092) sq m Result G1 Kelly l or high >=90 G2 Mildly decreased 60-89 G3a Mildl y to moderately 45-5 9 G3b Moderately to s everely 30-44 G4 Severl y decreased 15-29 G5 Kidney failure <15Reported eGF R is based on the CKD-EPI 2020 equation that d oes not use a race coefficientEsti mated GFR is not as accur ate as Creatinine Noelle lj in predicting glom erular filtration rate . Estimated GFR is not appl icable for dialysis patien ts Group Supervisor Yard ID - DEBRA [id number] 05:58:26 Test Item Value Reference Range Interpretation Comments PARTIAL THROMBOPLASTIN TIME 63.6 seconds 22.5-36.0 H (BEAKER) (test code = 760) [id number] 22:53:06 Test Item Value Reference Range Interpretation Comments PARTIAL THROMBOPLASTIN TIME 62.1 seconds 22.5-36.0 H (BEAKER) (test code = 760) BASIC METABOLIC [id number] 16:52:18 Test Item Value Reference Range Interpretation Comments SODIUM (BEAKER) 140 meq/L 136-145 (test code = 381) POTASSIUM 3.7 meq/L 3.5-5.1 Specimen modera tely (BEAKER) (test hemolyzed code = 379) CHLORIDE (BEAKER) 101 meq/L 98-107 (test code = 382) CO2 (BEAKER) 28 meq/L 22-29 (test code = 355) BLOOD UREA 27 mg/dL 7-21 H NITROGEN (BEAKER) (test code = 354) CREATININE 1.27 mg/dL 0.57-1.25 H Specimen modera tely (BEAKER) (test hemolyzed code = 358) GLUCOSE RANDOM 91 mg/dL 70-105 (BEAKER) (test code = 652) CALCIUM (BEAKER) 9.6 mg/dL 8.4-10.2 (test code = 697) EGFR (BEAKER) 78 Interpretatio n of eGFR (test code = mL/min/1.73 values Stage De scription 1092) sq m Result G1 Kelly l or high >=90 G2 Mildly decreased 60-89 G3a Mildl y to moderately 45-5 9 G3b Moderately to s everely 30-44 G4 Severl y decreased 15-29 G5 Kidney failure <15Reported eGF R is based on the CKD-EPI 2021 equation that d oes not use a race coefficientEsti mated GFR is not as accur ate as Creatinine Noelle lj in predicting glom erular filtration rate . Estimated GFR is not appl icable for dialysis patien ts Group Supervisor Yard GAUTAM - DEBRA [id number] 14:11:31 Test Item Value Reference Range Interpretation Comments PARTIAL THROMBOPLASTIN TIME 84.6 seconds 22.5-36.0 H (BEAKER) (test code = 760) BASIC METABOLIC [id number] 07:39:08 Test Item Value Reference Range Interpretation Comments SODIUM (BEAKER) 143 meq/L 136-145 (test code = 381) POTASSIUM 3.5 meq/L 3.5-5.1 (BEAKER) (test code = 379) CHLORIDE (BEAKER) 102 meq/L 98-107 (test code = 382) CO2 (BEAKER) 30 meq/L 22-29 H (test code = 355) BLOOD UREA 29 mg/dL 7-21 H NITROGEN (BEAKER) (test code = 354) CREATININE 1.32 mg/dL 0.57-1.25 H (BEAKER) (test code = 358) GLUCOSE RANDOM 91 mg/dL 70-105 (BEAKER) (test code = 652) CALCIUM (BEAKER) 9.8 mg/dL 8.4-10.2 (test code = 697) EGFR (BEAKER) 74 Interpretatio n of eGFR (test code = mL/min/1.73 values Stage De scription 1092) sq m Result G1 Norm al or high >=90 G2 Mildly decreased 60-89 G3a Mildl y to moderately 45-5 9 G3b Moderately to s everely 30-44 G4 Severl y decreased 15-29 G5 Kidne y failure <15Reported eGF R is based on the CKD-EPI 2020 equation that d oes not use a race coefficientEsti mated GFR is not as accur ate as Creatinine Noelle calhoun in predicting glom erular filtration rate . Estimated GFR is not appl icable for dialysis patien ts Group Supervisor Yard ID - PIAYA [id number] 06:59:54 Test Item Value Reference Range Interpretation Comments PARTIAL THROMBOPLASTIN TIME 55.9 seconds 22.5-36.0 H (BEAKER) (test code = 760) CBC W/PLT COUNT & AUTO [id number] 06:40:27 Test Item Value Reference Range Interpretation Comments WHITE BLOOD CELL COUNT (BEAKER) 6.2 K/ L 3.5-10.5 (test code = 775) RED BLOOD CELL COUNT (BEAKER) 4.38 M/ L 4.63-6.08 L (test code = 761) HEMOGLOBIN (BEAKER) (test code = 11.7 GM/DL 13.7-17.5 L 410) HEMATOCRIT (BEAKER) (test code = 37.0 % 40.1-51.0 L 411) MEAN CORPUSCULAR VOLUME (BEAKER) 84.5 fL 79.0-92.2 (test code = 753) MEAN CORPUSCULAR HEMOGLOBIN 26.7 pg 25.7-32.2 (BEAKER) (test code = 751) MEAN CORPUSCULAR HEMOGLOBIN CONC 31.6 GM/DL 32.3-36.5 L (BEAKER) (test code = 752) RED CELL DISTRIBUTION WIDTH 14.9 % 11.6-14.4 H (BEAKER) (test code = 412) PLATELET COUNT (BEAKER) (test 228 K/CU MM 150-450 code = 756) MEAN PLATELET VOLUME (BEAKER) 10.1 fL 9.4-12.4 (test code = 754) NUCLEATED RED BLOOD CELLS 0 /100 WBC 0-0 (BEAKER) (test code = 413) NEUTROPHILS RELATIVE PERCENT 72 % (BEAKER) (test code = 429) LYMPHOCYTES RELATIVE PERCENT 17 % (BEAKER) (test code = 430) MONOCYTES RELATIVE PERCENT 6 % (BEAKER) (test code = 431) EOSINOPHILS RELATIVE PERCENT 4 % (BEAKER) (test code = 432) BASOPHILS RELATIVE PERCENT 0 % (BEAKER) (test code = 437) NEUTROPHILS ABSOLUTE COUNT 4.43 K/ L 1.78-5.38 (BEAKER) (test code = 670) LYMPHOCYTES ABSOLUTE COUNT 1.06 K/ L 1.32-3.57 L (BEAKER) (test code = 414) MONOCYTES ABSOLUTE COUNT (BEAKER) 0.36 K/ L 0.30-0.82 (test code = 415) EOSINOPHILS ABSOLUTE COUNT 0.27 K/ L 0.04-0.54 (BEAKER) (test code = 416) BASOPHILS ABSOLUTE COUNT (BEAKER) 0.02 K/ L 0.01-0.08 (test code = 417) IMMATURE GRANULOCYTES-RELATIVE 0 % 0-1 PERCENT (BEAKER) (test code = 2801) [id number] 00:37:51 Test Item Value Reference Range Interpretation Comments PARTIAL THROMBOPLASTIN TIME 50.4 seconds 22.5-36.0 H (BEAKER) (test code = 760) BASIC METABOLIC [id number] 16:30:38 Test Item Value Reference Range Interpretation Comments SODIUM (BEAKER) 141 meq/L 136-145 (test code = 381) POTASSIUM 3.1 meq/L 3.5-5.1 L (BEAKER) (test code = 379) CHLORIDE (BEAKER) 101 meq/L 98-107 (test code = 382) CO2 (BEAKER) 31 meq/L 22-29 H (test code = 355) BLOOD UREA 34 mg/dL 7-21 H NITROGEN (BEAKER) (test code = 354) CREATININE 1.48 mg/dL 0.57-1.25 H (BEAKER) (test code = 358) GLUCOSE RANDOM 86 mg/dL 70-105 (BEAKER) (test code = 652) CALCIUM (BEAKER) 9.5 mg/dL 8.4-10.2 (test code = 697) EGFR (BEAKER) 65 Interpretatio n of eGFR (test code = mL/min/1.73 values Stage De scription 1092) sq m Result G1 Kelly l or high >=90 G2 Mildly decreased 60-89 G3a Mildl y to moderately 45-5 9 G3b Moderately to s everely 30-44 G4 Severl y decreased 15-29 G5 Kidne y failure <15Reported eGF R is based on the CKD-EPI 2020 equation that d oes not use a race coefficientEsti mated GFR is not as accur ate as Creatinine Noelle calhoun in predicting glom erular filtration rate . Estimated GFR is not appl icable for dialysis patien ts Group Supervisor Yard ID - CHANTELL [id number] 16:30:38 Test Item Value Reference Range Interpretation Comments MAGNESIUM (BEAKER) (test code = 2.2 mg/dL 1.6-2.6 627) Group Supervisor Yard ID - CHANTELL [id number] 16:18:38 Test Item Value Reference Range Interpretation Comments PARTIAL THROMBOPLASTIN TIME 36.1 seconds 22.5-36.0 H (BEAKER) (test code = 760) POC-Glucose [id number] 12:50:28 Test Item Value Reference Range Interpretation Comments POC-Glucose Meter (test 107 mg/dL 70-110 : TE STED AT [facility] code = 1538) [address] [facility], [address]: Group Supervisor Yard/Techni kota ID = [id number] for NEHA (V), OXANA Lab Interpretation (test Normal code = 96248-5) [place] [id number] 12:50:28 Test Item Value Reference Range Interpretation Comments POC-GLUCOSE METER 107 mg/dL 70-110 : TESTED A T [facility] [address] (BEAKER) (test code = [facility], 1538) [address]: Group Supervisor Yard/Techni kota ID = [id number] for GO NZALEZ (V), OXANA Urine [id number] 10:15:05 Test Item Value Reference Range Interpretation Comments Result (test code = 6463-4) [facility] [id number] 09:54:43 Test Item Value Reference Interpretation Comments Range CULTURE (AKER) STAPHYLOCOCCUS A <1+ Staph ylococcus (test code = 1095) AUREUS aureus Clindamycin (test S code = 10) Erythromycin (test S code = 4) Linezolid (test code S = 40) Nitrofurantoin (test S code = 23) Oxacillin (test code S = 14) Rifampin (test code = S 43) Tetracycline (test S code = 2) Trimethoprim + S Sulfamethoxazole (test code = 47) Vancomycin (test code S = 13) GRAM STAIN RESULT 2+ WBCs ([facility]) (test code = 1123) GRAM STAIN RESULT No organisms seen (AKER) (test code = 155865) <1+ Normal respiratory [place] [id number] 09:27:05 Test Item Value Reference Range Interpretation Comments PARTIAL THROMBOPLASTIN TIME 43.1 seconds 22.5-36.0 H (AKER) (test code = 760) POCT-GLUCOSE [id number] 06:44:29 Test Item Value Reference Range Interpretation Comments POC-GLUCOSE METER 80 mg/dL 70-110 : [facility] (test code = [facility], 1538) [address]: Group Supervisor Yard/Techni kota ID = [id number] for Xiong , Randall U/S, RENAL, [id number] 04:24:00Reason for exam:->Acute kidney injury [facility] : 1990 Sex: MFINAL REPORT Renal ultrasound dated 07/09/2022 CLINICAL HISTORY: Acute kidney injury COMPARISON: None Comment: Real-time transabdominal renal ultrasound was performed. Right kidney measures 12.8 x 6.1 x 5.7 cm. Left kidney measures 11.1 x 6.6 x 5.7 cm. Right renal cortex measures 1.7 cm. Left renal cortex measures 1.5 cm. Renal parenchymal echogenicity: Normal No hydronephrosis, nephrolithiasis or solid mass is seen. No cyst is identified on either kidney. Doppler ultrasound demonstrates apatent main renal artery and vein bilaterally. A Mayer catheter decompresses the urinary bladder. Impression: Unremarkable ultrasound appearance of the kidneys. Signed: Sherif Trotterort Verified Date/Time: 07/10/2022 04:24:19 CBC W/PLT COUNT & AUTO DIFFERENTIAL 2022-07-10 02:59:20 Test Item Value Reference Range Interpretation Comments WHITE BLOOD CELL COUNT (BEAKER) 10.4 K/ L 3.5-10.5 (test code = 775) RED BLOOD CELL COUNT (BEAKER) 3.92 M/ L 4.63-6.08 L (test code = 761) HEMOGLOBIN (BEAKER) (test code = 10.5 GM/DL 13.7-17.5 L 410) HEMATOCRIT (BEAKER) (test code = 32.7 % 40.1-51.0 L 411) MEAN CORPUSCULAR VOLUME (BEAKER) 83.4 fL 79.0-92.2 (test code = 753) MEAN CORPUSCULAR HEMOGLOBIN 26.8 pg 25.7-32.2 (BEAKER) (test code = 751) MEAN CORPUSCULAR HEMOGLOBIN CONC 32.1 GM/DL 32.3-36.5 L (BEAKER) (test code = 752) RED CELL DISTRIBUTION WIDTH 15.2 % 11.6-14.4 H (BEAKER) (test code = 412) PLATELET COUNT (BEAKER) (test 202 K/CU MM 150-450 code = 756) MEAN PLATELET VOLUME (BEAKER) 10.7 fL 9.4-12.4 (test code = 754) NUCLEATED RED BLOOD CELLS 0 /100 WBC 0-0 (BEAKER) (test code = 413) NEUTROPHILS RELATIVE PERCENT 84 % (BEAKER) (test code = 429) LYMPHOCYTES RELATIVE PERCENT 10 % (BEAKER) (test code = 430) MONOCYTES RELATIVE PERCENT 4 % (BEAKER) (test code = 431) EOSINOPHILS RELATIVE PERCENT 2 % (BEAKER) (test code = 432) BASOPHILS RELATIVE PERCENT 0 % (BEAKER) (test code = 437) NEUTROPHILS ABSOLUTE COUNT 8.73 K/ L 1.78-5.38 H (BEAKER) (test code = 670) LYMPHOCYTES ABSOLUTE COUNT 0.98 K/ L 1.32-3.57 L (BEAKER) (test code = 414) MONOCYTES ABSOLUTE COUNT (BEAKER) 0.41 K/ L 0.30-0.82 (test code = 415) EOSINOPHILS ABSOLUTE COUNT 0.18 K/ L 0.04-0.54 (BEAKER) (test code = 416) BASOPHILS ABSOLUTE COUNT (BEAKER) 0.02 K/ L 0.01-0.08 (test code = 417) IMMATURE GRANULOCYTES-RELATIVE 0 % 0-1 PERCENT (BEAKER) (test code = 2801) [id number] 02:53:36 Test Item Value Reference Range Interpretation Comments PARTIAL THROMBOPLASTIN TIME 88.0 seconds 22.5-36.0 H (BEAKER) (test code = 760) HEPATIC FUNCTION [id number] 02:49:21 Test Item Value Reference Range Interpretation Comments TOTAL PROTEIN (BEAKER) (test code = 6.8 gm/dL 6.0-8.3 770) ALBUMIN (BEAKER) (test code = 1145) 3.4 g/dL 3.5-5.0 L BILIRUBIN TOTAL (BEAKER) (test code 1.6 mg/dL 0.2-1.2 H = 377) BILIRUBIN DIRECT (BEAKER) (test 0.9 mg/dL 0.1-0.5 H code = 706) ALKALINE PHOSPHATASE (BEAKER) (test 32 U/L 40-150 L code = 346) AST (SGOT) (BEAKER) (test code = 20 U/L 5-34 353) ALT (SGPT) (BEAKER) (test code = 21 U/L 6-55 347) Group Supervisor Yard ID - CHANTELL [id number] 02:49:20 Test Item Value Reference Range Interpretation Comments MAGNESIUM (BEAKER) (test code = 2.2 mg/dL 1.6-2.6 627) Group Supervisor Yard ID - CHANTELL [id number] 02:49:20 Test Item Value Reference Range Interpretation Comments PHOSPHORUS (BEAKER) (test code = 3.3 mg/dL 2.3-4.7 604) Group Supervisor Yard ID - CHANTELL MCOMPREHENSIVE METABOLIC [id number] 02:49:19 Test Item Value Reference Range Interpretation Comments TOTAL PROTEIN 6.8 gm/dL 6.0-8.3 (BEAKER) (test code = 770) ALBUMIN (BEAKER) 3.4 g/dL 3.5-5.0 L (test code = 1145) ALKALINE 32 U/L 40-150 L PHOSPHATASE (BEAKER) (test code = 346) BILIRUBIN TOTAL 1.6 mg/dL 0.2-1.2 H (BEAKER) (test code = 377) SODIUM (BEAKER) 144 meq/L 136-145 (test code = 381) POTASSIUM (BEAKER) 3.4 meq/L 3.5-5.1 L (test code = 379) CHLORIDE (BEAKER) 104 meq/L 98-107 (test code = 382) CO2 (BEAKER) (test 29 meq/L 22-29 code = 355) BLOOD UREA 39 mg/dL 7-21 H NITROGEN (BEAKER) (test code = 354) CREATININE 2.11 mg/dL 0.57-1.25 H (BEAKER) (test code = 358) GLUCOSE RANDOM 85 mg/dL 70-105 (BEAKER) (test code = 652) CALCIUM (BEAKER) 9.4 mg/dL 8.4-10.2 (test code = 697) AST (SGOT) 20 U/L 5-34 (BEAKER) (test code = 353) ALT (SGPT) 21 U/L 6-55 (BEAKER) (test code = 347) EGFR (BEAKER) 42 Interpretatio n of eGFR (test code = 1092) mL/min/1.[address] age Description sq m Result G1 Kelly l or high >=90 G2 Mildly decreased 60-89 G3a Mildl y to moderately 45-5 9 G3b Moderately to s everely 30-44 G4 Severl y decreased 15-29 G5 Kidney failure <15Reported eGF R is based on the CKD-EPI 2020 equation that d oes not use a race coefficientEsti mated GFR is not as accur ate as Creatinine Noelle lj in predicting glom erular filtration rate . Estimated GFR is not appl icable for dialysis patien ts Group Supervisor Yard ID - CHANTELL MCALCIUM, [id number] 02:25:03 Test Item Value Reference Range Interpretation Comments CALCIUM IONIZED (BEAKER) (test 1.11 mmol/L 1.12-1.27 L code = 698) PH, BLOOD (BEAKER) (test code = 7.40 1810) POCT-GLUCOSE [id number] 02:20:42 Test Item Value Reference Range Interpretation Comments POC-GLUCOSE METER 80 mg/dL 70-110 : TESTED A T [facility] 6720 (BEAKER) (test code = [facility], 1538) [address]: Group Supervisor Yard/Techni kota ID = [id number] for Randall Xiong BASIC METABOLIC [id number] 21:26:13 Test Item Value Reference Range Interpretation Comments SODIUM (BEAKER) 142 meq/L 136-145 (test code = 381) POTASSIUM 3.3 meq/L 3.5-5.1 L (BEAKER) (test code = 379) CHLORIDE (BEAKER) 105 meq/L 98-107 (test code = 382) CO2 (BEAKER) 27 meq/L 22-29 (test code = 355) BLOOD UREA 41 mg/dL 7-21 H NITROGEN (BEAKER) (test code = 354) CREATININE 2.43 mg/dL 0.57-1.25 H (BEAKER) (test code = 358) GLUCOSE RANDOM 78 mg/dL 70-105 (BEAKER) (test code = 652) CALCIUM (BEAKER) 9.1 mg/dL 8.4-10.2 (test code = 697) EGFR (BEAKER) 36 Interpretatio n of eGFR (test code = mL/min/1.73 values Stage De scription 1092) sq m Result G1 Kelly l or high >=90 G2 Mildly decreased 60-89 G3a Mildl y to moderately 45-5 9 G3b Moderately to s everely 30-44 G4 Severl y decreased 15-29 G5 Kidney failure <15Reported eGF R is based on the CKD-EPI 2020 equation that d oes not use a race coefficientEsti mated GFR is not as accur ate as Creatinine Noelle lj in predicting glom erular filtration rate . Estimated GFR is not appl icable for dialysis patien ts Group Supervisor Yard ID - [id number] 21:26:13 Test Item Value Reference Range Interpretation Comments MAGNESIUM (BEAKER) (test code = 2.1 mg/dL 1.6-2.6 627) Group Supervisor Yard ID - [id number] 19:31:13 Test Item Value Reference Range Interpretation Comments PARTIAL THROMBOPLASTIN TIME 53.9 seconds 22.5-36.0 H (BEAKER) (test code = 760) Strep pneumoniae [id number] 13:33:57 Test Item Value Reference Range Interpretation Comments Strep pneumoniae Presumptive negative Presumptive Antigen (test code = [place] [address]-6) pneumonia - see pneumococcal comment pneumonia - see comment, Presumptive negative for pneumococcal meningitis - see comment GRACIA (test code = GRACIA) Presumptive negative for pneumococcal pneumonia, suggesting no current or recent pneumococcal infection. Infection due to S. pneumoniae cannot be ruled out since the antigen present in the sample may be below the detection limit of the test. Lab Interpretation Normal (test code = 90510-2) [facility] [id number] 13:33:57 Test Item Value Reference Range Interpretation Comments STREP PNEUMONIAE Presumptive negative Presumptive negative ANTIGEN (BEAKER) for pneumococcal for pneumococcal (test code = 1615) pneumonia - see pneumonia - see comment commen Presumptive negative for pneumococcal pneumonia, suggesting no current or recent pneumococcal infection. Infection due to S. pneumoniae cannot be ruled out since the antigen present in the sample may be below the detection limit of the test. Legionella antigen, [id number] 13:33:19 Test Item Value Reference Range Interpretation Comments Legionella Urine Negative - see Negative for L. Antigen (test code comment pneumophi la = 61462-8) serogroup 1 ant igen, suggesting no r ecent or current infe ction with this serog roup. Legionellosis c annot be ruled out si nce other serogroup s and species may cau se disease. [facility]TIGEN, [id number] 13:33:19 Test Item Value Reference Range Interpretation Comments L. PNEUMOPHILA Negative - see Negative fo r L. SEROGP 1 UR AG comment pneumophila (BEAKER) (test code serogrou p 1 antigen, = 1156) suggesting no r ecent or current infe ction with this serog roup. Legionellosis c annot be ruled out si nce other serogroup s and species may cau se disease. BASIC METABOLIC [id number] 13:06:21 Test Item Value Reference Range Interpretation Comments SODIUM (BEAKER) 142 meq/L 136-145 (test code = 381) POTASSIUM 3.2 meq/L 3.5-5.1 L (BEAKER) (test code = 379) CHLORIDE (BEAKER) 106 meq/L 98-107 (test code = 382) CO2 (BEAKER) 27 meq/L 22-29 (test code = 355) BLOOD UREA 42 mg/dL 7-21 H NITROGEN (BEAKER) (test code = 354) CREATININE 2.87 mg/dL 0.57-1.25 H (BEAKER) (test code = 358) GLUCOSE RANDOM 98 mg/dL 70-105 (BEAKER) (test code = 652) CALCIUM (BEAKER) 8.8 mg/dL 8.4-10.2 (test code = 697) EGFR (BEAKER) 29 Interpretatio n of eGFR (test code = mL/min/1.73 values Stage De scription 1092) sq m Result G1 Kelly l or high >=90 G2 Mildly decreased 60-89 G3a Mildl y to moderately 45- 59 G3b Moderately to s everely 30-44 G4 Severl y decreased 15-29 G5 Kidney failure <15Reported eGF R is based on the CKD-EPI 2020 equation that d oes not use a race coefficientEsti mated GFR is not as accur ate as Creatinine Noelle calhoun in predicting glom erular filtration rate . Estimated GFR is not appl icable for dialysis patien ts Group Supervisor Yard ID - [id number] 12:45:51 Test Item Value Reference Range Interpretation Comments MAGNESIUM (BEAKER) (test code = 2.2 mg/dL 1.6-2.6 627) Group Supervisor Yard ID - [id number] 12:24:44 Test Item Value Reference Range Interpretation Comments PARTIAL THROMBOPLASTIN TIME 44.3 seconds 22.5-36.0 H (BEAKER) (test code = 760) MRSA [id number] 12:23:30 Test Item Value Reference Range Interpretation Comments Result (test code = 6463-4) No MRSA isolated [facility] [id number] 12:23:30 Test Item Value Reference Range Interpretation Comments CULTURE (BEAKER) (test code No MRSA isolated = 1095) POCT-GLUCOSE [id number] 12:21:28 Test Item Value Reference Range Interpretation Comments POC-GLUCOSE METER 96 mg/dL 70-110 : TESTED A T [facility] 6720 (BEAKER) (test code = HETAL Fontanez [facility], 1538) 17971: Group Supervisor Yard/Techni kota ID = [id number] for [place] oaeagle, [place] POCT-GLUCOSE [id number] 05:53:00 Test Item Value Reference Range Interpretation Comments POC-GLUCOSE METER 105 mg/dL 70-110 : TESTED A T [facility] 6720 (BEAKER) (test code [facility], = 1538) 20680: Group Supervisor Yard/Techni kota ID = [id number] for SUGU , SHEENAMOL IRON, TIBC, % SAT. (WITHOUT FERRITIN)2022-07-09 05:49:52 Test Item Value Reference Range Interpretation Comments IRON (BEAKER) (test code = 547) 12.0 ug/dL 40.0-160.0 L TOTAL IRON BINDING CAPACITY 194 ug/dL 250-450 L (BEAKER) (test code = 769) IRON % SATURATION (2) (BEAKER) 6 % 20-55 L (test code = 2590) Group Supervisor Yard ID - ASHLEY [id number] 05:31:42 Test Item Value Reference Range Interpretation Comments MAGNESIUM (BEAKER) (test code = 2.3 mg/dL 1.6-2.6 627) Group Supervisor Yard ID - ASHLEY [id number] 05:31:42 Test Item Value Reference Range Interpretation Comments PHOSPHORUS (BEAKER) (test code = 4.3 mg/dL 2.3-4.7 604) Group Supervisor Yard ID - ASHLEY WCREATINE KINASE (CK)2022-07-09 05:31:42 Test Item Value Reference Range Interpretation Comments CREATINE KINASE TOTAL (BEAKER) (test 147 U/L 29-200 code = 380) Group Supervisor Yard ID - ASHLEY WHEPATIC FUNCTION [id number] 05:31:41 Test Item Value Reference Range Interpretation Comments TOTAL PROTEIN (BEAKER) (test code = 6.5 gm/dL 6.0-8.3 770) ALBUMIN (BEAKER) (test code = 1145) 3.4 g/dL 3.5-5.0 L BILIRUBIN TOTAL (BEAKER) (test code 2.2 mg/dL 0.2-1.2 H = 377) BILIRUBIN DIRECT (BEAKER) (test 1.4 mg/dL 0.1-0.5 H code = 706) ALKALINE PHOSPHATASE (BEAKER) (test 30 U/L 40-150 L code = 346) AST (SGOT) (BEAKER) (test code = 17 U/L 5-34 353) ALT (SGPT) (BEAKER) (test code = 21 U/L 6-55 347) Group Supervisor Yard ID - ASHLEY [id number] 05:28:37 Test Item Value Reference Range Interpretation Comments FERRITIN (BEAKER) (test code = 349.00 ng/mL 5.00-275.00 H 361) Group Supervisor Yard ID - ASHLEY WRAD, CHEST, 1 VIEW, NON [id number] 05:03:00Reason for exam:->Eval tube placement and lungShould this be performed at the bedside?->[facility] : 1990 Sex: MFINAL REPORT RAD, CHEST, 1 VIEW, NON DEPT CLINICAL STATEMENT: Evaluate tube placement. COMPARISON: 07/07/2022. FINDINGS: Heart is moderately enlarged. Endotracheal tube and enteric tube are in place. Significant interval improvement in right lung airspace disease appears to prior study. No si gnificant pleural effusion. No pneumothorax. IMPRESSION: Significant interval improvement in right lung pneumonia. Enteric tube is in place with tip below the diaphragm. Signed: Bam Henao Verified Date/Time: 07/09/2022 05:03:56 [id number] 04:52:55 Test Item Value Reference Range Interpretation Comments PARTIAL THROMBOPLASTIN TIME 47.7 seconds 22.5-36.0 H (BEAKER) (test code = 760) CBC W/PLT COUNT & AUTO [id number] 04:43:05 Test Item Value Reference Range Interpretation Comments WHITE BLOOD CELL COUNT (BEAKER) 10.6 K/ L 3.5-10.5 H (test code = 775) RED BLOOD CELL COUNT (BEAKER) 4.06 M/ L 4.63-6.08 L (test code = 761) HEMOGLOBIN (BEAKER) (test code = 11.0 GM/DL 13.7-17.5 L 410) HEMATOCRIT (BEAKER) (test code = 32.8 % 40.1-51.0 L 411) MEAN CORPUSCULAR VOLUME (BEAKER) 80.8 fL 79.0-92.2 (test code = 753) MEAN CORPUSCULAR HEMOGLOBIN 27.1 pg 25.7-32.2 (BEAKER) (test code = 751) MEAN CORPUSCULAR HEMOGLOBIN CONC 33.5 GM/DL 32.3-36.5 (BEAKER) (test code = 752) RED CELL DISTRIBUTION WIDTH 15.3 % 11.6-14.4 H (BEAKER) (test code = 412) PLATELET COUNT (BEAKER) (test 196 K/CU MM 150-450 code = 756) MEAN PLATELET VOLUME (BEAKER) 10.9 fL 9.4-12.4 (test code = 754) NUCLEATED RED BLOOD CELLS 0 /100 WBC 0-0 (BEAKER) (test code = 413) NEUTROPHILS RELATIVE PERCENT 84 % (BEAKER) (test code = 429) LYMPHOCYTES RELATIVE PERCENT 11 % (BEAKER) (test code = 430) MONOCYTES RELATIVE PERCENT 4 % (BEAKER) (test code = 431) EOSINOPHILS RELATIVE PERCENT 1 % (BEAKER) (test code = 432) BASOPHILS RELATIVE PERCENT 0 % (BEAKER) (test code = 437) NEUTROPHILS ABSOLUTE COUNT 8.86 K/ L 1.78-5.38 H (BEAKER) (test code = 670) LYMPHOCYTES ABSOLUTE COUNT 1.11 K/ L 1.32-3.57 L (BEAKER) (test code = 414) MONOCYTES ABSOLUTE COUNT (BEAKER) 0.44 K/ L 0.30-0.82 (test code = 415) EOSINOPHILS ABSOLUTE COUNT 0.11 K/ L 0.04-0.54 (BEAKER) (test code = 416) BASOPHILS ABSOLUTE COUNT (BEAKER) 0.02 K/ L 0.01-0.08 (test code = 417) IMMATURE GRANULOCYTES-RELATIVE 0 % 0-1 PERCENT (BEAKER) (test code = 2801) CALCIUM, [id number] 04:29:10 Test Item Value Reference Range Interpretation Comments CALCIUM IONIZED (BEAKER) (test 1.07 mmol/L 1.12-1.27 L code = 698) PH, BLOOD (BEAKER) (test code = 7.46 1810) Blood gas, [id number] 04:29:05 Test Item Value Reference Range Interpretation Comments pH, Arterial (test code 7.45 7.35-7.45 = 2744-1) pCO2, Arterial (test 35 See_Comment [Autom ated code = 2019-) message] The system which generated this result transmitted reference range : 35 - 45 mm Hg. The reference range was not used to interpret this result as normal/abnormal . pO2, Arterial (test 138 See_Comment H [Automa kandice code = 2703-7) message] The system which generated this result transmitted reference range : 80 - 90 mm Hg. The reference range was not used to interpret this result as normal/abnormal . O2 Sat, Arterial (test 98.8 % 96.0-97.0 H code = 2708-6) HCO3, Arterial (test 23 mmol/L 21-29 code = 1960-4) Base Excess, Arterial -0.1 mmol/L -2.0-3.0 (test code = 1925-7) Patient Temperature 38.0 (test code = 8310-5) FIO2 (test code = 1819) 30 Lab Interpretation Abnormal (test code = 18554-2) [facility], [id number] 04:29:05 Test Item Value Reference Range Interpretation Comments PH ARTERIAL (BEAKER) (test code = 7.45 7.35-7.45 383) PCO2 ARTERIAL (BEAKER) (test code 35 mm Hg 35-45 = 384) PO2 ARTERIAL (BEAKER) (test code 138 mm Hg 80-90 H = 385) O2 SATURATION ARTERIAL (BEAKER) 98.8 % 96.0-97.0 H (test code = 386) HCO3 ARTERIAL (BEAKER) (test code 23 mmol/L 21-29 = 388) BASE EXCESS ARTERIAL (BEAKER) -0.1 mmol/L -2.0-3.0 (test code = 387) PATIENT TEMPERATURE (BEAKER) 38.0 (test code = 1818) FIO2 (BEAKER) (test code = 1819) 30.0 RETICULOCYTE [id number] 04:17:59 Test Item Value Reference Range Interpretation Comments RETICULOCYTE COUNT PCT (BEAKER) (test 0.9 % 0.5-1.8 code = 575) Group Supervisor Yard ID - 6000POCT-GLUCOSE [id number] 02:31:00 Test Item Value Reference Range Interpretation Comments POC-GLUCOSE METER 98 mg/dL 70-110 : [facility] (test code = [place], 1538) [address]: Group Supervisor Yard/Techni kota ID = [id number] for JOSE ALEJANDRO LEON BASIC METABOLIC [id number] 01:52:57 Test Item Value Reference Range Interpretation Comments SODIUM (BEAKER) 139 meq/L 136-145 (test code = 381) POTASSIUM 3.4 meq/L 3.5-5.1 L (BEAKER) (test code = 379) CHLORIDE (BEAKER) 105 meq/L 98-107 (test code = 382) CO2 (BEAKER) 23 meq/L 22-29 (test code = 355) BLOOD UREA 44 mg/dL 7-21 H NITROGEN (BEAKER) (test code = 354) CREATININE 3.58 mg/dL 0.57-1.25 H (BEAKER) (test code = 358) GLUCOSE RANDOM 98 mg/dL 70-105 (BEAKER) (test code = 652) CALCIUM (BEAKER) 8.8 mg/dL 8.4-10.2 (test code = 697) EGFR (BEAKER) 22 Interpretatio n of eGFR (test code = mL/min/1.73 values Stage De scription 1092) sq m Result G1 Kelly l or high >=90 G2 Mildly decreased 60-89 G3a Mildl y to moderately 45-5 9 G3b Moderately to s everely 30-44 G4 Severl y decreased 15-29 G5 Kidney failure <15Reported eGF R is based on the CKD-EPI 2020 equation that d oes not use a race coefficientEsti mated GFR is not as accur ate as Creatinine Noelle lj in predicting glom erular filtration rate . Estimated GFR is not appl icable for dialysis patien ts Group Supervisor Yard ID - BSPOCT-GLUCOSE [id number] 23:42:58 Test Item Value Reference Range Interpretation Comments POC-GLUCOSE METER 95 mg/dL 70-110 : TESTED A T [facility] 6720 (BEAKER) (test code = HETAL Fontanez [facility], 1538) 89963: Group Supervisor Yard/Techni kota ID = [id number] for SUGU , SHEENAMOL BLOOD GAS, [id number] 21:33:04 Test Item Value Reference Range Interpretation Comments PH ARTERIAL (BEAKER) (test code = 7.45 7.35-7.45 383) PCO2 ARTERIAL (BEAKER) (test code 36 mm Hg 35-45 = 384) PO2 ARTERIAL (BEAKER) (test code = 152 mm Hg 80-90 H 385) O2 SATURATION ARTERIAL (BEAKER) 99.0 % 96.0-97.0 H (test code = 386) HCO3 ARTERIAL (BEAKER) (test code 24 mmol/L 21-29 = 388) BASE EXCESS ARTERIAL (BEAKER) 1.0 mmol/L -2.0-3.0 (test code = 387) PATIENT TEMPERATURE (BEAKER) (test 38.6 code = 1818) FIO2 (BEAKER) (test code = 1819) 35.0 POCT-GLUCOSE [id number] 21:21:21 Test Item Value Reference Range Interpretation Comments POC-GLUCOSE METER 90 mg/dL 70-110 : TESTED A T [facility] 6720 (BEAKER) (test code = [place], 1538) [address]: Group Supervisor Yard/Techni kota ID = [id number] for CORKY LEONMOL BASIC METABOLIC [id number] 20:11:42 Test Item Value Reference Range Interpretation Comments SODIUM (BEAKER) 138 meq/L 136-145 (test code = 381) POTASSIUM 5.6 meq/L 3.5-5.1 H (BEAKER) (test code = 379) CHLORIDE (BEAKER) 105 meq/L 98-107 (test code = 382) CO2 (BEAKER) 23 meq/L 22-29 (test code = 355) BLOOD UREA 41 mg/dL 7-21 H NITROGEN (BEAKER) (test code = 354) CREATININE 3.48 mg/dL 0.57-1.25 H (BEAKER) (test code = 358) GLUCOSE RANDOM 93 mg/dL 70-105 (BEAKER) (test code = 652) CALCIUM (BEAKER) 8.2 mg/dL 8.4-10.2 L (test code = 697) EGFR (BEAKER) 23 Interpretatio n of eGFR (test code = mL/min/1.73 values Stage De scription 1092) sq m Result G1 Kelly l or high >=90 G2 Mildly decreased 60-89 G3a Mildl y to moderately 45-5 9 G3b Moderately to s everely 30-44 G4 Severl y decreased 15-29 G5 Kidney failure <15Reported eGF R is based on the CKD-EPI 2020 equation that d oes not use a race coefficientEsti mated GFR is not as accur ate as Creatinine Noelle lj in predicting glom erular filtration rate . Estimated GFR is not appl icable for dialysis patien ts Group Supervisor Yard ID - [id number] 20:09:16 Test Item Value Reference Range Interpretation Comments MAGNESIUM (BEAKER) (test code = 2.2 mg/dL 1.6-2.6 627) Group Supervisor Yard ID - [id number] 19:59:37 Test Item Value Reference Range Interpretation Comments PARTIAL THROMBOPLASTIN TIME 51.8 seconds 22.5-36.0 H (BEAKER) (test code = 760) POCT-GLUCOSE [id number] 18:03:53 Test Item Value Reference Range Interpretation Comments POC-GLUCOSE METER 86 mg/dL 70-110 : [facility] (BE[place]ER) (test code = [place], 1538) [address]: Group Supervisor Yard/Techni kota ID = [id number] for Marija Taylor Venous doppler legs [id number] 15:34:33Ejection FractionSLEH ECHO HEARTLAB MKCKESSON [facility] RosaCREATINE KINASE (CK) 2022-07-08 14:49:32 Test Item Value Reference Range Interpretation Comments CREATINE KINASE TOTAL (BEAKER) (test 144 U/L 29-200 code = 380) Group Supervisor Yard ID - MARIXA [id number] 14:23:16 Test Item Value Reference Range Interpretation Comments PROCALCITONIN (BEAKER) (test code 30.85 ng/mL <0.05 HH = 3036) SEPSIS RISK (ng/mL)Low: 0.05-0.50Intermediate: 0.51-2.00High: >=2.01 Urinalysis w/Microscopic + Reflex to [id number] 13:23:03 Test Item Value Reference Range Interpretation Comments Color, UA (test code Yellow = 5778-6) Clarity, UA (test Cloudy code = 5767-9) Specific Leonardo, UA 1.021 1.001-1.035 (test code = 5811-5) pH, UA (test code = 5.0 5.0-8.0 5803-2) Protein, UA (test 50 mg/dL Negative A code = 74342-0) Glucose, UA (test Negative Negative code = 365) Ketones, UA (test Negative Negative code = 3204-8) Bilirubin, UA (test Negative Negative code = 77269-4) Blood, UA (test code Negative Negative = 34559-0) Nitrite, UA (test Negative Negative code = 5802-4) Leukocytes, UA (test Moderate Negative A code = 5799-2) Urobilinogen, UA 0.2 mg/dL 0.2-1.0 (test code = 77254-6) RBC, UA (test code = 17 See_Comment [Autom ated 77132-7) message] The system which generated this result transmit kandice reference range : /HPF. The reference range was not used to interpret this result as normal/abnormal . WBC, UA (test code = 32 See_Comment [Autom ated 5821-4) message] The system which generated this result transmit kandice reference range : /HPF. The reference range was not used to interpret this result as normal/abnormal . Bacteria, UA (test None Seen code = 18030-4) Mucus (test code = Rare 8247-9) Squam Epithel, UA 17 See_Comment [Automate d (test code = 98056-2) messag e] The system which generated this result transmit kandice reference range : /HPF. The reference range was not used to interpret this result as normal/abnormal . Hyaline Casts, UA 105 See_Comment [Automate d (test code = 81841-4) messag e] The system which generated this result transmit kandice reference range : /LPF. The reference range was not used to interpret this result as normal/abnormal . Crystals, Urine (test None Seen code = 13383-3) Amorphous Crystals Moderate (test code = 42101-0) Specimen Source (test code = 2795) GRACIA (test code = GRACIA) Group Supervisor Yard ID - [auto]Group Supervisor Yard ID - tech Lab Interpretation Abnormal (test code = 10720-4) [facility]LEX URINE [id number] 13:23:03 Test Item Value Reference Range Interpretation Comments COLOR (BEAKER) (test code = 470) Yellow CLARITY (BEAKER) (test code = 469) Cloudy SPECIFIC GRAVITY UA (BEAKER) (test 1.021 1.001-1.035 code = 468) PH UA (BEAKER) (test code = 467) 5.0 5.0-8.0 PROTEIN UA (BEAKER) (test code = 50 mg/dL Negative A 464) GLUCOSE UA (BEAKER) (test code = Negative Negative 365) KETONES UA (BEAKER) (test code = Negative Negative 371) BILIRUBIN UA (BEAKER) (test code = Negative Negative 462) BLOOD UA (BEAKER) (test code = 461) Negative Negative NITRITE UA (BEAKER) (test code = Negative Negative 465) LEUKOCYTE ESTERASE UA (BEAKER) Moderate Negative A (test code = 466) UROBILINOGEN UA (BEAKER) (test code 0.2 mg/dL 0.2-1.0 = 463) RBC UA (BEAKER) (test code = 519) 17 /HPF WBC UA (BEAKER) (test code = 520) 32 /HPF BACTERIA (BEAKER) (test code = 517) None Seen MUCUS (BEAKER) (test code = 1574) Rare SQUAMOUS EPITHELIAL (BEAKER) (test 17 /HPF code = 516) HYALINE CASTS (BEAKER) (test code = 105 /LPF 514) CRYSTALS, URINE (BEAKER) (test code None Seen = 1521) AMORPHOUS CRYSTALS (BEAKER) (test Moderate code = 1584) SOURCE(BEAKER) (test code = 2795) Group Supervisor Yard ID - [auto]Group Supervisor Yard ID - [id number] 12:52:32 Test Item Value Reference Range Interpretation Comments PARTIAL THROMBOPLASTIN TIME 50.1 seconds 22.5-36.0 H (BEAKER) (test code = 760) RAD, ABDOMEN/KUB, 1 VIEW [id number] 12:47:00Reason for exam:->[facility] : 1990 Sex: MFINAL REPORT RAD, ABDOMEN/KUB, 1 VIEW AP INDICATION: Feeding tube placement COMPARISON: None TECHNIQUE: Limited portable radiograph of the lower chest and upper abdomen was acquired for purposes of evaluating tube placement FINDINGS/IMPRESSION:NG side-port overlies the stomach Signed: Joy Ospinaort Verified Date/Time: 07/08/2022 12:47:47 Reading Location: [address]Reading [address] HEMOGLOBIN [id number] 12:28:26 Test Item Value Reference Range Interpretation Comments HEMOGLOBIN A1C 5.3 % See_Comment [Automated m essage] ELECTROPHORESIS (BEAKER) The system which (test code = 3811) generated this result transmitted ref erence range: <=5.6%. The reference range was not used to int erpret this result as normal/abnormal . "The A1c is measured using a NGSP-certified method. HbA1c value equal to or greater than 6.5% as thediagnosis cutoff for diabetes. An HbA1c value of 5.7- 6.4% indicates increased risk for diabetes (prediabetes)."Group Supervisor Yard ID - ADMPOCT- GLUCOSE [id number] 12:22:36 Test Item Value Reference Range Interpretation Comments POC-GLUCOSE METER 79 mg/dL 70-110 : [facility] (test code = HETAL Fontanez [facility], 1538) [address]: Group Supervisor Yard/Techni kota ID = [id number] for Marija Taylor BASIC METABOLIC [id number] 11:13:20 Test Item Value Reference Range Interpretation Comments SODIUM (BEAKER) 139 meq/L 136-145 (test code = 381) POTASSIUM 3.2 meq/L 3.5-5.1 L (BEAKER) (test code = 379) CHLORIDE (BEAKER) 105 meq/L 98-107 (test code = 382) CO2 (BEAKER) 25 meq/L 22-29 (test code = 355) BLOOD UREA 37 mg/dL 7-21 H NITROGEN (BEAKER) (test code = 354) CREATININE 3.12 mg/dL 0.57-1.25 H (BEAKER) (test code = 358) GLUCOSE RANDOM 105 mg/dL 70-105 (BEAKER) (test code = 652) CALCIUM (BEAKER) 8.4 mg/dL 8.4-10.2 (test code = 697) EGFR (BEAKER) 26 Interpretatio n of eGFR (test code = mL/min/1.73 values Stage De scription 1092) sq m Result G1 Kelly l or high >=90 G2 Mildly decreased 60-89 G3a Mildl y to moderately 45-5 9 G3b Moderately to s everely 30-44 G4 Severl y decreased 15-29 G5 Kidney failure <15Reported eGF R is based on the CKD-EPI 2020 equation that d oes not use a race coefficientEsti mated GFR is not as accur ate as Creatinine Noelle calhoun in predicting glom erular filtration rate . Estimated GFR is not appl icable for dialysis patien ts Group Supervisor Yard ID - DEBRA [id number] 11:08:22 Test Item Value Reference Range Interpretation Comments MAGNESIUM (BEAKER) (test code = 2.3 mg/dL 1.6-2.6 627) Group Supervisor Yard ID - MARCIAFLO [id number] 10:23:09 Test Item Value Reference Range Interpretation Comments TRIGLYCERIDES (BEAKER) (test code = 104 mg/dL 540) TRIGLYCERIDE REFERENCE RANGELow Risk <150Borderline Risk 150-199High Risk 200-499Very High Risk >=500Operator ID Forrest MARIXA MPOCT-GLUCOSE [id number] 09:27:25 Test Item Value Reference Range Interpretation Comments POC-GLUCOSE METER 109 mg/dL 70-110 : TESTED A T [facility] 6720 (BEAKER) (test code = [place], 1538) [address]: Group Supervisor Yard/Techni kota ID = [id number] for ROS PARKS BASIC METABOLIC [id number] 08:57:28 Test Item Value Reference Range Interpretation Comments SODIUM (BEAKER) 138 meq/L 136-145 (test code = 381) POTASSIUM 3.4 meq/L 3.5-5.1 L (BEAKER) (test code = 379) CHLORIDE (BEAKER) 103 meq/L 98-107 (test code = 382) CO2 (BEAKER) 23 meq/L 22-29 (test code = 355) BLOOD UREA 34 mg/dL 7-21 H NITROGEN (BEAKER) (test code = 354) CREATININE 3.07 mg/dL 0.57-1.25 H (BEAKER) (test code = 358) GLUCOSE RANDOM 108 mg/dL 70-105 H (BEAKER) (test code = 652) CALCIUM (BEAKER) 8.7 mg/dL 8.4-10.2 (test code = 697) EGFR (BEAKER) 27 Interpretatio n of eGFR (test code = mL/min/1.73 values Stage De scription 1092) sq m Result G1 Kelly l or high >=90 G2 Mildly decreased 60-89 G3a Mildl y to moderately 45-5 9 G3b Moderately to s everely 30-44 G4 Severl y decreased 15-29 G5 Kidney failure <15Reported eGF R is based on the CKD-EPI 2020 equation that d oes not use a race coefficientEsti mated GFR is not as accur ate as Creatinine Noelle lj in predicting glom erular filtration rate . Estimated GFR is not appl icable for dialysis patien ts Group Supervisor Yard GAUTAM RICHARDSON [id number] 06:38:49 Test Item Value Reference Range Interpretation Comments PARTIAL THROMBOPLASTIN TIME 53.8 seconds 22.5-36.0 H (BEAKER) (test code = 760) VANCOMYCIN LEVEL, [id number] 06:22:24 Test Item Value Reference Range Interpretation Comments VANCOMYCIN RANDOM (BEAKER) (test 19.6 ug/mL code = 523) Reference Range: No NormalsOperator GAUTAM Clayton DEBRA LHEPATIC FUNCTION [id number] 05:50:01 Test Item Value Reference Range Interpretation Comments TOTAL PROTEIN (BEAKER) (test code = 6.1 gm/dL 6.0-8.3 770) ALBUMIN (BEAKER) (test code = 1145) 3.3 g/dL 3.5-5.0 L BILIRUBIN TOTAL (BEAKER) (test code 1.9 mg/dL 0.2-1.2 H = 377) BILIRUBIN DIRECT (BEAKER) (test 1.1 mg/dL 0.1-0.5 H code = 706) ALKALINE PHOSPHATASE (BEAKER) (test 29 U/L 40-150 L code = 346) AST (SGOT) (BEAKER) (test code = 22 U/L 5-34 353) ALT (SGPT) (BEAKER) (test code = 20 U/L 6-55 347) Group Supervisor Yard ID - DEBRA [id number] 05:50:01 Test Item Value Reference Range Interpretation Comments MAGNESIUM (BEAKER) (test code = 2.3 mg/dL 1.6-2.6 627) Group Supervisor Yard ID - DEBRA [id number] 05:50:01 Test Item Value Reference Range Interpretation Comments PHOSPHORUS (BEAKER) (test code = 2.3 mg/dL 2.3-4.7 604) Group Supervisor Yard ID - DEBRA LHIGH SENSITIVITY TROPONIN [id number] 05:45:44 Test Item Value Reference Range Interpretation Comments HIGH SENSITIVITY 444 pg/ml See_Comment H [Automated message] TROPONIN I (test code The sy stem which = [id number]) generated this result transmitted ref erence range: <=35. Th e reference range was not used to int erpret this result as normal/abnormal . Group Supervisor Yard ID Forrest RICHARDSON LThe [employer] STAT High Sensitivity Troponin-I results should be used in conjunction with other diagnostic information such as ECG, clinical observations and information, and patient symptoms to aid in the diagnosis of SD.B-TYPE NATRIURETIC FACTOR (BNP)2022-07-08 05:45:41 Test Item Value Reference Range Interpretation Comments B-TYPE NATRIURETIC PEPTIDE (BEAKER) 221 pg/mL 0-100 H (test code = 700) Group Supervisor Yard ID Forrest RICHARDSON LCBC W/PLT COUNT & AUTO [id number] 05:27:47 Test Item Value Reference Range Interpretation Comments WHITE BLOOD CELL COUNT (BEAKER) 15.9 K/ L 3.5-10.5 H (test code = 775) RED BLOOD CELL COUNT (BEAKER) 4.43 M/ L 4.63-6.08 L (test code = 761) HEMOGLOBIN (BEAKER) (test code = 11.8 GM/DL 13.7-17.5 L 410) HEMATOCRIT (BEAKER) (test code = 35.8 % 40.1-51.0 L 411) MEAN CORPUSCULAR VOLUME (BEAKER) 80.8 fL 79.0-92.2 (test code = 753) MEAN CORPUSCULAR HEMOGLOBIN 26.6 pg 25.7-32.2 (BEAKER) (test code = 751) MEAN CORPUSCULAR HEMOGLOBIN CONC 33.0 GM/DL 32.3-36.5 (BEAKER) (test code = 752) RED CELL DISTRIBUTION WIDTH 15.2 % 11.6-14.4 H (BEAKER) (test code = 412) PLATELET COUNT (BEAKER) (test 227 K/CU MM 150-450 code = 756) MEAN PLATELET VOLUME (BEAKER) 11.0 fL 9.4-12.4 (test code = 754) NUCLEATED RED BLOOD CELLS 0 /100 WBC 0-0 (BEAKER) (test code = 413) NEUTROPHILS RELATIVE PERCENT 85 % (BEAKER) (test code = 429) LYMPHOCYTES RELATIVE PERCENT 10 % (BEAKER) (test code = 430) MONOCYTES RELATIVE PERCENT 4 % (BEAKER) (test code = 431) EOSINOPHILS RELATIVE PERCENT 0 % (BEAKER) (test code = 432) BASOPHILS RELATIVE PERCENT 0 % (BEAKER) (test code = 437) NEUTROPHILS ABSOLUTE COUNT 13.57 K/ L 1.78-5.38 H (BEAKER) (test code = 670) LYMPHOCYTES ABSOLUTE COUNT 1.55 K/ L 1.32-3.57 (BEAKER) (test code = 414) MONOCYTES ABSOLUTE COUNT (BEAKER) 0.65 K/ L 0.30-0.82 (test code = 415) EOSINOPHILS ABSOLUTE COUNT 0.02 K/ L 0.04-0.54 L (BEAKER) (test code = 416) BASOPHILS ABSOLUTE COUNT (BEAKER) 0.03 K/ L 0.01-0.08 (test code = 417) IMMATURE GRANULOCYTES-RELATIVE 0 % 0-1 PERCENT (BEAKER) (test code = 2801) BASIC METABOLIC [id number] 00:34:36 Test Item Value Reference Range Interpretation Comments SODIUM (BEAKER) 139 meq/L 136-145 (test code = 381) POTASSIUM 3.2 meq/L 3.5-5.1 L (BEAKER) (test code = 379) CHLORIDE (BEAKER) 104 meq/L 98-107 (test code = 382) CO2 (BEAKER) 24 meq/L 22-29 (test code = 355) BLOOD UREA 30 mg/dL 7-21 H NITROGEN (BEAKER) (test code = 354) CREATININE 2.63 mg/dL 0.57-1.25 H (BEAKER) (test code = 358) GLUCOSE RANDOM 105 mg/dL 70-105 (BEAKER) (test code = 652) CALCIUM (BEAKER) 8.7 mg/dL 8.4-10.2 (test code = 697) EGFR (BEAKER) 33 Interpretatio n of eGFR (test code = mL/min/1.73 values Stage De scription 1092) sq m Result G1 Kelly l or high >=90 G2 Mildly decreased 60-89 G3a Mildl y to moderately 45-5 9 G3b Moderately to s everely 30-44 G4 Severl y decreased 15-29 G5 Kidney failure <15Reported eGF R is based on the CKD-EPI 2020 equation that d oes not use a race coefficientEsti mated GFR is not as accur ate as Creatinine Noelle lj in predicting glom erular filtration rate . Estimated GFR is not appl icable for dialysis patien ts Group Supervisor Yard ID - DEBRA [id number] 00:29:18 Test Item Value Reference Range Interpretation Comments PARTIAL THROMBOPLASTIN TIME 39.9 seconds 22.5-36.0 H (BEAKER) (test code = 760) POCT-GLUCOSE [id number] 23:51:52 Test Item Value Reference Range Interpretation Comments POC-GLUCOSE METER 96 mg/dL 70-110 : TESTED A T [facility] 6720 (BEAKER) (test code = HETAL Fontanez [facility], 1538) [address]: Group Supervisor Yard/Techni kota ID = [id number] for MORE DAPHNE NAVAS BLOOD GAS, [id number] 22:20:28 Test Item Value Reference Range Interpretation Comments PH ARTERIAL (BEAKER) (test code = 7.44 7.35-7.45 383) PCO2 ARTERIAL (BEAKER) (test code 39 mm Hg 35-45 = 384) PO2 ARTERIAL (BEAKER) (test code = 198 mm Hg 80-90 H 385) O2 SATURATION ARTERIAL (BEAKER) 99.4 % 96.0-97.0 H (test code = 386) HCO3 ARTERIAL (BEAKER) (test code 26 mmol/L 21-29 = 388) BASE EXCESS ARTERIAL (BEAKER) 1.9 mmol/L -2.0-3.0 (test code = 387) PATIENT TEMPERATURE (BEAKER) (test 38.3 code = 1818) FIO2 (BEAKER) (test code = 1819) 90.0 [id number] 20:16:47 Test Item Value Reference Range Interpretation Comments MAGNESIUM (BEAKER) (test code = 1.9 mg/dL 1.6-2.6 627) Group Supervisor Yard ID - CHANTELL [id number] 18:49:59 Test Item Value Reference Range Interpretation Comments PARTIAL THROMBOPLASTIN TIME 36.0 seconds 22.5-36.0 (BEAKER) (test code = 760) LIPID [id number] 18:16:50 Test Item Value Reference Range Interpretation Comments TRIGLYCERIDES (BEAKER) (test code = 65 mg/dL 540) CHOLESTEROL (BEAKER) (test code = 114 mg/dL 631) HDL CHOLESTEROL (BEAKER) (test code 34 mg/dL = 976) LDL CHOLESTEROL CALCULATED (BEAKER) 67 mg/dL (test code = 633) Triglyceride Reference Range: Low Risk <150 Borderline 150-199 High Risk 200- 499 Very High Risk >=500Cholesterol Reference Range: Low Risk <200 Borderline 200-239 High Risk >240HDL Cholesterol Reference Range: Low Risk >=60 High Risk <40LDL Cholesterol Reference Range: Optimal <100 Near Optimal 100-129 Borderline 130-159 High 160-189 Very High >=190 Group Supervisor Yard ID - BSPOCT-GLUCOSE [id number] 18:08:47 Test Item Value Reference Range Interpretation Comments POC-GLUCOSE METER 113 mg/dL 70-110 H : TESTED A T [facility] 6720 (BEAKER) (test code = HETAL [place], 1538) [address]: Group Supervisor Yard/Techni kota ID = [id number] for Kristine SantanaXiomaraArline Respiratory Panel [id number] 17:29:17 Test Item Value Reference Range Interpretation Comments Human Metapneumovirus Not detected Not detected, (test code = 50434-8) Equivocal Rhinovirus (test code = Not detected Not detected, 83555-1) Equivocal INFLUENZA A (NO Not detected Not detected, SUBTYPE) (test code = Equivocal 04510-5) Influenza A subtype H1 (test code = 67182-4) Influenza A Subtype H3 (test code = 51218-4) Influenza A Subtype H1-2009 (test code = 04913-7) Influenza B (test code Not detected Not detected, = 66821-7) Equivocal Respiratory Syncytial Not detected Not detected, Virus (test code = Equivocal 53020-9) Parainfluenza Virus 1 Not detected Not detected, (test code = 48821-6) Equivocal Parainfluenza Virus 2 Not detected Not detected, (test code = 54993-9) Equivocal Parainfluenza virus 3 Not detected Not detected, (test code = 26682-4) Equivocal Parainfluenza Virus 4 Not detected Not detected, (test code = 80531-5) Equivocal Adenovirus (test code = Not detected Not detected, 63717-7) Equivocal Coronavirus 229E (test Not detected Not detected, code = 92385-0) Equivocal Coronavirus HKU1 (test Not detected Not detected, code = 69047-2) Equivocal Coronavirus NL63 (test Not detected Not detected, code = 43424-5) Equivocal Coronavirus OC43 (test Not detected Not detected, code = 67185-8) Equivocal Bordetella Pertussis Not detected Not detected, (test code = 99585-5) Equivocal Chlamydophila Not detected Not detected, Pneumoniae (test code = Equivocal 55809-0) Mycoplasma Pneumoniae Not detected Not detected, (test code = 68170-0) Equivocal Severe Acute Not detected Not detected, Kqdnrqqawqf-EwM-1 (test Equivocal code = 15104-2) Bordtella Parapertussis Not detected Not detected, (test code = 13090-3) Equivocal GRACIA (test code = GRACIA) Other viruses and bacteria not targeted by this PCR panel cannot be excluded; therefore clinical correlation and follow up of serology, culture results, and other molecular studies is required. The results are not intended to be used as the sole means for clinical diagnosis or patient management decisions. This sample was tested at the [facility] Molecular Diagnostics Laboratory using the SearchMan SEOArray Respiratory Panel. It is FDA cleared and has been verified and approved by the [facility] Molecular Diagnostics [facility] for clinical use on nasopharyngeal swab specimens. The performance of the FilmArray RP has not been established in individuals who received influenza vaccine. Recent administration of a nasal influenza vaccine may cause false positive results for Influenza A and/orInfluenza B. [facility] [id number] 17:29:17 Test Item Value Reference Range Interpretation Comments HUMAN METAPNEUMOVIRUS Not detected Not detected, (BEAKER) (test code = 2683) Equivocal RHINOVIRUS (BEAKER) (test Not detected Not detected, code = 2684) Equivocal INFLUENZA A (BEAKER) (test Not detected Not detected, code = 2685) Equivocal INFLUENZA A (NO SUBTYPE) (test code = 3606) INFLUENZA A SUBTYPE H1 (BEAKER) (test code = 2686) INFLUENZA A SUBTYPE H3 (BEAKER) (test code = 2687) INFLUENZA A SUBTYPE H1-2009 (BEAKER) (test code = 3198) INFLUENZA B (BEAKER) (test Not detected Not detected, code = 2688) Equivocal RESPIRATORY SYNCYTIAL VIRUS Not detected Not detected, (BEAKER) (test code = 3199) Equivocal PARAINFLUENZA VIRUS 1 Not detected Not detected, (BEAKER) (test code = 2691) Equivocal PARAINFLUENZA VIRUS 2 Not detected Not detected, (BEAKER) (test code = 2692) Equivocal PARAINFLUENZA VIRUS 3 Not detected Not detected, (BEAKER) (test code = 2693) Equivocal PARAINFLUENZA VIRUS 4 Not detected Not detected, (BEAKER) (test code = 3200) Equivocal ADENOVIRUS (BEAKER) (test Not detected Not detected, code = 2694) Equivocal CORONAVIRUS 229E (BEAKER) Not detected Not detected, (test code = 3201) Equivocal CORONAVIRUS HKU1 (BEAKER) Not detected Not detected, (test code = 3202) Equivocal CORONAVIRUS NL63 (BEAKER) Not detected Not detected, (test code = 3203) Equivocal CORONAVIRUS OC43 (BEAKER) Not detected Not detected, (test code = 3204) Equivocal BORDETELLA PERTUSSIS Not detected Not detected, (BEAKER) (test code = 3205) Equivocal CHLAMYDOPHILA PNEUMONIAE Not detected Not detected, (BEAKER) (test code = 3206) Equivocal MYCOPLASMA PNEUMONIAE Not detected Not detected, (BEAKER) (test code = 3207) Equivocal SEVERE ACUTE RESPIRATORY Not detected Not detected, [id number] Equivocal (test code = 8145084) BORDETELLA PARAPERTUSSIS Not detected Not detected, (BKR) (test code = 0621470) Equivocal Other viruses and bacteria not targeted by this PCR panel cannot be excluded; therefore clinical correlation and follow up of serology, culture results, and other molecular studies is required. The results are not intended to be used as the sole means for clinical diagnosis or patient management decisions. This sample was tested at the [facility] Molecular Diagnostics Laboratory using the Leonar3Do FilmArray Respiratory Panel. It is FDA cleared and has been verified and approved by the [facility] Molecular Diagnostics Laboratory for clinical use on nasopharyngeal swab specimens.The performance of the FilmArrayRP has not been established in individuals who received influenza vaccine. Recent administration of a nasal influenza vaccine may cause false positive results for Influenza A and/orInfluenza B.[id number] 16:57:26 Test Item Value Reference Range Interpretation Comments PARTIAL THROMBOPLASTIN TIME 33.2 seconds 22.5-36.0 (BEAKER) (test code = 760) BASIC METABOLIC [id number] 16:57:09 Test Item Value Reference Range Interpretation Comments SODIUM (BEAKER) 139 meq/L 136-145 (test code = 381) POTASSIUM 3.2 meq/L 3.5-5.1 L (BEAKER) (test code = 379) CHLORIDE (BEAKER) 104 meq/L 98-107 (test code = 382) CO2 (BEAKER) 24 meq/L 22-29 (test code = 355) BLOOD UREA 24 mg/dL 7-21 H NITROGEN (BEAKER) (test code = 354) CREATININE 2.01 mg/dL 0.57-1.25 H (BEAKER) (test code = 358) GLUCOSE RANDOM 108 mg/dL 70-105 H (BEAKER) (test code = 652) CALCIUM (BEAKER) 8.6 mg/dL 8.4-10.2 (test code = 697) EGFR (BEAKER) 45 Interpretatio n of eGFR (test code = mL/min/1.73 values Stage De scription 1092) sq m Result G1 Kelly l or high >=90 G2 Mildly decreased 60-89 G3a Mildl y to moderately 45-5 9 G3b Moderately to s everely 30-44 G4 Severl y decreased 15-29 G5 Kidney failure <15Reported eGF R is based on the CKD-EPI 2021 equation that d oes not use a race coefficientEsti mated GFR is not as accur ate as Creatinine Noelle calhoun in predicting glom erular filtration rate . Estimated GFR is not appl icable for dialysis patien ts Group Supervisor Yard ID - BSBLOOD GAS, [id number] 16:06:58 Test Item Value Reference Range Interpretation Comments PH ARTERIAL (BEAKER) (test code = 7.43 7.35-7.45 383) PCO2 ARTERIAL (BEAKER) (test code 40 mm Hg 35-45 = 384) PO2 ARTERIAL (BEAKER) (test code = 146 mm Hg 80-90 H 385) O2 SATURATION ARTERIAL (BEAKER) 98.9 % 96.0-97.0 H (test code = 386) HCO3 ARTERIAL (BEAKER) (test code 26 mmol/L 21-29 = 388) BASE EXCESS ARTERIAL (BEAKER) 1.8 mmol/L -2.0-3.0 (test code = 387) PATIENT TEMPERATURE (BEAKER) (test 38.0 code = 1818) FIO2 (BEAKER) (test code = 1819) 90.0 2D Echo W/Doppler(CW/PW/Color)2022-07-07 13:57:58Ejection FractionSLEH ECHO HEARTLAB MKCKESSON [facility], urine 2022-07-07 12:47:30 Test Item Value Reference Range Interpretation Comments Barbiturate Screen Negative Negative (test code = 39028-9) Benzodiazepine Screen Positive Negative A (test code = 99747-0) Cocaine (Metab.) Negative Negative Screen (test code = 3397-7) Methadone Screen (test Negative Negative code = 58011-1) Opiate Screen (test Negative Negative code = 77038-0) Cannabinoid Screen Negative Negative (test code = 10290-2) Amph/Methamph Screen Negative Negative (test code = 13344-1) Phencyclidine Screen Negative Negative (test code = 90658-4) pH, UA (test code = 6.5 5.0-8.0 5803-2) GRACIA (test code = GRACIA) DRUG CUTOFF CONC.Cocaine 300 ng/mL Cannabinoid 50 ng/mLBenzodiazepine 200 ng/mLBarbiturate 200 ng/mLPhencyclidine 25 ng/mLOpiate 300 ng/mLMethadone 300 ng/mLAmphetamine/ 1000 ng/mL Methamphetamine This assay provides an unconfirmed qualitative test result for the clinical management of patients in emergency situations. Chain of custody not maintained. Some pulu-url-bwwlsky medications, as well as adulterants, may cause inaccurate results. Clinical correlation should be applied. A more comprehensive drug screen or confirmation of a detected drug may be performed upon request.Group Supervisor Yard ID - MITCHOperator ID - [auto] Lab Interpretation Abnormal (test code = 29493-8) [facility], [id number] 12:47:30 Test Item Value Reference Range Interpretation Comments BARBITURATE URINE (BEAKER) (test Negative Negative code = 725) BENZODIAZEPINE SCREEN URINE (BEAKER) Positive Negative A (test code = 726) COCAINE (METAB.) SCREEN (BEAKER) Negative Negative (test code = 1164) METHADONE SCREEN (BEAKER) (test code Negative Negative = 1436) OPIATE SCREEN URINE (BEAKER) (test Negative Negative code = 734) CANNABINOID SCREEN URINE (BEAKER) Negative Negative (test code = 727) AMPH/METHAMPH SCREEN (BEAKER) (test Negative Negative code = 1438) PHENCYCLIDINE SCREEN URINE (BEAKER) Negative Negative (test code = 608) PH UA (BEAKER) (test code = 467) 6.5 5.0-8.0 DRUG CUTOFF CONC.Cocaine 300 ng/mL Cannabinoid 50 ng/mLBenzodiazepine 200 ng/mLBarbiturate 200 ng/mLPhencyclidine 25 ng/mLOpiate 300 ng/mLMethadone 300 ng/mLAmphetamine/ 1000 ng/mL MethamphetamineThisassay provides an unconfirmed qualitative test result for the clinical management of patients in emergency situations. Chain of custody not maintained. Some kvvm-pcg-lpardqf medications, as well as adulterants, may cause inaccurate results. Clinical correlation should be applied. A more comprehensive drug screen or confirmation of a detected drug may be performed upon request.Group Supervisor Yard ID - MITCHOperator ID - [auto]POCT-GLUCOSE [id number] 12:43:36 Test Item Value Reference Range Interpretation Comments POC-GLUCOSE METER 112 mg/dL 70-110 H : TESTED A T [facility] 6720 (BEAKER) (test code = HETAL [place], 1538) [address]: Group Supervisor Yard/Techni kota ID = [id number] for Tracy Brown B-TYPE NATRIURETIC FACTOR (BNP)2022-07-07 10:45:04 Test Item Value Reference Range Interpretation Comments B-TYPE NATRIURETIC PEPTIDE (BEAKER) 860 pg/mL 0-100 H (test code = 700) Group Supervisor Yard ID - CHANTELL MCBC W/PLT COUNT & AUTO [id number] 10:28:07 Test Item Value Reference Range Interpretation Comments WHITE BLOOD CELL COUNT (BEAKER) 24.0 K/ L 3.5-10.5 H (test code = 775) RED BLOOD CELL COUNT (BEAKER) 5.18 M/ L 4.63-6.08 (test code = 761) HEMOGLOBIN (BEAKER) (test code = 14.3 GM/DL 13.7-17.5 410) HEMATOCRIT (BEAKER) (test code = 41.7 % 40.1-51.0 411) MEAN CORPUSCULAR VOLUME (BEAKER) 80.5 fL 79.0-92.2 (test code = 753) MEAN CORPUSCULAR HEMOGLOBIN 27.6 pg 25.7-32.2 (BEAKER) (test code = 751) MEAN CORPUSCULAR HEMOGLOBIN CONC 34.3 GM/DL 32.3-36.5 (BEAKER) (test code = 752) RED CELL DISTRIBUTION WIDTH 15.1 % 11.6-14.4 H (BEAKER) (test code = 412) PLATELET COUNT (BEAKER) (test 342 K/CU MM 150-450 code = 756) MEAN PLATELET VOLUME (BEAKER) 11.1 fL 9.4-12.4 (test code = 754) NUCLEATED RED BLOOD CELLS 0 /100 WBC 0-0 (BEAKER) (test code = 413) (CELLAVISION MANUAL DIFF)2022-07-07 10:28:07 Test Item Value Reference Range Interpretation Comments NEUTROPHILS - REL 89 % (CELLAVISION)(BEAKER) (test code = 2816) LYMPHOCYTES - REL 3 % (CELLAVISION)(BEAKER) (test code = 2817) MONOCYTES - REL 3 % (CELLAVISION)(BEAKER) (test code = 2818) BANDS - REL (CELLAVISION)(BEAKER) 5 % 0-10 (test code = 2826) NEUTROPHILS - ABS 21.36 K/ul 1.78-5.38 H (CELLAVISION)(BEAKER) (test code = 2830) LYMPHOCYTES - ABS 0.72 K/ul 1.32-3.57 L (CELLAVISION)(BEAKER) (test code = 2831) MONOCYTES - ABS 0.72 K/uL 0.30-0.82 (CELLAVISION)(BEAKER) (test code = 2832) BANDS - ABS (CELLAVISION)(BEAKER) 1.20 K/uL 0.00-0.80 H (test code = 2840) TOTAL COUNTED (BEAKER) (test code 100 = 1351) PLT MORPHOLOGY (BEAKER) (test Normal code = 486) SMUDGE CELLS (BEAKER) (test code Present = 1371) POLYCHROMATOPHILLIC RBCS(BEAKER) 2+ moderate (test code = 478) ANISOCYTOSIS (BEAKER) (test code 1+ few = 961) MICROCYTES (BEAKER) (test code = 1+ few 965) POIKILOCYTES (BEAKER) (test code 1+ few = 966) SPHEROCYTES (BEAKER) (test code = 1+ few 768) OVALOCYTES (BEAKER) (test code = 1+ few 477) PLATELET CONCENTRATION Adequate (CELLAVISION)(BEAKER) (test code = 3438) Group Supervisor Yard ID - Giovany Dato-onUser comments: Slide comments:RAD, ABDOMEN/KUB, 1 VIEW [id number] 09:56:00Reason for exam:->[facility] : 1990 Sex: MFINAL REPORT RAD, ABDOMEN/KUB, 1 VIEW AP CLINICAL INDICATION: ogt placement COMPARISON: None TECHNIQUE: Single, frontal radiograph of the abdomen. FINDINGS:NG side-port overlies the stomach.The bowel gas pattern is nonspecific, but nonobstructive. Stool is present throughout the colon. Eval uation for free air is limited by portable supine technique. Within these limitations, no free air is identified. Signed: Joy Ospina MDReport Verified Date/Time: 07/07/2022 09:56:50 Reading Location: [address] Reading Room TSH/FREE T4 IF [id number] 09:20:17 Test Item Value Reference Range Interpretation Comments THYROID STIMULATING HORMONE 1.327 uIU/mL 0.350-4.940 (BEAKER) (test code = 772) Group Supervisor Yard ID - CHANTELL [id number] 09:20:00 Test Item Value Reference Range Interpretation Comments CORTISOL, TOTAL (BEAKER) (test 24.7 ug/dL 3.7-19.4 H code = 2755) Group Supervisor Yard ID - CHANTELL MHIGH SENSITIVITY TROPONIN [id number] 09:09:08 Test Item Value Reference Range Interpretation Comments HIGH SENSITIVITY 501 pg/ml See_Comment HH [Automated message] TROPONIN I (test code The sy stem which = [id number]) generated this result transmitted ref erence range: <=35. Th e reference range was not used to int erpret this result as normal/abnormal . Group Supervisor Yard ID - CHANTELL MThe MOBILE ELECT[employer] INSTALLER STAT High Sensitivity Troponin-I results should be used in conjunction with other diagnostic information such as ECG, clinical observations and information, and patient symptoms to aid in the diagnosis of SD.LACTIC ACID, [id number] 09:07:15 Test Item Value Reference Range Interpretation Comments LACTATE BLOOD VENOUS (2) (BEAKER) 1.78 mmol/L 0.50-2.20 (test code = 2872) Group Supervisor Yard ID - CHANTELL MBLOOD GAS, [id number] 09:02:23 Test Item Value Reference Range Interpretation Comments PH VENOUS (BEAKER) (test code = 7.34 7.32-7.42 701) PCO2 VENOUS (BEAKER) (test code = 61 mm Hg 41-51 H 755) PO2 VENOUS (BEAKER) (test code = 46 mm Hg 25-40 H 702) O2 SATURATION VENOUS (BEAKER) 74.2 % 40.0-70.0 H (test code = 703) HCO3 VENOUS (BEAKER) (test code = 32 mmol/L 21-29 H 705) BASE EXCESS VENOUS (BEAKER) (test 4.3 mmol/L -2.0-3.0 H code = 704) PATIENT TEMPERATURE (BEAKER) (test 38.1 code = 1818) FIO2 (BEAKER) (test code = 1819) 100.0 CALCIUM, [id number] 09:02:22 Test Item Value Reference Range Interpretation Comments CALCIUM IONIZED (BEAKER) (test 1.06 mmol/L 1.12-1.27 L code = 698) PH, BLOOD (BEAKER) (test code = 7.35 1810) COMPREHENSIVE METABOLIC [id number] 08:59:37 Test Item Value Reference Range Interpretation Comments TOTAL PROTEIN 6.6 gm/dL 6.0-8.3 (BEAKER) (test code = 770) ALBUMIN (BEAKER) 3.7 g/dL 3.5-5.0 (test code = 1145) ALKALINE 34 U/L 40-150 L PHOSPHATASE (BEAKER) (test code = 346) BILIRUBIN TOTAL 1.3 mg/dL 0.2-1.2 H (BEAKER) (test code = 377) SODIUM (BEAKER) 142 meq/L 136-145 (test code = 381) POTASSIUM (BEAKER) 2.9 meq/L 3.5-5.1 L (test code = 379) CHLORIDE (BEAKER) 102 meq/L 98-107 (test code = 382) CO2 (BEAKER) (test 29 meq/L 22-29 code = 355) BLOOD UREA 19 mg/dL 7-21 NITROGEN (BEAKER) (test code = 354) CREATININE 2.02 mg/dL 0.57-1.25 H (BEAKER) (test code = 358) GLUCOSE RANDOM 95 mg/dL 70-105 (BEAKER) (test code = 652) CALCIUM (BEAKER) 8.7 mg/dL 8.4-10.2 (test code = 697) AST (SGOT) 36 U/L 5-34 H (BEAKER) (test code = 353) ALT (SGPT) 36 U/L 6-55 (BEAKER) (test code = 347) EGFR (BEAKER) 45 Interpretatio n of eGFR (test code = 1092) mL/min/1.[address] age Description sq m Result G1 Kelly l or high >=90 G2 Mildly decreased 60-89 G3a Mildl y to moderately 45-5 9 G3b Moderately to s everely 30-44 G4 Severl y decreased 15-29 G5 Kidney failure <15Reported eGF R is based on the CKD-EPI 2020 equation that d oes not use a race coefficientEsti mated GFR is not as accur ate as Creatinine Noelle lj in predicting glom erular filtration rate . Estimated GFR is not appl icable for dialysis patien ts Group Supervisor Yard ID - CHANTELL [id number] 08:59:37 Test Item Value Reference Range Interpretation Comments MAGNESIUM (BEAKER) (test code = 1.6 mg/dL 1.6-2.6 627) Group Supervisor Yard ID - CHANTELL [id number] 08:59:37 Test Item Value Reference Range Interpretation Comments PHOSPHORUS (BEAKER) (test code = 3.3 mg/dL 2.3-4.7 604) Group Supervisor Yard ID - CHANTELL MPROTHROMBIN TIME/[id number] 08:53:29 Test Item Value Reference Range Interpretation Comments PROTIME (BEAKER) 15.0 seconds 11.9-14.2 H (test code = 759) INR (BEAKER) (test 1.20 See_Comment [Automat ed message] code = 370) The system [employer] generated this result transmitted ref erence range: <=5.90. The reference range was not used to int erpret this result as normal/abnormal . RECOMMENDED COUMADIN/WARFARIN INR THERAPY RANGESSTANDARD DOSE: 2.0 - 3.0 Includes: PROPHYLAXIS for venous thrombosis, systemic embolization; TREATMENT for venous thrombosis and/or pulmonary embolus.HIGH RISK: Target INR is 2.5-3.5 for patients with mechanical heart valves.RAD, CHEST, 1 VIEW, NON [id number] 08:18:00Reason for exam:->[facility] : 1990 Sex: MFINAL REPORT RAD, CHEST, 1 VIEW, NON DEPT INDICATION: intubation COMPARISON: Prior day's exam FINDINGS: Portable frontal view of the chest. IMPRESSION: Support Lines: ET tube tip is 4 cm superior to the shaylee. NG tube descends below the diaphragm. Lungs and pleura: Right greater than left airspace disease. No significant pneumothorax. Heart and mediastinum: Normal contours. Stable surgical changes. Additional findings: None. Signed: Joy Ospina Verified Date/Time: 208:18:41 Reading Location: [address] Reading Room
--- NOTE | 2022-07-20 20:34 | RAD REPORT ---
EXAM DESCRIPTION: Uriel Single View07/20/2022 8:11 pm CLINICAL HISTORY: sob COMPARISON: July 07, 2022 FINDINGS: The lungs appear clear of acute infiltrate. The heart is moderately enlarged IMPRESSION: No acute abnormalities displayed
[2022-07-20 21:33] LABS: Absolute Lymphocytes (CBC) 1.6 K/uL (0.7-4.9); Hematocrit 45.7 % (39.6-49.0); Lymphocytes % 12.7 % (15.3-44.8); MCV 81.2 fL (80-100); MPV 8.7 fL (7.6-11.3); RBC Red Blood Cell Count 5.63 M/uL (4.33-5.43)
[2022-07-20 21:53] LABS: Potassium 4.2 mmol/L (3.5-5.1)
[2022-07-20 21:57] LABS: Troponin High Sensitivity 330.1 pg/mL (<58.9)
--- NOTE | 2022-07-20 22:11 | EDPHYS ---
Physician Documentation [facility] Name: Jameel Patel Age: 31 yrs Sex: Male : 1990 Arrival Date: 07/20/2022 Time: 19:49 Bed 6 Private MD: ED Physician Leonidas Werner HPI: 07/20 20:08 This 31 yrs old Male presents to ER via Unassigned with complaints of leg weakness and sp3 low pottassium. 20:08 31-year-old male with a history of hypertensive urgency he was recently seen here on spJuly 06 and intubated and transferred to [facility] for hypertensive crisis and NSTEMI now presents today for chief complaint lower extremity weakness bilaterally that has been progressively getting worse over the last 48 hours. Patient denies shortness of breath or chest pain currently. He states that he feels like "his potassium is low" because this is how he felt the last time it was a slow. He denies on review of systems any fever, back pain, abdominal pain, nausea, vomiting, diarrhea, rash, urinary frequency, polyuria, weight gain, or any other symptoms at this time.. Historical: - Allergies: 20:22 NKDA; vc1 - Home Meds: 20:22 metoprolol tartrate 100 mg Oral tab 1 tab 2 times per day [Active]; losartan 50 mg oral vc1 tab 1 tab once daily [Active]; furosemide 40 mg Oral tab 1 tab 2 times per day [Active]; spironolactone 25 mg Oral tab 1 tab once daily [Active]; - PMHx: 20:22 Hypertension; Congestive heart failure; vc1 - PSHx: 20:22 None; vc1 - Immunization history:: Adult Immunizations up to date, Client reports receiving the Pepito \\T\\ Pepito single-dose vaccine. - Social history:: Smoking status: Patient reports use of chewing tobacco. ROS: 20:10 Constitutional: Negative for fever, chills, and weight loss, Eyes: Negative for injury, sp3 pain, redness, and discharge, ENT: Negative for injury, pain, and discharge, Neck: Negative for injury, pain, and swelling, Cardiovascular: Negative for chest pain, palpitations, and edema, Respiratory: Negative for shortness of breath, cough, wheezing, and pleuritic chest pain, Abdomen/GI: Negative for abdominal pain, nausea, vomiting, diarrhea, and constipation, Back: Negative for injury and pain, MS/Extremity: Negative for injury and deformity, Skin: Negative for injury, rash, and discoloration, Psych: Negative for depression, anxiety, suicide ideation, homicidal ideation, and hallucinations, Allergy/Immunology: Negative for hives, rash, and allergies, Endocrine: Negative for neck swelling, polydipsia, polyuria, polyphagia, and marked weight changes. 20:10 Neuro: Positive for 20:10 Neuro: Positive for weakness. 20:10 All other systems are negative. 20:10 All other systems are negative. Exam: 20:10 Constitutional: This is a well developed, well nourished patient who is awake, alert, sp3 and in no acute distress. Head/Face: Normocephalic, atraumatic. Eyes: Pupils equal round and reactive to light, extra-ocular motions intact. Lids and lashes normal. Conjunctiva and sclera are non-icteric and not injected. Cornea within normal limits. Periorbital areas with no swelling, redness, or edema. ENT: Nares patent. No nasal discharge, no septal abnormalities noted. External auditory canals are clear. Oropharynx with no redness, swelling, or masses, exudates, or evidence of obstruction, uvula midline. Mucous membranes moist. Neck: Trachea midline, no thyromegaly or masses palpated, and no cervical lymphadenopathy. Supple, full range of motion without nuchal rigidity, or vertebral point tenderness. No Meningismus. Chest/axilla: Normal chest wall appearance and motion. Nontender with no deformity. No lesions are appreciated. Cardiovascular: Regular rate and rhythm with a normal S1 and S2. No gallops, murmurs, or rubs. Normal PMI, no JVD. No pulse deficits. Respiratory: Lungs have equal breath sounds bilaterally, clear to auscultation and percussion. No rales, rhonchi or wheezes noted. No increased work of breathing, no retractions or nasal flaring. Abdomen/GI: Soft, non-tender, with normal bowel sounds. No distension or tympany. No guarding or rebound. No evidence of tenderness throughout. Back: No spinal tenderness. No costovertebral tenderness. Full range of motion. Skin: Warm, dry with normal turgor. Normal color with no rashes, no lesions, and no evidence of cellulitis. MS/ Extremity: Pulses equal, no cyanosis. Neurovascular intact. Full, normal range of motion. Psych: Awake, alert, with orientation to person, place and time. Behavior, mood, and affect are within normal limits. 20:10 Neuro: Neurological exam except for lower extremity weakness bilaterally and equally particularly on the flexor muscles. No musculoskeletal tenderness on palpation. Neuro patient was patient has a normal neurological exam. No deficits sensory or motor noted other than the weakness.. Vital Signs: 19:54 BP 153 / 110; Pulse 74; Resp 18; Temp 98.1(O); Pulse Ox 96% on R/A; Weight 181.44 kg; oe Height 6 ft. 1 in. (185.42 cm); 21:00 BP 152 / 86; Pulse 73; Resp 28; Pulse Ox 95% on R/A; vc1 22:00 BP 145 / 123; Pulse 78; Resp 22; Pulse Ox 96% on R/A; vc1 23:00 BP 153 / 99; Pulse 73; Resp 20; Pulse Ox 96% on R/A; vc1 19:54 Body Mass Index 52.77 (181.44 kg, 185.42 cm) oe MDM: 19:51 Patient medically screened. sp3 20:11 Data reviewed: vital signs, nurses notes. ED course: 7-year-old male with lower sp3 extremity weakness and generalized weakness. Will obtain laboratory values, EKG, chest x-ray, BNP level and evaluate further based on those values. I do not believe at this time patient is having acute coronary syndrome, volume overload, hypertensive urgency, sepsis, critical findings.. 22:09 ED course: Prior level was 330 in the setting of normal creatinine. Diagnosed with sp3 NSTEMI admit to the hospital. Aspirin and Lovenox were given in the ED patient is stable otherwise.. 07/20 19:53 Order name: Basic Metabolic Panel sp3 07/20 19:53 Order name: CBC with Diff; Complete Time: 21:54 sp3 07/20 19:53 Order name: Troponin HS sp3 07/20 19:53 Order name: BNP sp3 07/20 22:14 Order name: SARS RAPID la1 07/20 22:49 Order name: Magnesium la1 07/20 19:53 Order name: XRAY Chest (1 view); Complete Time: 21:09 sp3 07/20 22:49 Order name: Phosphorus la1 07/20 23:09 Order name: Phosphorus EDMS 07/20 23:09 Order name: Magnesium EDMS 07/21 03:11 Order name: CBC with Automated Diff EDMS 07/21 03:38 Order name: Comprehensive Metabolic Panel EDMS 07/21 03:38 Order name: Troponin High Sensitivity EDMS 07/21 03:38 Order name: Magnesium EDMS 07/20 19:53 Order name: EKG; Complete Time: 19:53 sp3 07/20 19:53 Order name: Cardiac monitoring; Complete Time: 20:27 sp3 07/20 19:53 Order name: EKG - Nurse/Tech; Complete Time: 20:27 sp3 07/20 19:53 Order name: IV Saline Lock; Complete Time: 21:40 sp3 07/20 19:53 Order name: Labs collected and sent; Complete Time: 21:40 sp3 07/20 19:53 Order name: O2 Per Protocol; Complete Time: 20:27 sp3 07/20 19:53 Order name: O2 Sat Monitoring; Complete Time: 20:27 sp3 Administered Medications: 22:49 Drug: Lovenox (enoxaparin) 1 mg/kg Route: Sub-Q; Site: left lower abdomen; vc1 23:00 Follow up: Response: No adverse reaction vc1 22:50 Drug: Aspirin 325 mg Route: PO; vc1 07/21 01:19 Follow up: Response: No adverse reaction; No change in condition vc1 Disposition Summary: 07/20/22 22:10 Hospitalization Ordered Hospitalization Status: Inpatient Admission sp3 Provider: Jose G Durán sp3 Condition: Stable sp3 Problem: an acute exacerbation sp3 Symptoms: have worsened sp3 Bed/Room Type: Standard sp3 Location: Telemetry/MedSurg (Inpatient)(07/21/22 08:16) bd Room Assignment: 421(07/21/22 08:16) bd Diagnosis - Subsequent non-ST elevation (NSTEMI) myocardial infarction sp3 Forms: - Medication Reconciliation Form sp3 - SBAR form sp3 Signatures: Dispatcher [employer] EDCA Rosario Clemente Martha, RN RN Leonidas Werner MD MD sp3 [place], Angeles, RN RN vc1 Corrections: (The following items were deleted from the chart) 07/20 22:10 Telemetry/MedSurg (Inpatient) sp3 22:10 sp3 07/21 08:16 07/20 22:26 [facility] ER [facility] 07/21 08:07/20 22:26 ERHOLD- [facility]
--- NOTE | 2022-07-20 22:11 | ER ---
Nurse's Notes [facility] Name: Jameel Patel Age: 31 yrs Sex: Male : 1990 Arrival Date: 07/20/2022 Time: 19:49 Bed 6 Private MD: Diagnosis: Subsequent non-ST elevation (NSTEMI) myocardial infarction Presentation: 07/20 19:50 Chief complaint: Patient states: "For the last 2 days my legs have been cramping if I vc1 try to move them. I am worried my potassium is low because that has happened before.". 19:50 Coronavirus screen: Vaccine status: Patient reports receiving the 1st dose of the Covid vc1 vaccine. At this time, the client does not indicate any symptoms associated with coronavirus-19. Ebola Screen: No symptoms or risks identified at this time. Initial Sepsis Screen: Does the patient meet any 2 criteria? No. Patient's initial sepsis screen is negative. Does the patient have a suspected source of infection? No. Patient's initial sepsis screen is negative. Risk Assessment: Do you want to hurt yourself or someone else? Patient reports no desire to harm self or others. Onset of symptoms was July 18, 2022. 19:50 Method Of Arrival: EMS: [facility] vc1 19:50 Acuity: PAT 3 vc1 Triage Assessment: 20:25 General: Appears in no apparent distress. uncomfortable, obese, Behavior is calm, vc1 cooperative, appropriate for age. Pain: Complains of pain in right leg and left leg Pain does not radiate. Pain currently is 0 out of 10 on a pain scale. at worst was 2 out of 10 on a pain scale. Quality of pain is described as crampy, Pain began 2-3 days ago. Is episodic, Alleviated by rest, Aggravated by increased activity, repositioning, movement. EENT: No deficits noted. Neuro: Level of Consciousness is awake, alert, obeys commands, Oriented to person, place, time, situation, Appropriate for age. Cardiovascular: No deficits noted. Respiratory: Airway is patent Respiratory effort is even, unlabored, Respiratory pattern is regular, symmetrical. GI: No deficits noted. : No deficits noted. Derm: No deficits noted. Musculoskeletal: Reports weakness in right leg and left leg. Historical: - Allergies: 20:22 NKDA; vc1 - Home Meds: 20:22 metoprolol tartrate 100 mg Oral tab 1 tab 2 times per day [Active]; losartan 50 mg oral vc1 tab 1 tab once daily [Active]; furosemide 40 mg Oral tab 1 tab 2 times per day [Active]; spironolactone 25 mg Oral tab 1 tab once daily [Active]; - PMHx: 20:22 Hypertension; Congestive heart failure; vc1 - PSHx: 20:22 None; vc1 - Immunization history:: Adult Immunizations up to date, Client reports receiving the Pepito \\T\\ Pepito single-dose vaccine. - Social history:: Smoking status: Patient reports use of chewing tobacco. Screenin:25 Abuse screen: Denies threats or abuse. Nutritional screening: No deficits noted. vc1 Tuberculosis screening: No symptoms or risk factors identified. Fall Risk None identified. Assessment: 21:00 Reassessment: Patient and/or family updated on plan of care and expected duration. Pain vc1 level reassessed. Patient is alert, oriented x 3, equal unlabored respirations, skin warm/dry/pink. Patient states symptoms have not improved. 22:00 Reassessment: No changes from previously documented assessment. Patient and/or family vc1 updated on plan of care and expected duration. Pain level reassessed. Patient is alert, oriented x 3, equal unlabored respirations, skin warm/dry/pink. 23:00 Reassessment: No changes from previously documented assessment. Patient and/or family vc1 updated on plan of care and expected duration. Pain level reassessed. Patient is alert, oriented x 3, equal unlabored respirations, skin warm/dry/pink. Patient denies pain at this time. Patient states symptoms have not improved. Vital Signs: 19:54 BP 153 / 110; Pulse 74; Resp 18; Temp 98.1(O); Pulse Ox 96% on R/A; Weight 181.44 kg; oe Height 6 ft. 1 in. (185.42 cm); 21:00 BP 152 / 86; Pulse 73; Resp 28; Pulse Ox 95% on R/A; vc1 22:00 BP 145 / 123; Pulse 78; Resp 22; Pulse Ox 96% on R/A; vc1 23:00 BP 153 / 99; Pulse 73; Resp 20; Pulse Ox 96% on R/A; vc1 19:54 Body Mass Index 52.77 (181.44 kg, 185.42 cm) oe ED Course: 19:49 Patient arrived in ED. mw2 19:51 Leonidas Werner MD is Attending Physician. sp3 20:13 XRAY Chest (1 view) In Process Unspecified. EDMS 20:20 Angeles Miguel, RN is Primary Nurse. vc1 20:22 Triage completed. vc1 20:25 Arm band placed on right wrist. vc1 20:27 Patient has correct armband on for positive identification. Bed in low position. Call vc1 light in reach. Client placed on continuous cardiac and pulse oximetry monitoring. NIBP monitoring applied. 22:10 Jose G Durán MD is Hospitalizing Provider. sp3 23:30 No provider procedures requiring assistance completed. Patient admitted, IV remains in vc1 place. 07/21 07:20 Primary Nurse role handed off by Angeles Miguel RN bd 09:07 Phosphorus Sent. kcRaffi 09:07 Magnesium Sent. kc6 Administered Medications: 07/20 22:49 Drug: Lovenox (enoxaparin) 1 mg/kg Route: Sub-Q; Site: left lower abdomen; vc1 23:00 Follow up: Response: No adverse reaction vc1 22:50 Drug: Aspirin 325 mg Route: PO; vc1 07/21 01:19 Follow up: Response: No adverse reaction; No change in condition vc1 Medication: 07/20 20:25 VIS not applicable for this client. vc1 Outcome: 22:10 Decision to Hospitalize by Provider. sp3 23:30 Admitted to ER Hold. Please see [facility] for further documentation. vc1 23:30 Condition: stable 23:30 Instructed on the need for admit. vc1 07/21 09:13 Patient left the ED. jh6 Signatures: Dispatcher [employer] EDMS Rosario Clemente Orlando oe Davian Hilario mw2 Leonidas Werner MD MD sp3 Madison Rain RN RN jh6 Angeles Miguel, JUANY RN vc1 Viktoria Dye kc6
[2022-07-20] MEDS ORDERED: ASPIRIN 325 MG TAB ONE (22:23)
[2022-07-20] MEDS ORDERED: ENOXAPARIN 80 MG/0.8 ML SQ ONE (22:24)
[2022-07-20] MEDS ORDERED: ENOXAPARIN 100 MG/ML SYR SQ ONE (22:24)
--- NOTE | 2022-07-20 23:07 | P.HP ---
Certification for Inpatient Patient admitted to: Observation With expected LOS: <2 Midnights Patient will require the following post-hospital care: None Practitioner: I am a practitioner with admitting privileges, knowledge of patient current condition, hospital course, and medical plan of care. Services: Services provided to patient in accordance with Admission requirements found in Title 42 Section 412.3 of the Code of Federal Regulations Patient History Date of Service: 07/20/22 Reason for admission: NSTEMI History of Present Illness: 31-year-old male with history of CHFunknown EF, hypertension, morbid obesity presents the emergency department for lower extremity weakness. He was recently released about a week ago from [facility] after having an episode of respiratory failure/CHF requiring intubation. He was evaluated in the ED and his labs were significant for elevated trop-330.1, elevated BNP-2181. He was given lovenox and asa in ed and ED provider wishes to admit for further evaluation. Last heart cath december-pt reported clean coronaries Allergies No Known Allergies Allergy (Verified 10/13/21 02:09) Home Medications: Potassium Chloride 20 meq PO BID 10/13/21 Amlodipine [Norvasc*] 10 mg PO DAILY 30 Days #30 tab 10/14/21 Spironolactone [Aldactone] 50 mg PO DAILY 30 Days #30 tablet 10/14/21 carvediloL [Coreg*] 12.5 mg PO BID 30 Days #60 tab 10/14/21 lisinopriL [Prinivil*] 10 mg PO DAILY 30 Days #30 tab 10/14/21 - Past Medical/Surgical History Diabetic: No -: Hypertension -: CHF-unknown EF -: Brain aneurysm with stents X2 and coiling -: heart cath december 2021 Psychosocial/ Personal History: Patient sells cell phones, lives at home with family - Family History Father -: Heart disease Notes: pericarditis. MA Brother -: Heart disease, Hypertension - Social History Smoking Status: Never smoker Alcohol use: No CD- Drugs: No Caffeine use: Yes Place of Residence: Home Review of Systems 10-point ROS is otherwise unremarkable General: Weakness, Other (RODO LE weakness) Physical Examination - Physical Exam General: Alert, In no apparent distress, Oriented x3, Obese HEENT: Atraumatic, PERRLA, Mucous membr. moist/pink, EOMI, Sclerae nonicteric Neck: Supple, 2+ carotid pulse no bruit, No LAD, Without JVD or thyroid abnormality Respiratory: Clear to auscultation bilaterally, Normal air movement Cardiovascular: Regular rate/rhythm, Normal S1 S2 Capillary refill: <2 Seconds Gastrointestinal: Normal bowel sounds, No tenderness Musculoskeletal: No tenderness Integumentary: No rashes Neurological: Normal speech, Normal tone, Normal affect - Studies Laboratory Data (last 24 hrs) 07/20/22 21:20: WBC 12.20 H, Hgb 15.0, Hct 45.7, Plt Count 424 H 07/20/22 21:20: Sodium 135 L, Potassium 4.2, BUN 18, Creatinine 1.11, Glucose 102 Assessment and Plan - Plan Assessment: NSTEMI Acute on chronic CHF-unknown EF Hypertension Morbid obesity Plan: NSTEMI: Therapeutic lovenox, ASA, metoprolol, statin, cardiology consult, echo ordered. Will attempt to [facility] and recent echo. Suspect demand ischemia as pt reports clean heart cath in december. Acute on chronic CHF-unknown EF: Continue home meds losartan, lasix, spironolactone. Suspect systolic CHF, echo ordered. Hypertension: Home meds continued. Morbid obesity: Address lifestyle/dietary changes. DVT PPX: Lovenox Code status: Full Discharge Plan: Home Plan to discharge in: 48 Hours - Advance Directives Does patient have a Living Will: No Does patient have a Durable POA for Healthcare: No - Code Status/Comfort Care Code Status Assessed: Yes (Full code) Critical Care: No Time Spent Managing Pts Care (In Minutes): 70
[2022-07-20 23:08] LABS: Magnesium 2.1 mg/dL (1.8-2.4); Phosphorus 3.9 mg/dL (2.5-4.9)
[2022-07-21 00:59] LABS: SARS-CoV-2 Antigen Rapid Res Negative (Negative)
[2022-07-21] MEDS ORDERED: ONDANSETRON 4 MG/2 ML VIAL IV PRN (01:24)
[2022-07-21 01:30] VITALS: BMI 59.3
[2022-07-21] MEDS ORDERED: METOPROLOL TAR 50 MG TAB ONE ×2 (02:28→08:57)
[2022-07-21 03:10] LABS: Absolute Lymphocytes (CBC) 1.9 K/uL (0.7-4.9); Hematocrit 44.9 % (39.6-49.0); Lymphocytes % 16.7 % (15.3-44.8); MCV 81.2 fL (80-100); MPV 8.9 fL (7.6-11.3); RBC Red Blood Cell Count 5.53 M/uL (4.33-5.43)
[2022-07-21 03:34] LABS: Albumin 3.8 g/dL (3.4-5.0); Potassium 4.4 mmol/L (3.5-5.1); Protein, Total 7.7 g/dL (6.4-8.2)
[2022-07-21 03:37] LABS: Troponin High Sensitivity 310.3 pg/mL (<58.9)
[2022-07-21] MEDS ORDERED: LOSARTAN POTASSIUM 50 MG TABLET ONE (08:56)
[2022-07-21] MEDS ORDERED: ASPIRIN 81 MG CHEWABLE TABLET ONE (08:57)
[2022-07-21] MEDS ORDERED: FUROSEMIDE 40 MG/4 ML VIAL ONE (08:57)
[2022-07-21] MEDS: ASPIRIN EC 81 MG TAB PO SCH (09:00)
[2022-07-21] MEDS: LOSARTAN POTASSIUM 50 MG TABLET PO SCH (09:00)
[2022-07-21] MEDS: FUROSEMIDE 40 MG/4 ML VIAL IV SCH ×2 (09:00→17:57)
[2022-07-21] MEDS: SPIRONOLACTONE 25 MG TABLET PO SCH (09:00)
[2022-07-21] MEDS: METOPROLOL TAR 50 MG TAB PO SCH ×2 (09:00→22:29)
--- NOTE | 2022-07-21 13:06 | EKG ---
Test Date: 2022-07-20 Test Time: 20:06:21 Manager Field Investigations: JOSS MEASUREMENT RESULTS: Intervals: Rate: 71 OR: 218 QRSD: 132 QT: 406 QTc: 441 [place]: P: -11 OR: 218 QRS: -37 T: 73 INTERPRETIVE STATEMENTS: Sinus rhythm with 1st degree AV block Left axis deviation Left ventricular hypertrophy with QRS widening Abnormal ECG Compared to ECG 07/06/2022 23:33:26 First degree AV block now present Left-axis deviation now present Atrial premature complex(es) no longer present Ventricular premature complex(es) no longer present Early repolarization no longer present Electronically Signed On 07-21-22 13:04:42 CDT by Khurram Torres
[2022-07-21] MEDS ORDERED: ATORVASTATIN 40 MG TAB PO SCH (21:00)
--- NOTE | 2022-07-21 21:00 | P.PN ---
Date of Service: 07/21/22 Subjective: feels slightly better with muscle cramps / soreness mostly in thighs weakness in shoulders/upper arms, hips/upper legs ROS: 10 point ROS as noted above, otherwise negative Physical Exam: Gen: NAD, AOx3 HEENT: normal conjunctiva, sclera anicteric CV: regular rate & rhythm, no edema Pulm: non-labored respirations, clear bilaterally MSK: no contractures, no tenderness Skin: no rashes, no lesions Neuro: normal speech, normal affect, moves all extremities vitals reviewed Problem List NSTEMI Proximal muscle weakness Acute on chronic CHF (HFrEF) secondary to NICM HTN Morbid obesity NSTEMI trop elevated pt denies chest pain / shortness of breath mostly just reporting b/l extremity weakness trop trending flat cardio consulted echo ordered patient hospitalized ~2 weeks ago, in [facility] for septic and cardiogenic shock, severe uncontrolled HTN, acute biventricular heart failure, and noted to have brief afib that resolved quickly reportedly had clean heart cath back in December Acute on chronic CHF (HFrEF) recent acute exacerbation, in cardiogenic shock ~2 weeks ago does not appear significantly overloaded at this time, given Lasix continue home meds as tolerated Proximal muscle weakness patient's chief complaint /reason for presentation to ED unclear etiology, patient states this occurs throughout lifetime later reported seems to be after significant stressors (hospitalization) patient reports most recent episode were associated with hypokalemia no hypokelamia this time TSH normal check CPK aldolase neuro consult Code: full Dispo: home, ~2 days Time Spent Managing Pts Care (In Minutes): 35
--- NOTE | 2022-07-22 01:22 | CON ---
Consultation called because of proximal muscle weakness in the legs and arms. History Of Present Illness: Mr. Patel is a 31-year-old, right-handed, morbidly obese patient with history of hypertension and episodic generalized weakness, who comes to [facility] with chest pain and possible [id number] myocardial infarction. The patient's weakness as noted has been episodic and would involve both lower and upper extremities with more proximal and distal weakness. Some episodes occur after exertion, some perhaps after certain foods, but some without clear etiology. On more than 1 occasion, he has been found to have low potassium when these episodes have occurred and he said after receiving potassium in the emergency room, he would return back to baseline. With this episode, there was no clear immediate precipitating factor when the weakness occurred. Blood work at [facility] did not show low potassium. His potassium was normal at 4.2, but he had elevated troponins around 330 with elevated beta-natriuretic peptide of 2181. His creatine kinase is elevated at 3379. He has a pending aldolase. Liver function studies show elevated AST of 168 and ALT of 122. The rest of his basic metabolic panel is unremarkable. White blood cell count slightly elevated at 12.2, normal hemoglobin and hematocrit, platelets were normal. COVID testing was negative. Chest x-ray showed no acute abnormalities with clear lungs. Past Medical History: As noted. Past Surgical History: Brain aneurysm, 2 stents and coiling, and cardiac catheterization in December 2021, showing no significant abnormalities. Additionally is hypertension. Allergies: NO KNOWN DRUG ALLERGIES. Medications: Potassium 20 mEq twice daily, Norvasc 10 mg daily, Aldactone 50 mg daily, Coreg 12.5 mg twice daily, and Prinivil 10 mg daily. Family History: Positive for heart disease in father and father also had multiple sclerosis. A brother with myocardial disease. Social History: No alcohol, tobacco, or IV drug use. Review of Systems: Episodic weakness in the lower and upper extremities and less so involving the hands. Otherwise, no recent chills or fever, myalgias, or arthralgias. No recent rash or weight change. Physical Examination: Vital Signs: Blood pressure 123/73, pulse 71, respiratory rate 18, temperature 98.2, oxygen saturation 95%. General: Mr. Patel is resting in bed. He has no significant distress. He is morbidly obese. HEENT: He is normocephalic, atraumatic. Sclerae anicteric. Oropharynx is moist. Neck: Supple. Chest: Clear. Heart: Regular. Extremities: Show no significant edema or cyanosis. Neurological: He is alert and oriented to situation, place, and person. He has no obvious cranial nerve deficits. He has no sensory deficit in the arm or legs. Reflexes depressed. His weakness pattern is proximal, around 3 to 4/5, in the upper extremity and lower extremity proximal 3/5, distal in the upper extremity 4/5, and distal in the lower extremity 5/5. He will be ambulated with the physical therapist. Assessment: Mr. Patel is a 31-year-old patient with periodic proximal lower extremity weakness. He currently has elevated CPK and cardiac enzymes. Aldolase is pending. In the past, he has had low potassium with episodes of proximal weakness. It should be noted he does have actually hammertoes and he said there may be other family members with hammertoes bilaterally. His differential diagnosis may include a congenital myopathy, however, hypokalemic periodic paralysis may be considered, in addition to a myositis given his elevated CPK. At this point, he likely would benefit from an EMG nerve conduction study, but that is not available at this hospital. A lumbar puncture may also be helpful to rule out CIDP-type pattern that is less likely given the pattern of weakness. He also has liver dysfunction, which is possibly another contributor to his deficits. Plan: 1. IV hydration will be helpful with just normal saline, perhaps 2 L, and repeat CPK to look for improvement. 2. Physical therapy perhaps inpatient, if he qualifies, will be helpful as he recovers strength in the proximal lower extremities. 3. Consider doing a pulmonary function study to evaluate for any potential for respiratory issues. 4. The patient will be followed while in hospital. LB/MODL Voice ID: [id number] Report ID: [id number] ZACHERY
[2022-07-22 03:50] LABS: Absolute Lymphocytes (CBC) 1.9 K/uL (0.7-4.9); Hematocrit 45.8 % (39.6-49.0); Lymphocytes % 16.4 % (15.3-44.8); MCV 81.3 fL (80-100); MPV 8.9 fL (7.6-11.3); RBC Red Blood Cell Count 5.64 M/uL (4.33-5.43)
[2022-07-22 04:50] LABS: Albumin 3.8 g/dL (3.4-5.0); Bilirubin Total 1.1 mg/dL (0.2-1.0); Magnesium 2.2 mg/dL (1.8-2.4); Potassium 4.2 mmol/L (3.5-5.1); Protein, Total 7.8 g/dL (6.4-8.2)
[2022-07-22] MEDS ORDERED: NA CHLORIDE 0.9% 1,000 ML IV SCH (07:00)
[2022-07-22] MEDS: METOPROLOL TAR 50 MG TAB PO SCH (09:10)
[2022-07-22] MEDS: ASPIRIN EC 81 MG TAB PO SCH (09:11)
[2022-07-22] MEDS: LOSARTAN POTASSIUM 50 MG TABLET PO SCH (09:12)
[2022-07-22] MEDS: SPIRONOLACTONE 25 MG TABLET PO SCH (09:12)
--- NOTE | 2022-07-22 09:30 | ECHO ---
HEIGHT: 6 ft 1 in WEIGHT: 450 lb 0 oz DATE OF STUDY: 07/21/[address]: Dave Amezquita NP 2-DIMENSIONAL: YES M.MODE: YES DOPPLER: YES COLOR FLOW: YES TDS: YES PORTABLE: YES DEFINITY: NO BUBBLE STUDY: YES DIAGNOSIS: NSTEMI/CONGESTIVE HEART FAILURE CARDIAC HISTORY: CATHERIZATION: YES SURGERY: NO PROSTHETIC VALVE: NO PACEMAKER: NO MEASUREMENTS (cm) DIASTOLIC (NORMALS) SYSTOLIC (NORMALS) IVSd 1.7 (0.6-1.2) LA Diam 4.2 (1.9-4.0) LVEF 20% LVIDd 5.9 (3.5-5.7) LVIDs 5.5 (2.0-3.5) %FS 8% LVPWd 1.9 (0.6-1.2) Ao Diam 3.2 (2.0-3.7) 2 DIMENSIONAL ASSESSMENT: RIGHT ATRIUM: NORMAL LEFT ATRIUM: DILATED RIGHT VENTRICLE: NORAML LEFT VENTRICLE: DILATED, LEFT VENTRICULAR HYPERTROPHY TRICUSPID VALVE: NORMAL MITRAL VALVE: NORMAL PULMONIC VALVE: NORMAL AORTIC VALVE: NORMAL PERICARDIAL EFFUSION: NONE AORTIC ROOT: NORMAL LEFT VENTRICULAR WALL MOTION: SEVERE GLOBAL HYPOKINESIS. DECREASED LEFT VENTRICULAR COMPLIANCE. DOPPLER/COLOR FLOW: COMMENTS: SEVERE GLOBAL HYPOKINESIS - EJECTION FRACTION 20%. DECREASED LEFT VENTRICULAR COMPLIANCE. LEFT VENTRICULAR HYPERTROPHY. LEFT ENTRICULAR ENLARGEMENT, LEFT ATRIAL ENLARGEMENT. TECHNOLOGIST: SREEDHAR TEE/ MARVIN JAMES
[2022-07-22 11:55] VITALS: BP 125/75; TEMP 97.6
--- NOTE | 2022-07-22 12:20 | P.CNS ---
Date of Consult: 07/22/22 Reason for Consult: Abnormal results of kidney function and serum testing Requesting Physician: Jose G Durán Chief Complaint: NSTEMI History of Present Illness: 31-year-old male with history of dilated cardiomyopathy, LVEF dysfunction, morbid obesity presented to the emergency department for lower extremity weakness for a few days. Symptoms were severe enough that pt could not ambulate and reports he was largely couch bound. He denies any sig myalgias or any cramps or spasms. He was recently released about a week ago from [facility] after having an episode of respiratory failure/CHF requiring intubation. Pt's renal function tests earlier today came back showing elevated Cr level for which Nephrology is consulted Allergies No Known Allergies Allergy (Verified 07/22/22 09:17) Home Medications: Furosemide [Lasix] 40 mg PO BID 07/21/22 Losartan Potassium [Cozaar] 50 mg PO DAILY 07/21/22 Metoprolol Tartrate [Lopressor] 100 mg PO BID 07/21/22 Spironolactone [Aldactone] 25 mg PO DAILY 07/21/22 - Past Medical/Surgical History Diabetic: No -: Hypertension -: CHF-unknown EF -: Brain aneurysm with stents X2 and coiling -: heart cath december 2021 Psychosocial/ Personal History: Patient sells cell phones, lives at home with family - Family History Father Medical History: Heart disease Notes: pericarditis. ID Brother Medical History: Heart disease, Hypertension - Social History Smoking Status: Unknown if ever smoked Alcohol use: No CD- Drugs: No Caffeine use: Yes Place of Residence: Home Review of Systems General: Weakness Eyes: Unremarkable ENT: Unremarkable Respiratory: Unremarkable Cardiovascular: Other (Cardiomyopathy) Gastrointestinal: Unremarkable Genitourinary: Unremarkable Musculoskeletal: Other (LE weakness) Integumentary: Other Neurological: Other Lymphatics: Unremarkable Physical Examination Temp Pulse Resp BP Pulse Ox 97.6 F 74 16 125/75 94 07/22/22 11:54 07/22/22 11:54 07/22/22 11:54 07/22/22 11:54 07/22/22 11:54 General: Alert, In no apparent distress, Oriented x3 HEENT: Atraumatic, Normocephalic, EOMI Neck: Supple Respiratory: Clear to auscultation bilaterally, Normal air movement Cardiovascular: Regular rate/rhythm, Normal S1 S2 Gastrointestinal: Soft and benign, No tenderness Musculoskeletal: No clubbing, No swelling, No contractures, No erythema, No tenderness Integumentary: No rashes, No breakdown Neurological: Normal speech, Normal tone, Normal affect Conclusions/Impression: 1. Abnormal results of kidney function studies 2. Stage I CASEY 3. Acute rhabdomyolysis based on CKD > 5x/ULN 4. LE weakness 5. Dilated cardiomyopathy -Cr level had bumped up > 0.3 mg/dl in the past 24h, no episode of hypotension but pt reports having taken several tabs of Advil/NSAIDs at home for LE weakness/achiness prior to admission. -No major electrolyte disturbances to account for symptoms -Unclear etiology of CPK elevation, pt reports was not taking a statin at home, it is ordered here so will d/c. -Can check other muscle enzymes such as Myoglobin and aldolase levels. -LE weakness likely multifactorial and secondary possibly to recent critical illness with ICU hospitalization -Avoid use of NSAIDs. Thank you for this referral, Kev Morgan MD, JOVITA
[2022-07-22 13:43] LABS: Magnesium 2.5 mg/dL (1.8-2.4); Potassium 4.2 mmol/L (3.5-5.1)
--- NOTE | 2022-07-22 15:36 | CON ---
Date of Consultation: 07/21/2022 Reason For Consultation: Congestive heart failure. History Of Present Illness: Mr. Patel is a 31-year-old unfortunate white male. Has a history of hypertension, has a history of chronic systolic congestive heart failure, was recently intubated at [facility]. Was discharged on Lasix, losartan, Lopressor, and Aldactone. Comes in with CHF, elevated tropo shawanda, hypertension that is poorly controlled. Was already better on diuresis after I saw him. He den ied chest pain, denied any nausea, vomiting. Has had diaphoresis, PND, orthopnea, pedal edema. No p alpitation. No syncope. No fever or no chills. Past Medical History: Included above. Allergies: NONE. Medications: Include Lasix, losartan, Lopressor, and Aldactone. Review of Systems: Negative. Social History: Negative. Family History: Noncontributory. Physical Examination: Vital Signs: Blood pressure 163/114, no acute distress, sinus rhythm, afebrile. HEENT: Negative. Neck: Supple with no bruit. Chest: Reveals rales both bases. Cardiac: Revealed a regular rhythm and rate with S3 gallops. No murmurs or rubs. Abdomen: Benign. Extremities: Revealed 1+ edema. Diagnostic Data: Showed troponin is 310. BNP is 22,181. Chest x-ray showed CHF. EKG showed nonspe cific changes. Impression And Plan: 1.Acute on chronic systolic congestive heart failure. 2.Hypertension. 3.Elevated troponin and BNP secondary to demand ischemia. I think his blood pressure needs to be tr eated more aggressively. We should increase the losartan and/or Lopressor. He needs to be diuresed vigorously. His ejection fraction is 20%. I think he needs to go back to [facility] at his convenience an d have his doctors there consider biventricular pacemaker and defibrillator. Case was discussed with Dr. Durán. ANNABEL/CAREY Voice ID: [id number] Report ID: [id number]
--- NOTE | 2022-07-22 20:57 | P.DS ---
Admission Date: 07/20/22 Discharge Date: 07/22/22 Disposition: ROUTINE DISCHARGE Discharge Condition: GOOD Reason for Admission: NSTEMI Consultations: Cardiology - Dr. Goyal Nephrology - Dr. Morgan Brief History of Present Illness: 31yo M, PMH: systolic CHF secondary to NICM, HTN, morbid obesity. Presented to ED due to lower extremity weakness. He was recently released about a week ago from [facility] after having an episode of respiratory failure/CHF requiring intubation. He was evaluated in the ED and his labs were significant for elevated trop-330.1, elevated BNP-2181. He was given lovenox and asa in ed and ED provider wishes to admit for further evaluation. Last heart cath december- reported clean coronaries Hospital Course: Problem List NSTEMI, demand ischemia Proximal muscle weakness acute rhabdomyolysis Acute on chronic CHF (HFrEF) secondary to NICM HTN Morbid obesity Patient presented with bilateral upper and lower extremity weakness - involving proximal muscles > distal. He reports slight chest discomfort and recent hospitalization ~2-3 weeks ago for cardiogenic/septic shock requiring ICU and intubation/pressors. His troponin in the ED was mildly elevated and trended flat. No evidence of ST-t wave changes on EKG. Echocardiogram revealed ~25% EF, similar to previous. Cardiology was consulted, recommended follow up with his [employer] Supervisor as outpatient, no further intervention in the hospital indicated. He was found to have elevated CPK level in the 3000s. He reported muscle soreness /cramping along with his weakness. Unclear exact etiology of his muscle weakness. Prior episodes were associated with hypokalemia according to the patient, however potassium was normal this episode. Thyroid levels were normal. He had improvement of his symptoms with rest. He does report immediate family member with Genaro's syndrome, which may be a possibility. He was recently in the ICU and just discharged a little over a week ago. On day of discharge, CPK levels plateaued, he was ambulating without issue, and ready to go home. He was noted to have a slight increase in his Creatinine to 1.54, recheck later in the day was down to 1.4 after only 150-200ml of IV fluid. Nephrology was consulted. Patient was deemed stable for discharge home. Follow up with PCP in ~1 week, recommend repeat labs - BMP and electrolytes to monitor renal function. Continue home meds as prescribed. Discussed following up with Cardiology, to discuss defibrillator placement given his ongoing low EF. Vital Signs/Physical Exam: Temp Pulse Resp BP Pulse Ox 97.6 F 74 16 125/75 94 07/22/22 11:54 07/22/22 11:54 07/22/22 11:54 07/22/22 11:54 07/22/22 11:54 Physical Exam: Gen: NAD, AOx3 HEENT: normal conjunctiva, sclera anicteric CV: regular rate & rhythm, no edema Pulm: non-labored respirations, clear bilaterally Skin: no rashes, no lesions Neuro: str 5/5 b/l upper/lower extremities Laboratory Data at Discharge: WBC 11.60 K/uL (4.3-10.9) H 07/22/22 02:55 Hgb 15.1 g/dL (13.6-17.9) 07/22/22 02:55 Hct 45.8 % (39.6-49.0) 07/22/22 02:55 Plt Count 355 K/uL (152-406) 07/22/22 02:55 Sodium 134 mmol/L (136-145) L 07/22/22 12:26 Potassium 4.2 mmol/L (3.5-5.1) 07/22/22 12:26 BUN 28 mg/dL (7-18) H 07/22/22 12:26 Creatinine 1.43 mg/dL (0.55-1.3) H 07/22/22 12:26 Glucose 102 mg/dL (74-106) 07/22/22 12:26 Phosphorus Cancelled 07/20/22 22:49 Magnesium 2.5 mg/dL (1.8-2.4) H 07/22/22 12:26 Total Bilirubin 1.1 mg/dL (0.2-1.0) H 07/22/22 02:55 AST 157 U/L (15-37) H 07/22/22 02:55 ALT 130 U/L (12-78) H 07/22/22 02:55 Alkaline Phosphatase 42 U/L (45-117) L 07/22/22 02:55 Home Medications: Furosemide [Lasix] 40 mg PO BID 07/21/22 Losartan Potassium [Cozaar] 50 mg PO DAILY 07/21/22 Metoprolol Tartrate [Lopressor] 100 mg PO BID 07/21/22 Spironolactone [Aldactone] 25 mg PO DAILY 07/21/22 Physician Discharge Instructions: Patient presented with bilateral upper and lower extremity weakness - involving proximal muscles > distal. He reports slight chest discomfort and recent hospitalization ~2-3 weeks ago for cardiogenic/septic shock requiring ICU and intubation/pressors. His troponin in the ED was mildly elevated and trended flat. No evidence of ST-t wave changes on EKG. Echocardiogram revealed ~25% EF, similar to previous. Cardiology was consulted, recommended follow up with his [employer] Supervisor as outpatient, no further intervention in the hospital indicated. He was found to have elevated CPK level in the 3000s. He reported muscle soreness /cramping along with his weakness. Unclear exact etiology of his muscle weakness. Prior episodes were associated with hypokalemia according to the patient, however potassium was normal this episode. Thyroid levels were normal. He had improvement of his symptoms with rest. He does report immediate family member with Genaro's syndrome, which may be a possibility. He was recently in the ICU and just discharged a little over a week ago. On day of discharge, CPK levels plateaued, he was ambulating without issue, and ready to go home. He was noted to have a slight increase in his Creatinine to 1.54, recheck later in the day was down to 1.4 after only 150-200ml of IV fluid. Nephrology was consulted. Patient was deemed stable for discharge home. Follow up with PCP in ~1 week, recommend repeat labs - BMP and electrolytes to monitor renal function. Continue home meds as prescribed. Discussed following up with Cardiology, to discuss defibrillator placement given his ongoing low EF. Followup: Martinez Goyal MD [ACTIVE - CAN ADMIT] - 1 Week (Call to schedule an appointment) NONE,NONE [Primary Care Provider] - 1 Week (Call to schedule an appointment) Time spent managing pt's care (in minutes): 45
[2022-07-23 05:53] VITALS: O2SAT 96
== END 2022-07-22 15:44 | disposition home or self-care (01) | DRG 280 ==
LOC: ER 19:47 → ERHOLD 22:45 → 4TH 07-21 08:55
PROVIDERS: ADMIT Hospitalist; ATTEND Hospitalist
DX: I11.0 Hypertensive heart disease with heart failure (principal); I21.A1 Myocardial infarction type 2; I50.23 Acute on chronic systolic (congestive) heart failure; M62.82 Rhabdomyolysis; N17.9 Acute kidney failure, unspecified; Z68.43 Body mass index [BMI] 50.0-59.9, adult; I42.0 Dilated cardiomyopathy; M62.81 Muscle weakness (generalized); E66.01 Morbid (severe) obesity due to excess calories; M20.40 Other hammer toe(s) (acquired), unspecified foot; K76.89 Other specified diseases of liver; F17.220 Nicotine dependence, chewing tobacco, uncomplicated; Z20.822 Contact with and (suspected) exposure to COVID-19; Z79.899 Other long term (current) drug therapy; Z95.5 Presence of coronary angioplasty implant and graft; Z87.898 Personal history of other specified conditions; Z82.69 Family history of other diseases of the musculoskeletal system and connective tissue; Z82.49 Family history of ischemic heart disease and other diseases of the circulatory system; Z82.0 Family history of epilepsy and other diseases of the nervous system
CPT/HCPCS: 36415; 71045; 80048; 80053; 82085; 82550; 83735; 83874; 83880; 84100; 84443; 84484; 85025; 85652; 87811; 93005; 93306; 96372; 97116; 97161; 99285; J1650; J1940; J7030